=== PATIENT | female | born 1995 | race Caucasian/White ===

== ENCOUNTER 2017-04-28 15:28 | Emergency (ER) | payer BC ==
[2017-04-28 15:41] VITALS: RESP 16; TEMP 97.4
[2017-04-28] MEDS ORDERED: SODIUM CHLORIDE 0.9% 500 ML IV STA (17:02)
--- NOTE | 2017-04-28 17:03 | ED ---
General Adult HPI - General Chief complaint: Vaginal Bleeding Stated complaint: 5 wks and spotting Time Seen by Provider: 04/28/17 16:46 Source: patient, RN notes reviewed Mode of arrival: ambulatory Limitations: no limitations - History of Present Illness Initial comments: Patient's a 21-year-old female G1, P0, presenting today with chief complaint of some vaginal spotting and lower abdominal cramping. Patient admits that she is approximately 5 weeks from last menstrual cycle. She states that cramping started earlier this morning. Also admits to some spotting. She states the cramping has improved. She states she is currently no longer spotting. She does admit that it was a bright red color that she saw earlier in the morning. Patient denies any other complaints or symptoms at this time. Patient denies any recent fever, chills, shortness of breath, chest pain, back pain, numbness or tingling, constipation or diarrhea, headaches or visual changes, or any other complaints. - Related Data Home Medications Medication Instructions Recorded Confirmed Albuterol Inhaler [Ventolin Hfa 1 - 2 puff INHALATION RT-QID PRN 04/28/17 Inhaler] Allergies Allergy/AdvReac Type Severity Reaction Status Date / Time No Known Allergies Allergy Verified 04/28/17 16:49 Review of Systems ROS Statement: Those systems with pertinent positive or pertinent negative responses have been documented in the HPI. ROS Other: All systems not noted in ROS Statement are negative. Past Medical History Past Medical History: Asthma History of Any Multi-Drug Resistant Organisms: None Reported Past Surgical History: No Surgical Hx Reported Past Psychological History: No Psychological Hx Reported Smoking Status: Never smoker Past Alcohol Use History: None Reported Past Drug Use History: None Reported General Exam - General Exam Comments Initial Comments: General: The patient is awake and alert, in no distress, and does not appear acutely ill. Eye: Pupils are equal, round and reactive to light, extra-ocular movements are intact. No nystagmus. There is normal conjunctiva bilaterally. No signs of icterus. Ears, nose, mouth and throat: There are moist mucous membranes and no oral lesions. Neck: The neck is supple, there is no tenderness or JVD. Cardiovascular: There is a regular rate and rhythm. No murmur, rub or gallop is appreciated. Respiratory: Lungs are clear to auscultation, respirations are non-labored, breath sounds are equal. No wheezes, stridor, rales, or rhonchi. Gastrointestinal: Mild tenderness right lower quadrant. No rebound tenderness. No guarding. No CVA tenderness. Musculoskeletal: Normal ROM, no tenderness. Strength 5/5. Sensation intact. Pulses equal bilaterally 2+. Neurological: A&O x 3. CN II-XII intact, There are no obvious motor or sensory deficits. Coordination appears grossly intact. Speech is normal. Skin: Skin is warm and dry and no rashes or lesions are noted. Psychiatric: Cooperative, appropriate mood & affect, normal judgment. Limitations: no limitations Course Vital Signs 04/28/17 15:39 Temperature 97.4 F L Pulse Rate 102 H Respiratory 16 Rate Blood Pressure 132/82 O2 Sat by Pulse 100 Oximetry Medical Decision Making - Medical Decision Making Case discussed in detail with attending physician Dr. Vance. Patient reexamined at this time shows no signs of distress resting comfortably. Patient's ultrasound reviewed and shows no intrauterine at this time. Does show complex cystic lesion on the right ovary measuring 2.5 cm. Patient's labs been reviewed beta hCG 1200. Rh+. Patient is in the pain has improved. Currently comfortable. Abdomen soft on palpation. Vitals are stable. Remaining labs been reviewed. Repeat urinalysis was performed to rule out infection. At this time patient will be discharged home to follow-up with her [employer]. We'll have a prescription for repeat beta hCG. At this time shows comfortable in his in agreement with this plan. She is advised to return if abdominal pain increases or worsens or for any other concerns. - Lab Data Result diagrams: 04/28/17 18:22 04/28/17 18:22 Lab Results 04/28/17 04/28/17 04/28/17 Range/Units 16:00 18:22 18:22 WBC 13.5 H (3.8-10.6) k/uL RBC 4.74 (3.80-5.40) m/uL Hgb 14.0 (11.4-16.0) gm/dL Hct 45.2 (34.0-46.0) % MCV 95.5 (80.0-100.0) fL MCH 29.6 (25.0-35.0) pg MCHC 31.0 (31.0-37.0) g/dL RDW 12.4 (11.5-15.5) % Plt Count 288 (150-450) k/uL Neutrophils % 70 % Lymphocytes % 22 % Monocytes % 5 % Eosinophils % 2 % Basophils % 0 % Neutrophils # 9.4 H (1.3-7.7) k/uL Lymphocytes # 2.9 (1.0-4.8) k/uL Monocytes # 0.6 (0-1.0) k/uL Eosinophils # 0.3 (0-0.7) k/uL Basophils # 0.0 (0-0.2) k/uL Sodium 139 (137-145) mmol/L Potassium 3.9 (3.5-5.1) mmol/L Chloride 103 (98-107) mmol/L Carbon Dioxide 22 (22-30) mmol/L Anion Gap 14 mmol/L BUN 11 (7-17) mg/dL Creatinine 0.60 (0.52-1.04) mg/dL Est GFR (MDRD) Af Amer >60 (>60 ml/min/1.73 sqM) Est GFR (MDRD) Non-Af >60 (>60 ml/min/1.73 sqM) Glucose 77 (74-99) mg/dL Calcium 9.8 (8.4-10.2) mg/dL Total Bilirubin 0.4 (0.2-1.3) mg/dL AST 19 (14-36) U/L ALT 28 (9-52) U/L Alkaline Phosphatase 70 (38-126) U/L Total Protein 7.6 (6.3-8.2) g/dL Albumin 4.5 (3.5-5.0) g/dL HCG, Quant 1286.1 mIU/mL Urine Color Yellow Urine Appearance Cloudy H (Clear) Urine pH 5.5 (5.0-8.0) Ur Specific [place] 1.027 (1.001-1.035) Urine Protein Trace H (Negative) Urine Glucose (UA) Negative (Negative) Urine Ketones Negative (Negative) Urine Blood Trace H (Negative) Urine Nitrite Negative (Negative) Urine Bilirubin Negative (Negative) Urine Urobilinogen <2.0 (<2.0) mg/dL Ur Leukocyte Esterase Large H (Negative) Urine RBC 5 (0-5) /hpf Urine WBC 13 H (0-5) /hpf Ur Squamous Epith Cells 17 H (0-4) /hpf Calcium Oxalate Crystal Occasional H (None) /hpf Urine Bacteria Occasional H (None) /hpf Urine Mucus Moderate H (None) /hpf Blood Type Blood Type Recheck 04/28/17 04/28/17 Range/Units 18:22 19:16 WBC (3.8-10.6) k/uL RBC (3.80-5.40) m/uL Hgb (11.4-16.0) gm/dL Hct (34.0-46.0) % MCV (80.0-100.0) fL MCH (25.0-35.0) pg MCHC (31.0-37.0) g/dL RDW (11.5-15.5) % Plt Count (150-450) k/uL Neutrophils % % Lymphocytes % % Monocytes % % Eosinophils % % Basophils % % Neutrophils # (1.3-7.7) k/uL Lymphocytes # (1.0-4.8) k/uL Monocytes # (0-1.0) k/uL Eosinophils # (0-0.7) k/uL Basophils # (0-0.2) k/uL Sodium (137-145) mmol/L Potassium (3.5-5.1) mmol/L Chloride (98-107) mmol/L Carbon Dioxide (22-30) mmol/L Anion Gap mmol/L BUN (7-17) mg/dL Creatinine (0.52-1.04) mg/dL Est GFR (MDRD) Af Amer (>60 ml/min/1.73 sqM) Est GFR (MDRD) Non-Af (>60 ml/min/1.73 sqM) Glucose (74-99) mg/dL Calcium (8.4-10.2) mg/dL Total Bilirubin (0.2-1.3) mg/dL AST (14-36) U/L ALT (9-52) U/L Alkaline Phosphatase (38-126) U/L Total Protein (6.3-8.2) g/dL Albumin (3.5-5.0) g/dL HCG, Quant mIU/mL Urine Color Light Yellow Urine Appearance Clear (Clear) Urine pH 6.5 (5.0-8.0) Ur Specific [place] 1.003 (1.001-1.035) Urine Protein Negative (Negative) Urine Glucose (UA) Negative (Negative) Urine Ketones Trace H (Negative) Urine Blood Negative (Negative) Urine Nitrite Negative (Negative) Urine Bilirubin Negative (Negative) Urine Urobilinogen <2.0 (<2.0) mg/dL Ur Leukocyte Esterase Trace H (Negative) Urine RBC (0-5) /hpf Urine WBC <1 (0-5) /hpf Ur Squamous Epith Cells 1 (0-4) /hpf Calcium Oxalate Crystal (None) /hpf Urine Bacteria Rare H (None) /hpf Urine Mucus (None) /hpf Blood Type A Positive Blood Type Recheck No Disposition Clinical Impression: Threatened Disposition: HOME SELF-CARE Condition: Good Instructions: Threatened Miscarriage (ED) Additional Instructions: Please follow up with the [employer] in the next 2 days. Please have repeat lab drawn 2 days. Please return here to the emergency room there is any increased abdominal pain or any other concerns. Referrals: None,Stated [Primary Care Provider] - 1-2 days Dario Izaguirre DO [Doctor of Osteopathic Medicine] - 1-2 days Time of Disposition: 19:47
[2017-04-28 17:19] LABS: Appearance,Urine Cloudy (Clear); Bacteria,Urine Occasional /hpf; Bilirubin,Urine Negative (Negative); Blood,Urine Trace (Negative); Calcium Oxalate Crystals,Urine Occasional /hpf; Color,Urine Yellow; Glucose,Urine (UA) Negative (Negative); Ketones,Urine Negative (Negative); Leukocyte Esterase,Urine Large (Negative); Mucus,Urine Moderate /hpf; Nitrite,Urine Negative (Negative); PH, Urine 5.5 (5.0-8.0); Protein,Urine Trace (Negative); RBC,Urine 5 /hpf (0-5); Specific Gravity,Urine 1.027 (1.001-1.035); Squamous Epithelial Cell,Urine 17 /hpf (0-4); Urobilinogen,Urine <2.0 mg/dL (<2.0); WBC,Urine 13 /hpf (0-5)
[2017-04-28 18:42] LABS: Basophils % (A) 0 %; Eosinophils # (A) 0.3 k/uL (0-0.7); Eosinophils % (A) 2 %; HCT 45.2 % (34.0-46.0); Lymphocytes # (A) 2.9 k/uL (1.0-4.8); Lymphocytes % (A) 22 %; MCH 29.6 pg (25.0-35.0); MCV 95.5 fL (80.0-100.0); Mean Platelet Volume 7.8; Monocytes # (A) 0.6 k/uL (0-1.0); Monocytes % (A) 5 %; Neutrophils # (A) 9.4 k/uL (1.3-7.7); Neutrophils % (A) 70 %; Platelet Count 288 k/uL (150-450); RBC 4.74 m/uL (3.80-5.40); RDW 12.4 % (11.5-15.5); WBC 13.5 k/uL (3.8-10.6)
[2017-04-28 18:57] LABS: ALT 28 U/L (9-52); AST 19 U/L (14-36); Albumin 4.5 g/dL (3.5-5.0); Alkaline Phosphatase 70 U/L (38-126); Anion Gap 14 mmol/L; Blood Urea Nitrogen 11 mg/dL (7-17); Calcium 9.8 mg/dL (8.4-10.2); Carbon Dioxide 22 mmol/L (22-30); Chloride 103 mmol/L (98-107); Glucose 77 mg/dL (74-99); Potassium 3.9 mmol/L (3.5-5.1); Sodium 139 mmol/L (137-145); Total Bilirubin 0.4 mg/dL (0.2-1.3); Total Protein 7.6 g/dL (6.3-8.2)
--- NOTE | 2017-04-28 19:00 | US ---
EXAMINATION TYPE: US OB <=14 wks transvag DATE OF EXAM: 04/28/2017 COMPARISON: NONE CLINICAL HISTORY: 21-year-old female Pain. Spotting EXAM PERFORMED: Transvaginal (TV) and Transabdominal (TA) Transvaginal scanning was medically necessary to evaluate the right ovary. FINDINGS: GESTATIONAL AGE / DATING Physician Established: Not yet established Dates by LMP: (4 weeks/6 days) EDC: 12/30/2017 Dates by First Scan: No previous, this is first scan Dates by Current Scan for: No IUP seen at this time MATERNAL ANATOMY Uterus: 7.6 x 4.1 x 4.6 cm. Endometrium measures 1.5 cm. Suggestion of some calcifications along the lower uterine segment. Right Ovary: 4.2 x 3.0 x 3.3 cm Left Ovary: 2.9 x 1.3 x 2.1 cm Post CDS / Adnexa: Small amount of free fluid visualized in bilateral adnexa and posterior cul de sac Presence of free fluid: Yes Presence of corpus luteal cyst: yes, right ovary measuring 2.3 x 2.5 x 2.4 cm . This is round, thin-w alled, and with mural based nodularity that shows no vascularity. 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 Cystic area visualized right ovary, most likely co rpus luteal cyst. Free fluid visualized in bilateral adnexa and posterior cul de sac. IMPRESSION: 1. No intrauterine visualized at this time. Differential considerations include too early to visualize intrauterine , failed , a nonvisualized ectopic . Correlate w ith serial beta hCGs and ultrasound follow-up as indicated. 2. Complex cystic lesion in the right ovary measures 2.5 cm. Thick-walled with mural-based nodularity . Suspect hemorrhagic corpus luteum with retractile clot. This can be reassessed on the patient's fol low-up. 3. Moderate pelvic free fluid.
[2017-04-28 19:13] LABS: HCG,Quantitative Serum 1286.1 mIU/mL
[2017-04-28 19:35] LABS: Appearance,Urine Clear (Clear); Bacteria,Urine Rare /hpf; Bilirubin,Urine Negative (Negative); Blood,Urine Negative (Negative); Color,Urine Light Yellow; Glucose,Urine (UA) Negative (Negative); Ketones,Urine Trace (Negative); Leukocyte Esterase,Urine Trace (Negative); Nitrite,Urine Negative (Negative); PH, Urine 6.5 (5.0-8.0); Protein,Urine Negative (Negative); Specific Gravity,Urine 1.003 (1.001-1.035); Squamous Epithelial Cell,Urine 1 /hpf (0-4); Urobilinogen,Urine <2.0 mg/dL (<2.0); WBC,Urine <1 /hpf (0-5)
[2017-04-28 19:59] VITALS: BP 127/60; PULSE 89
== END 2017-04-28 19:58 | disposition home or self-care (01) ==
LOC: EC 15:28
DX: O20.0 Threatened abortion (principal); Z3A.01 Less than 8 weeks gestation of pregnancy; Z53.8 Procedure and treatment not carried out for other reasons
CPT/HCPCS: 36415; 76801; 76817; 80053; 81001; 84702; 85025; 86900; 86901; 87086; 93976; 99284

== ENCOUNTER → 2017-04-30 | Outpatient (CLI) | payer BC | END | disposition home or self-care (01) | LOC: LABWHC1 11:39 | PROVIDERS: ATTEND Physician Assistant | DX: O20.0 Threatened abortion (principal); Z3A.00 Weeks of gestation of pregnancy not specified | CPT/HCPCS: 36415; 84702 ==

== ENCOUNTER 2017-10-26 19:29 | Observation (INO) | payer BC, OTHER ==
[2017-10-26] MEDS ORDERED: LACTATED RINGERS 500 ML IV SCH (20:00)
--- NOTE | 2017-10-26 20:09 | P.HPOB ---
History of Present Illness H&P Date: 10/26/17 Chief Complaint: Cramping for 4 days. This patient is a 22-year-old 1 para 0 female estimated date of confinement 12/30/2017 estimated gestational age 30-5/7 weeks' gestation who presents to labor and delivery with complaints of cramping since the . Patient states that she was having some cramping in the office seen by Dr. Little on that day. Patient continues to have cramping. Examination here shows her cervix to be closed however she did have some bright red bleeding after examination. She also has an overwhelming yeast infection. Patient's appears to be complicated by recent incarceration however she has been discharged. Denies recent intercourse or abdominal trauma. Review of Systems Genitourinary: Reports as per HPI, Reports Menstruation: Reports amenorrhea Past Medical History Past Medical History: Asthma History of Any Multi-Drug Resistant Organisms: None Reported Past Surgical History: No Surgical Hx Reported Past Anesthesia/Blood Transfusion Reactions: No Reported Reaction Past Psychological History: No Psychological Hx Reported Smoking Status: Never smoker Past Alcohol Use History: None Reported Past Drug Use History: None Reported Medications and Allergies Home Medications Medication Instructions Recorded Confirmed Type Albuterol Inhaler [Ventolin Hfa 1 - 2 puff INHALATION RT-QID PRN 04/28/17 History Inhaler] Allergies Allergy/AdvReac Type Severity Reaction Status Date / Time No Known Allergies Allergy Verified 10/26/17 19:51 Exam Intake and Output 10/26/17 10/26/17 10/26/17 06:59 14:59 22:59 Other: Weight 90.718 kg - OBG Physical Exam Abdomen: bowel sounds normal, no diffuse tenderness, no bruit present, no guarding noted, no hepatomegaly, no splenomegaly, no mass Cervix: no lesion, discharge (Yeast vaginitis), friable Uterus: enlarged Assessment and Plan Assessment: This is a 22-year-old 1 para 0 female 38-4/7 weeks presents with complaints of 4 days of cramping. Cervix is non-worrisome at this time but she did have some bright red bleeding on exam. This very well may be traumatic in nature just from our exam however for this reason I'm going to get a complete ultrasound, check a CBC, send a fibronectin, give the patient IV fluid bolus and continuous monitoring. heart tones are reassuring at this time. I am going to admit this patient for evaluation and observation. (1) Third trimester Current Visit: Yes Status: Acute Code(s): Z34.93 - ENCNTR FOR SUPRVSN OF NORMAL PREG, UNSP, THIRD TRIMESTER SNOMED Code(s): 28673447 (2) Abdominal pain affecting Current Visit: Yes Status: Acute Code(s): O26.899 - OTH RELATED CONDITIONS, UNSPECIFIED TRIMESTER; R10.9 - UNSPECIFIED ABDOMINAL PAIN SNOMED Code(s): 160953194
[2017-10-26 20:19] LABS: Appearance,Urine Cloudy (Clear); Bacteria,Urine Occasional /hpf; Bilirubin,Urine Negative (Negative); Blood,Urine Moderate (Negative); Color,Urine Yellow; Glucose,Urine (UA) Negative (Negative); Ketones,Urine Negative (Negative); Leukocyte Esterase,Urine Large (Negative); Mucus,Urine Rare /hpf; Nitrite,Urine Negative (Negative); PH, Urine 6.5 (5.0-8.0); Protein,Urine Trace (Negative); RBC,Urine 39 /hpf (0-5); Specific Gravity,Urine 1.011 (1.001-1.035); Squamous Epithelial Cell,Urine 6 /hpf (0-4); Urobilinogen,Urine <2.0 mg/dL (<2.0); WBC,Urine 3 /hpf (0-5)
[2017-10-26 20:27] LABS: Amphetamine Screen,Urine Not Detected (NotDetected); Barbiturate Screen,Urine Not Detected (NotDetected); Benzodiazepines Screen,Urine Not Detected (NotDetected); Cocaine Screen,Urine Not Detected (NotDetected); Methadone Screen, Urine Not Detected (NotDetected); Opiate Screen,Urine Not Detected (NotDetected); Oxycodone Screen, Urine Not Detected (NotDetected); Phencyclidine Screen,Urine Not Detected (NotDetected); Tricyclic Antidepressant,Urine Not Detected (NotDetected); Urn Cannabinoid Scrn Not Detected (NotDetected)
[2017-10-26 20:30] VITALS: BMI 37.8
--- NOTE | 2017-10-26 20:51 | US ---
EXAMINATION TYPE: US OB >= 14 wk fetus DATE OF EXAM: 10/26/2017 COMPARISON: None CLINICAL HISTORY: 30wks with pain/spotting TECHNIQUE: Transabdominal (TA) GESTATIONAL AGE / DATING Physician Established: (30 weeks/5 days) EDC: 12/30/2017 Dates by LMP: (30 weeks/5 days) EDC: 12/30/2017 Dates by First Scan: No previous this is first scan Dates by Current Scan: (31 weeks/3 days) EDC: 12/25/2017 Beta HCG (if available): Not available at this time SURVEY IUP: Single PLACENTA: Anterior PREVIA: No Previa GUS: 15.0 cm Normal CERVICAL LENGTH (transabdominal: norm > 3.0cm): 3.7 cm BIOMETRY PRESENTATION: Vertex LIE: Longitudinal BPD: 8.0 cm 32 weeks / 1 days HC: 30.05 cm 33 weeks / 2 days AC: 27.87 cm 31 weeks / 6 days FL: 5.86 cm 30 weeks / 4 days ESTIMATED WEIGHT IN GRAMS: 1816 grams ESTIMATED WEIGHT IN LBS/OZ: 4 lbs. 0 oz. WEIGHT PERCENTAGE BASED ON ESTABLISHED DATES: 71.2% HC/AC: 1.08 Normal FL/AC: 21.04 Normal HEART RATE: 131 bpm RHYTHM: Normal Viable IUP, measurements consistent with dates. IMPRESSION: Ultrasound gestational age is 31 weeks 3 days. Estimated weight is 1816 g. ELIZABETH is 12/25/2017.
[2017-10-26 21:10] LABS: Basophils % (A) 0 %; Eosinophils # (A) 0.1 k/uL (0-0.7); Eosinophils % (A) 1 %; HCT 31.9 % (34.0-46.0); HGB 10.8 gm/dL (11.4-16.0); Lymphocytes # (A) 1.9 k/uL (1.0-4.8); Lymphocytes % (A) 20 %; MCH 30.9 pg (25.0-35.0); MCV 90.9 fL (80.0-100.0); Mean Platelet Volume 7.8; Monocytes # (A) 0.5 k/uL (0-1.0); Monocytes % (A) 5 %; Neutrophils # (A) 7.1 k/uL (1.3-7.7); Neutrophils % (A) 72 %; Platelet Count 246 k/uL (150-450); RBC 3.51 m/uL (3.80-5.40); RDW 13.2 % (11.5-15.5); WBC 9.8 k/uL (3.8-10.6)
[2017-10-26] MEDS: LACTATED RINGERS 1,000 ML IV SCH (23:32)
[2017-10-27 04:00] VITALS: BP 139/84; PULSE 103; RESP 16; TEMP 98.4
[2017-10-27] MEDS: LACTATED RINGERS 1,000 ML IV SCH (06:20)
--- NOTE | 2017-10-27 07:51 | P.PN ---
Progress Note - Text Progress Note Date: 10/27/17 Hospital day #2. Ligia is resting without new complaints. She is no longer having any cramping and no vaginal bleeding. Ultrasound was normal with a normal cervical length. fibronectin was negative. Prolonged monitoring shows a reactive NST without concerns. My impression is this patient has no evidence of labor or evidence of abruption. I believe her bleeding after her exam was secondary to her severe yeast infection which I asked her to treat. She'll follow up with Dr. Izaguirre on November 05 as scheduled or earlier if indicated. Plan is to discharge home today.
--- NOTE | 2017-10-27 07:54 | P.DS ---
Providers Date of admission: 10/26/17 19:52 Expected date of discharge: 10/27/17 Attending physician: Dario Izaguirre Primary care physician: Stated None - Discharge Diagnosis(es) (1) Third trimester Current Visit: Yes Status: Acute (2) Abdominal pain affecting Current Visit: Yes Status: Acute Hospital Course: Please see dictated H&P for this patient's admission. Brief summary this is a 22-year-old female 30-1/2 weeks gestation is admitted to labor and delivery with complaints of abdominal pain. Patient also had some bleeding after a pelvic examination. Complete evaluation was done including ultrasound and blood work and patient was admitted for prolonged monitoring. Overnight patient did well and there is no evidence of maternal or compromise. Patient's felt be stable for discharge home follow up with Dr. Little on the . She was given strict instructions to call or return if she worsening or recurrent symptoms. Patient Condition at Discharge: Good Plan - Discharge Summary New Discharge Prescriptions: No Action Pnv No.95/Ferrous Fum/Folic AC [ Multivitamin Tablet] 1 each PO DAILY Discharge Medication List Pnv No.95/Ferrous Fum/Folic AC [ Multivitamin Tablet] 1 each PO DAILY [History] Follow up Appointment(s)/Referral(s): Dario Izaguirre DO [Doctor of Osteopathic Medicine] - 11/05/17 Patient Instructions/Handouts: Labor (DC) Activity/Diet/Wound Care/Special Instructions: No intercourse or strenuous activity. Please follow-up with Dr. Izaguirre is scheduled. Please call if any significant vaginal bleeding or recurrence of symptoms. Discharge Disposition: HOME SELF-CARE
== END 2017-10-27 08:15 | disposition home or self-care (01) ==
LOC: FBPOP 19:29 → 4FBP 19:52
PROVIDERS: ADMIT Obstetrics & Gynecology; ATTEND Obstetrics & Gynecology
DX: O26.899 Other specified pregnancy related conditions, unspecified trimester (principal); R10.9 Unspecified abdominal pain; B37.9 Candidiasis, unspecified; O98.813 Other maternal infectious and parasitic diseases complicating pregnancy, third trimester; J45.909 Unspecified asthma, uncomplicated; O99.513 Diseases of the respiratory system complicating pregnancy, third trimester; Z3A.38 38 weeks gestation of pregnancy
CPT/HCPCS: 59025; 82731; 85025; 81001; 80306; 87086; 76805; G0378 ×2; G0463; 99213

== ENCOUNTER 2017-11-26 09:26 | Outpatient (CLI) | payer OTHER ==
[2017-11-26 10:32] LABS: Amorphous Sediment,Urine Rare /hpf; Appearance,Urine Cloudy (Clear); Bacteria,Urine Rare /hpf; Bilirubin,Urine Negative (Negative); Blood,Urine Trace (Negative); Color,Urine Light Yellow; Glucose,Urine (UA) Negative (Negative); Ketones,Urine Negative (Negative); Leukocyte Esterase,Urine Large (Negative); Nitrite,Urine Negative (Negative); Protein,Urine Trace (Negative); RBC,Urine 11 /hpf (0-5); Specific Gravity,Urine 1.008 (1.001-1.035); Squamous Epithelial Cell,Urine 6 /hpf (0-4); Urobilinogen,Urine <2.0 mg/dL (<2.0); WBC,Urine 18 /hpf (0-5)
[2017-11-26 11:05] VITALS: BP 127/90; PULSE 98; RESP 18; TEMP 97.9
--- NOTE | 2018-01-10 18:03 | P.MSEPDOC ---
Presenting Problems - Arrival Data Date of Arrival on Unit: 11/26/17 Time of Arrival on Unit: 09:26 Mode of Transport: Ambulatory Vital Signs - Temperature Temperature: 97.9 F Temperature Source: Temporal Artery Scan - Pulse Right Pulse Oximetery Pulse Rate: 98 Pulse Assessment Method: Pulse Oximetry - Respirations Respiratory Rate: 18 Oxygen Delivery Method: Room Air O2 Sat by Pulse Oximetry: 100 - Blood Pressure Right Arm Blood Pressure: 127/90 Blood Pressure Mean: 102 Blood Pressure Source: Automatic Cuff Medical Screen Scoring (Post) - Cervical Exam Dilation: 0 cm = 0 Membranes: Intact - Uterine Contractions Frequency: > 5 minutes apart = 1 Duration: N/A Intensity: N/A - Maternal Vital Signs Signs of Preeclampsia: N/A Maternal Respirations: N/A - Pain Assessment Pain Location and Character: Abdomen Pain Scale Used: Numeric (1 - 10) Pain Intensity: 8 Pain Management Goal: 2 Pain Description: *Acute, Cramping, Dull, Sharp Pain Radiation Location: left side Pain Frequency: Occasional Pain Duration: 1 Pain Duration Units: Days Pain Behavior: Facial Grimacing, Guarding, Vocalization Effects of Pain: none Pain Aggravating Factors: None Pharmacological Interventions: Discuss Pain Med Options Non-Pharmacological Interventions: Reduce Environmental Stimuli - Maternal Trauma Maternal Trauma: N/A - Assessment Heart Rate: 135 Heart Rate - NICHD Category: Category I (Normal) = 0 NST: Reactive Position: Non-vertex & not laboring = 3 Station: N/A - Total Score Total Score (Post): 4 - Post Treatment Level of Risk Post Treatment Level of Risk: Low (0-5) Physician Notification (Post) - Physician Notified Physician Notified Date: 11/26/17 Physician Notified Time: 10:14 Physician/Practitioner Notified:: Dr Gooden Spoke With: telephone New Order Received: Yes (UA, culture, discharge patient with instructions) - Notification Comment Comment: pt here for abdominal pain/contractions, pt cervix closed, UA sent and then sent for culture, contractions irregular. Disposition - Disposition OB Disposition: Discharge to home Discharge Date: 11/26/17 Discharge Time: 10:55 I agree with the RN Medical Screening Exam: Yes Risk & Benefit of care provided described in d/c instruction: Yes Diagnosis: FALSE LABOR BEFORE 37 COMPLETED WEEKS OF GEST, UNSP TRI
== END 2017-11-26 10:55 | disposition home or self-care (01) ==
LOC: FBPOP 09:26
PROVIDERS: ATTEND Obstetrics & Gynecology
DX: O47.00 False labor before 37 completed weeks of gestation, unspecified trimester (principal); Z3A.00 Weeks of gestation of pregnancy not specified
CPT/HCPCS: 59025; 81001; 87086; G0463; 99213

== ENCOUNTER 2017-12-03 14:17 | Outpatient (CLI) | payer OTHER ==
[2017-12-03 15:01] LABS: Appearance,Urine Clear (Clear); Bilirubin,Urine Negative (Negative); Blood,Urine Negative (Negative); Color,Urine Light Yellow; Glucose,Urine (UA) Negative (Negative); Ketones,Urine Negative (Negative); Leukocyte Esterase,Urine Moderate (Negative); Nitrite,Urine Negative (Negative); Protein,Urine Negative (Negative); RBC,Urine 1 /hpf (0-5); Specific Gravity,Urine 1.005 (1.001-1.035); Squamous Epithelial Cell,Urine 1 /hpf (0-4); Urobilinogen,Urine <2.0 mg/dL (<2.0); WBC,Urine 1 /hpf (0-5)
[2017-12-03 16:19] LABS: ALT 40 U/L (9-52); AST 28 U/L (14-36); Blood Urea Nitrogen 7 mg/dL (7-17); LDH 381 U/L (313-618); Uric Acid 3.9 mg/dL (3.7-7.4)
[2017-12-03 16:20] LABS: Basophils % (A) 0 %; Eosinophils # (A) 0.1 k/uL (0-0.7); Eosinophils % (A) 1 %; HCT 31.9 % (34.0-46.0); HGB 10.7 gm/dL (11.4-16.0); Lymphocytes # (A) 1.5 k/uL (1.0-4.8); Lymphocytes % (A) 15 %; MCH 29.5 pg (25.0-35.0); MCHC 33.6 g/dL (31.0-37.0); MCV 87.7 fL (80.0-100.0); Mean Platelet Volume 7.9; Monocytes # (A) 0.4 k/uL (0-1.0); Monocytes % (A) 4 %; Neutrophils # (A) 7.7 k/uL (1.3-7.7); Neutrophils % (A) 78 %; Platelet Count 302 k/uL (150-450); RBC 3.64 m/uL (3.80-5.40); RDW 12.8 % (11.5-15.5); WBC 9.9 k/uL (3.8-10.6)
[2017-12-03 17:33] VITALS: BP 139/93; PULSE 96; RESP 18; TEMP 97.1
[2017-12-04 06:19] LABS: Hemoglobin A1C 5.2 % (4.0-6.0)
--- NOTE | 2017-12-22 08:12 | P.MSEPDOC ---
Presenting Problems - Arrival Data Date of Arrival on Unit: 12/03/17 Time of Arrival on Unit: 14:17 Mode of Transport: Ambulatory Vital Signs - Temperature Temperature: 97.1 F Temperature Source: Temporal Artery Scan - Pulse Right Pulse Oximetery Pulse Rate: 96 Pulse Assessment Method: Pulse Oximetry - Respirations Respiratory Rate: 18 Oxygen Delivery Method: Room Air O2 Sat by Pulse Oximetry: 99 - Blood Pressure Right Arm Blood Pressure: 139/93 Blood Pressure Mean: 108 Blood Pressure Source: Automatic Cuff Medical Screen Scoring (Post) - Cervical Exam Dilation: Exam Deferred Effacement: Exam Deferred - Uterine Contractions Frequency: > 5 minutes apart = 1 Duration: N/A Intensity: N/A - Maternal Vital Signs Maternal Temperature: N/A Maternal Blood Pressure: Systolic >139 = 2 Signs of Preeclampsia: N/A Maternal Respirations: N/A - Pain Assessment Pain Scale Used: Numeric (1 - 10) Pain Intensity: 0 - Maternal Trauma Maternal Trauma: N/A - Assessment Heart Rate: 135 Heart Rate - NICHD Category: Category I (Normal) = 0 NST: Reactive Position: N/A Station: N/A - Total Score Total Score (Post): 3 - Post Treatment Level of Risk Post Treatment Level of Risk: Low (0-5) Physician Notification (Post) - Physician Notified Physician Notified Date: 12/03/17 Physician Notified Time: 16:35 Physician/Practitioner Notified:: Dr Izaguirre Spoke With: Dr Izaguirre - in department New Order Received: Yes - Notification Comment Comment: pt sent from office with orders for PIH evaluation, serial BPs, Labs, NST orders. Pt discharged with orders for 24 hours urine and to return tomorrow after 24 hour urine completed for another NST and serial BPs Disposition - Disposition OB Disposition: Discharge to home Discharge Date: 12/03/17 Discharge Time: 17:15 I agree with the RN Medical Screening Exam: Yes Risk & Benefit of care provided described in d/c instruction: Yes Diagnosis: GESTATIONAL HTN W/O SIGNIFICANT PROTEINURIA, THIRD TRIMESTER
== END 2017-12-03 17:15 | disposition home or self-care (01) ==
LOC: FBPOP 14:17
PROVIDERS: ATTEND Obstetrics & Gynecology
DX: O13.3 Gestational [pregnancy-induced] hypertension without significant proteinuria, third trimester (principal); Z3A.00 Weeks of gestation of pregnancy not specified
CPT/HCPCS: 59025; 81001; 82565; 83036; 83615; 84450; 84460; 84520; 84550; 85025

== ENCOUNTER 2017-12-04 16:29 | Outpatient (CLI) | payer OTHER ==
[2017-12-04 17:50] LABS: Collection Time,Urine 24 hrs; Total Volume 24 Hour,Urine 2100 mls (800-1800)
[2017-12-04 18:03] LABS: Total Protein 24 Hour,Urine 420 mg/24hr (42.0-225.0)
[2017-12-04 19:03] VITALS: BP 136/92; PULSE 98; RESP 15; TEMP 97.3
--- NOTE | 2017-12-22 09:38 | P.MSEPDOC ---
Presenting Problems - Arrival Data Date of Arrival on Unit: 12/04/17 Time of Arrival on Unit: 16:29 Mode of Transport: Ambulatory Vital Signs - Temperature Temperature: 97.3 F Temperature Source: Temporal Artery Scan - Pulse Brachial Pulse Rate: 98 Pulse Assessment Method: Automatic Cuff - Respirations Respiratory Rate: 15 Oxygen Delivery Method: Room Air O2 Sat by Pulse Oximetry: 97 - Blood Pressure Right Arm Sitting Blood Pressure: 136/92 Blood Pressure Mean: 106 Blood Pressure Source: Automatic Cuff Medical Screen Scoring (Post) - Cervical Exam Dilation: Exam Deferred Effacement: Exam Deferred Membranes: Intact - Uterine Contractions Frequency: N/A Duration: N/A Intensity: N/A - Maternal Vital Signs Maternal Temperature: N/A Maternal Blood Pressure: Systolic >139 = 2 Signs of Preeclampsia: Headache = 1 Maternal Respirations: N/A - Maternal Trauma Maternal Trauma: N/A - Assessment Heart Rate: 135 Heart Rate - NICHD Category: Category I (Normal) = 0 NST: Reactive Position: N/A Station: N/A - Total Score Total Score (Post): 3 - Post Treatment Level of Risk Post Treatment Level of Risk: Low (0-5) Physician Notification (Post) - Physician Notified Physician Notified Date: 12/04/17 Physician Notified Time: 18:10 Spoke With: Dr Izaguirre New Order Received: Yes - Notification Comment Comment: reported urine results, reactive NST, bp's and pt states she has a slight FITZGERALD today. orders received to dc pt home and have her return on 12/07/17 for serial bp's and NST. pt must also return to triage before that if she experiences any of the per eclapmsia symptoms previously discussed per t.oJessica Izaguirre. Pt well educated on per eclampsia s/s and when to return to triage by Donell Xiao RN. Disposition - Disposition OB Disposition: Triage, Discharge to home, Written follow up instructions reviewed Discharge Date: 12/04/17 Discharge Time: 18:10 I agree with the RN Medical Screening Exam: Yes Risk & Benefit of care provided described in d/c instruction: Yes Diagnosis: GESTATIONAL HTN W/O SIGNIFICANT PROTEINURIA, THIRD TRIMESTER
== END 2017-12-04 18:10 | disposition home or self-care (01) ==
LOC: FBPOP 16:29
PROVIDERS: ATTEND Obstetrics & Gynecology
DX: O13.3 Gestational [pregnancy-induced] hypertension without significant proteinuria, third trimester (principal); Z3A.00 Weeks of gestation of pregnancy not specified
CPT/HCPCS: 59025; 81050; 84156; G0463; 99215

== ENCOUNTER 2017-12-07 14:19 | Outpatient (CLI) | payer OTHER ==
[2017-12-07 14:31] VITALS: BP 136/92; PULSE 97; RESP 16; TEMP 98.3
--- NOTE | 2017-12-10 08:41 | P.MSEPDOC ---
Presenting Problems - Arrival Data Date of Arrival on Unit: 12/07/17 Time of Arrival on Unit: 14:00 Mode of Transport: Ambulatory - Complaint OB-Reason for Admission/Chief Complaint: Other Comment: blood pressure check NST Medical History - Information : 1 Para: 0 Term: 0 : 0 Abortions: Spontaneous or Elective: 0 Number of Living Children: 0 - Gestational Age Gestational Age by ELIZABETH (wks/days): 36 Weeks and 5 Days Review of Systems - Review of Systems Constitutional: No problems Breast: No problems ENT: No problems Cardiovascular: No problems Respiratory: No problems Gastrointestinal: No problems Genitourinary: No problems Musculoskeletal: No problems Neurological: No problems Skin: No problems Vital Signs - Temperature Temperature: 98.3 F Temperature Source: Axillary - Pulse Right Brachial Pulse Rate: 97 Pulse Assessment Method: Automatic Cuff - Respirations Respiratory Rate: 16 Oxygen Delivery Method: Room Air O2 Sat by Pulse Oximetry: 98 - Blood Pressure Right Arm Blood Pressure: 136/92 Blood Pressure Mean: 106 Blood Pressure Source: Automatic Cuff Medical Screen Scoring (Pre) - Uterine Contractions Frequency: > 5 minutes apart = 1 Duration: N/A Intensity: N/A - Maternal Vital Signs Maternal Temperature: N/A Signs of Preeclampsia: N/A Maternal Respirations: N/A - Pain Assessment Pain Scale Used: Numeric (1 - 10) Pain Intensity: 0 Pain Management Goal: 0 Pain Behavior: None Exhibited - Maternal Trauma Maternal Trauma: N/A - Assessment Baseline FHR: 130 Heart Rate - NICHD Category: Category I (Normal) = 0 - Total Score Total Score (Pre): 1 Physician Notification (Post) - Physician Notified Physician Notified Date: 12/07/17 Physician Notified Time: 14:50 Physician/Practitioner Notified:: Zina Spoke With: Zina New Order Received: No - Notification Comment Comment: pt here for repeat serial blood pressures and NST Disposition - Disposition OB Disposition: Discharge to home Discharge Date: 12/07/17 Discharge Time: 14:54 I agree with the RN Medical Screening Exam: Yes Risk & Benefit of care provided described in d/c instruction: Yes Diagnosis: GESTATIONAL HTN W/O SIGNIFICANT PROTEINURIA, THIRD TRIMESTER
== END 2017-12-07 14:58 | disposition home or self-care (01) ==
LOC: FBPOP 14:19
PROVIDERS: ATTEND Obstetrics & Gynecology
DX: O13.3 Gestational [pregnancy-induced] hypertension without significant proteinuria, third trimester (principal); Z3A.36 36 weeks gestation of pregnancy
CPT/HCPCS: 59025; G0463; 99213

== ENCOUNTER 2017-12-10 14:36 | Inpatient (IN) | payer OTHER ==
[2017-12-10] MEDS ORDERED: LIDOCAINE 0.5% (PF) 5 MG/ML (50 ML SDV) SQ PRN (15:33)
[2017-12-10] MEDS ORDERED: CARBOPROST TROMETHAMINE 250 MCG/ML 1 ML AMP IM PRN (15:33)
[2017-12-10] MEDS ORDERED: OXYTOCIN 10 UNIT/ML 1 ML VIAL IM PRN (15:33)
[2017-12-10] MEDS ORDERED: TERBUTALINE 1 MG/ML VIAL SQ PRN (15:33)
[2017-12-10] MEDS ORDERED: METHYLERGONOVINE 0.2 MG/ML 1 ML AMP IM PRN (15:33)
[2017-12-10 16:15] LABS: Basophils % (A) 0 %; Eosinophils # (A) 0.1 k/uL (0-0.7); Eosinophils % (A) 1 %; HCT 33.8 % (34.0-46.0); Lymphocytes # (A) 1.6 k/uL (1.0-4.8); Lymphocytes % (A) 16 %; MCH 28.6 pg (25.0-35.0); MCHC 32.6 g/dL (31.0-37.0); MCV 87.8 fL (80.0-100.0); Mean Platelet Volume 7.7; Monocytes # (A) 0.4 k/uL (0-1.0); Monocytes % (A) 5 %; Neutrophils # (A) 7.5 k/uL (1.3-7.7); Neutrophils % (A) 77 %; Platelet Count 300 k/uL (150-450); RBC 3.85 m/uL (3.80-5.40); RDW 12.9 % (11.5-15.5); WBC 9.7 k/uL (3.8-10.6)
[2017-12-10 16:22] LABS: ALT 31 U/L (9-52); AST 17 U/L (14-36); Blood Urea Nitrogen 10 mg/dL (7-17); LDH 399 U/L (313-618); Uric Acid 4.3 mg/dL (3.7-7.4)
--- NOTE | 2017-12-10 16:39 | P.HPOB ---
History of Present Illness H&P Date: 12/10/17 Chief Complaint: Intrauterine at 37 weeks with gestational hypertension Ligia is a 22-year-old at 37 weeks gestation who has had elevated blood pressures over the last 2-3 weeks. Since that time she is had NSTs and blood pressure checks done with relative frequency and she now is 37 weeks with a blood pressure 146/94 today. She is admitted for gestational hypertension with expectation for induction of labor tomorrow. Should any blood pressure issues arise through the night we'll made of need to start her induction earlier. Risks and benefits of induction were discussed the patient in detail and all questions were answered for. She is aware of increased risk of need for section due to induction but, as her blood pressures have steadily increased, it is safer for us to induce her and try and get her delivered. Pertinent labs fluid A+ blood type Rh and was negative, rubella immune, hepatitis B surface antigen RPR and HIV were all negative. Her course was, complicated by an early incarceration. She was followed very closely during that time crimped with coordination between ourselves and the detention facility. Following her release she delayed in doing her one-hour Glucola screening and we did not get her Glucola screen done at all and ultimately needed to do a hemoglobin A1c which was done on 924 and was 5.2. Refill relatively comfortable that she was not gestationally diabetic due to that finding. Repeat labs have been done today and will plan induction of labor in the a.m. Past Medical History Past Medical History: Asthma History of Any Multi-Drug Resistant Organisms: None Reported Past Surgical History: No Surgical Hx Reported Past Anesthesia/Blood Transfusion Reactions: No Reported Reaction Smoking Status: Never smoker - Past Family History Mother History Unknown: Yes Medications and Allergies Home Medications Medication Instructions Recorded Confirmed Type Pnv No.95/Ferrous Fum/Folic AC 1 each PO DAILY 10/26/17 12/07/17 History [ Multivitamin Tablet] Albuterol Inhaler [Ventolin Hfa 1 - 2 puff INHALATION RT-Q6H PRN 11/26/17 History Inhaler] Allergies Allergy/AdvReac Type Severity Reaction Status Date / Time No Known Allergies Allergy Verified 12/10/17 15:31 Exam Osteopathic Statement: *. No significant issues noted on an osteopathic structural exam other than those noted in the History and Physical/Consult. Intake and Output 10/01/18 10/01/18 10/01/18 06:59 14:59 22:59 Other: Weight 95.254 kg - OBG Physical Exam Breast: both: normal (no masses) Abdomen: bowel sounds normal, no diffuse tenderness, no bruit present, no guarding noted, no hepatomegaly, no splenomegaly, no mass Vulva: both: normal Vagina: normal moisture, no discharge Cervix: no lesion, no discharge Uterus: normal size, normal contour Adnexa: both: normal Anus/Rectum: normal perianal skin, no rectal mass, no hemorrhoids, heme negative Results Result Diagrams: 12/10/17 15:47 12/10/17 15:47 Abnormal Lab Results - Last 24 Hours (Table) 12/10/17 Range/Units 15:47 Hgb 11.0 L (11.4-16.0) gm/dL Hct 33.8 L (34.0-46.0) %
[2017-12-10 17:18] LABS: Amorphous Sediment,Urine Rare /hpf; Appearance,Urine Clear (Clear); Bacteria,Urine Rare /hpf; Bilirubin,Urine Negative (Negative); Blood,Urine Negative (Negative); Color,Urine Light Yellow; Glucose,Urine (UA) Negative (Negative); Ketones,Urine Negative (Negative); Leukocyte Esterase,Urine Large (Negative); Mucus,Urine Rare /hpf; Nitrite,Urine Negative (Negative); Protein,Urine Negative (Negative); RBC,Urine 2 /hpf (0-5); Specific Gravity,Urine 1.009 (1.001-1.035); Squamous Epithelial Cell,Urine 3 /hpf (0-4); Urobilinogen,Urine <2.0 mg/dL (<2.0); WBC,Urine 11 /hpf (0-5)
[2017-12-10 17:35] VITALS: BMI 39.6
[2017-12-11] MEDS: LACTATED RINGERS 1,000 ML IV SCH ×2 (05:56→10:56)
[2017-12-11] MEDS ORDERED: OXYTOCIN 20 UNITS/1000 ML NS 1,000 ML IV SCH (06:00)
[2017-12-11] MEDS ORDERED: AMPICILLIN 2,000 MG in SODIUM CHLORIDE 0.9% 100 ML IVPB ONE (06:00)
[2017-12-11] MEDS ORDERED: BUTORPHANOL 1 MG/ML 1 ML VIAL IV PRN (08:34)
[2017-12-11] MEDS: AMPICILLIN 1,000 MG in SODIUM CHLORIDE 0.9% 50 ML IVPB SCH ×2 (10:09→14:06)
[2017-12-11] MEDS ORDERED: ROPIVACAINE 100 MG, fentaNYL (PF) 200 MCG in SODIUM CHLORIDE 0.9% 76 ML EPIDURAL ONE (12:44)
[2017-12-11] MEDS: hydrALAZINE HCL 20 MG/ML 1 ML VIAL IVP STA ×2 (17:03→17:41)
[2017-12-11] MEDS ORDERED: diphenhydrAMINE 50 MG CAP PO PRN (18:14)
[2017-12-11] MEDS ORDERED: ZOLPIDEM 5 MG TAB PO PRN (18:14)
[2017-12-11] MEDS ORDERED: LANOLIN CREAM 5 GM TUBE TOPICAL PRN (18:14)
[2017-12-11] MEDS ORDERED: SIMETHICONE 80 MG CHEWABLE PO PRN (18:14)
[2017-12-11] MEDS ORDERED: HYDROcodone/APAP 5-325MG 1 EACH TAB PO PRN (18:14)
[2017-12-11] MEDS ORDERED: BENZOCAINE/MENTHOL SPRAY 1 GM/SPRAY AEROSOL TOPICAL PRN (18:14)
[2017-12-11] MEDS ORDERED: diphenhydrAMINE 50 MG/ML 1 ML VIAL IVP PRN ×2 (18:14)
[2017-12-11] MEDS ORDERED: HYDROCORTISONE 2.5% RECTAL CREAM 30 GM TUBE RECTAL PRN (18:14)
[2017-12-11] MEDS ORDERED: WITCH HAZEL 1 EACH MED..PAD TOPICAL PRN (18:14)
[2017-12-11] MEDS ORDERED: diphenhydrAMINE 25 MG CAP PO PRN (18:14)
[2017-12-11] MEDS ORDERED: ACETAMINOPHEN TAB 325 MG TAB PO PRN (18:14)
--- NOTE | 2017-12-11 18:17 | P.PROBDLV ---
Vaginal Delivery Note - . Vaginal Delivery Note: Ligia progressed to complete and pushed with spontaneous vaginal delivery of a viable male over secondary midline laceration. Following delivery of the head from straight occiput anterior position nuchal cord 1 was noted the baby was delivered through the nuchal cord. Interim posterior shoulders were easily delivered mouth nares were then bulb suctioned. Baby was then placed on mother's abdomen where the umbilical cord was allowed to pulsate for 30 seconds prior to clamping and cutting. Once this was accomplished nursery personnel was present to assume care. Placenta was then delivered intact and Pitocin was added to the IV. Lidocaine was used for numbing and laceration was repaired in usual fashion with 3-0 Vicryl. Small avulsion was noted in the left upper labia but this was left alone as was not bleeding. Mother and baby are both stable findings delivery. scores were 8 and 9 at one and 5 minutes respectively and the weight was 6 lbs. 12 oz. It is noted that Ligia had some elevations in her blood pressure near the end is unclear if there were straight due to the pain or her gestational hypertension. She did receive 2 separate doses of 5 mg of hydralazine which did help with her blood pressure. At this time her blood pressure is stable.
[2017-12-11] MEDS: IBUPROFEN 600 MG TAB PO PRN (18:32)
[2017-12-12] MEDS: SENNOSIDES-DOCUSATE SODIUM 1 EACH TAB PO SCH ×3 (01:03→21:02)
--- NOTE | 2017-12-12 08:01 | P.DS ---
Providers Date of admission: 12/10/17 14:36 Expected date of discharge: 12/12/17 Attending physician: Dario Izaguirre Primary care physician: Stated None Hospital Course: Ligia is doing very well day 1. She is involuting, voiding, and she is tolerating her diet. She voices no complaints. Vital signs are stable and afebrile. Heart regular, lungs clear, extremities are without pain. All the questions are answered for her. Abdomen is soft uterus is firm and lochia is reported be light. She is requesting discharge to home today. Discharge instructions were thoroughly reviewed. Prescription for a breast pump and Motrin are provided. She will follow up with me in 6 weeks. She is stable for discharge this time. Patient Condition at Discharge: Good Plan - Discharge Summary New Discharge Prescriptions: New Ibuprofen [Motrin] 600 mg PO Q6HR PRN #30 tab PRN Reason: Pain No Action Pnv No.95/Ferrous Fum/Folic AC [ Multivitamin Tablet] 1 each PO DAILY Albuterol Inhaler [Ventolin Hfa Inhaler] 1 - 2 puff INHALATION RT-Q6H PRN PRN Reason: Shortness Of Breath Discharge Medication List Pnv No.95/Ferrous Fum/Folic AC [ Multivitamin Tablet] 1 each PO DAILY [History] Albuterol Inhaler [Ventolin Hfa Inhaler] 1 - 2 puff INHALATION RT-Q6H PRN [History] Ibuprofen [Motrin] 600 mg PO Q6HR PRN #30 tab 12/12/17 [Rx] Follow up Appointment(s)/Referral(s): Dario Izaguirre DO [Doctor of Osteopathic Medicine] - 1 Week Activity/Diet/Wound Care/Special Instructions: No heavy lifting, limit stairs and driving, and pelvic rest. If any high temperatures, heavy bleeding, or severe pain call my office Discharge Disposition: HOME SELF-CARE
[2017-12-12] MEDS: IBUPROFEN 600 MG TAB PO PRN ×2 (08:13→21:02)
[2017-12-12] MEDS: LACTATED RINGERS 1,000 ML IV SCH (21:57)
[2017-12-13] MEDS: IBUPROFEN 600 MG TAB PO PRN (08:30)
[2017-12-13] MEDS: SENNOSIDES-DOCUSATE SODIUM 1 EACH TAB PO SCH (08:31)
[2017-12-13 11:38] VITALS: BP 145/97; PULSE 110; RESP 18; TEMP 97.9
--- NOTE | 2017-12-13 13:32 | P.DS ---
Providers Date of admission: 12/10/17 14:36 Expected date of discharge: 12/13/17 Attending physician: Dario Izaguirre Primary care physician: Stated None Hospital Course: Receiving did not go home yesterday as her baby was jaundiced and she stated to be with the baby. She'll be discharged home today. Her blood pressures remain in the low 140/90 range, she has had no other significant elevations like she did well she was in labor. We'll plan to have her in the office next week to recheck her blood pressure make sure no other changes. Preeclamptic precautions were provided including return with any severe headache, epigastric pain, or visual changes. She voices no concerns at this time and otherwise her vital signs are stable and afebrile. Heart regular, lungs clear, extremities are without pain. Deep tendon reflexes are 2+. All the questions are answered for her at this time and will plan to see her next week for blood pressure check Patient Condition at Discharge: Good Plan - Discharge Summary New Discharge Prescriptions: New Ibuprofen [Motrin] 600 mg PO Q6HR PRN #30 tab PRN Reason: Pain No Action Pnv No.95/Ferrous Fum/Folic AC [ Multivitamin Tablet] 1 each PO DAILY Albuterol Inhaler [Ventolin Hfa Inhaler] 1 - 2 puff INHALATION RT-Q6H PRN PRN Reason: Shortness Of Breath Discharge Medication List Pnv No.95/Ferrous Fum/Folic AC [ Multivitamin Tablet] 1 each PO DAILY [History] Albuterol Inhaler [Ventolin Hfa Inhaler] 1 - 2 puff INHALATION RT-Q6H PRN [History] Ibuprofen [Motrin] 600 mg PO Q6HR PRN #30 tab 12/12/17 [Rx] Follow up Appointment(s)/Referral(s): Dario Izaguirre DO [Doctor of Osteopathic Medicine] - 1 Week Activity/Diet/Wound Care/Special Instructions: No heavy lifting, limit stairs and driving, and pelvic rest. If any high temperatures, heavy bleeding, or severe pain call my office Discharge Disposition: HOME SELF-CARE
[2017-12-13] MEDS ORDERED: DIPH,PERTUS(ACELL)TETVAC-LF 0.5 ML VIAL IM ONE (15:23)
== END 2017-12-13 15:45 | disposition home or self-care (01) | DRG 807 ==
LOC: 4FBP 14:36
PROVIDERS: ADMIT Obstetrics & Gynecology; ATTEND Obstetrics & Gynecology
PROC: 10907ZC Drainage of Amniotic Fluid, Therapeutic from Products of Conception, Via Natural or Artificial Opening (ICD-10-PCS; principal; 2017-12-10)
PROC: 00HU33Z Insertion of Infusion Device into Spinal Canal, Percutaneous Approach (ICD-10-PCS; principal; 2017-12-10)
PROC: 0HQ9XZZ Repair Perineum Skin, External Approach (ICD-10-PCS; principal; 2017-12-10)
PROC: 10E0XZZ Delivery of Products of Conception, External Approach (ICD-10-PCS; principal; 2017-12-10)
PROC: 3E033VJ Introduction of Other Hormone into Peripheral Vein, Percutaneous Approach (ICD-10-PCS; principal; 2017-12-10)
PROC: 3E0R3NZ Introduction of Analgesics, Hypnotics, Sedatives into Spinal Canal, Percutaneous Approach (ICD-10-PCS; principal; 2017-12-10)
DX: O13.4 Gestational [pregnancy-induced] hypertension without significant proteinuria, complicating childbirth (principal); Z37.0 Single live birth; O99.52 Diseases of the respiratory system complicating childbirth; J45.909 Unspecified asthma, uncomplicated; Z3A.37 37 weeks gestation of pregnancy; Z79.899 Other long term (current) drug therapy; O69.81X0 Labor and delivery complicated by cord around neck, without compression, not applicable or unspecified; O99.824 Streptococcus B carrier state complicating childbirth; O70.9 Perineal laceration during delivery, unspecified
CPT/HCPCS: 81001; 82565; 83615; 84450; 84460; 84520; 84550; 85025; 86850; 86900; 86901; 88307; 90715

== ENCOUNTER 2018-09-14 18:20 | Emergency (ER) | payer OTHER ==
[2018-09-14] MEDS ORDERED: DEXAMETHASONE 4 MG TAB PO STA (19:34)
[2018-09-14] MEDS ORDERED: AMOXICILLIN 500 MG CAP PO STA (19:34)
--- NOTE | 2018-09-14 19:36 | ED ---
ENT HPI - General Chief complaint: ENT Stated complaint: Sore Throat Time Seen by Provider: 09/14/18 18:37 Source: patient Mode of arrival: ambulatory Limitations: no limitations - History of Present Illness Initial comments: 22-year-old here present for 1 day of sore throat, patient states that she has had sore throat for 1 day she states is painful and swelling. Patient denies any difficulty swallowing or breathing. Patient denies any nausea vomiting abdominal pain she denies or ALLERGIES to penicillins. Patient denies any rash patient denies any recent trauma. Remaining review of systems negative upon arrival patient appears well there is no signs of acute distress. - Related Data Home Medications Medication Instructions Recorded Confirmed Pnv No.95/Ferrous Fum/Folic AC 1 each PO DAILY 10/26/17 12/10/17 [ Multivitamin Tablet] Albuterol Inhaler [Ventolin Hfa 1 - 2 puff INHALATION RT-Q6H PRN 11/26/17 12/10/17 Inhaler] Previous Rx's Medication Instructions Recorded Ibuprofen [Motrin] 600 mg PO Q6HR PRN #30 tab 12/12/17 Amoxicillin 500 mg PO Q12HR 10 Days #20 cap 09/14/18 Allergies Allergy/AdvReac Type Severity Reaction Status Date / Time bee venom protein (honey bee) Allergy Swelling Verified 09/14/18 18:36 orange juice [[place]] Allergy Anaphylaxis Verified 09/14/18 18:36 Review of Systems ROS Statement: Those systems with pertinent positive or pertinent negative responses have been documented in the HPI. ROS Other: All systems not noted in ROS Statement are negative. Past Medical History Past Medical History: Asthma History of Any Multi-Drug Resistant Organisms: None Reported Past Surgical History: Appendectomy Past Anesthesia/Blood Transfusion Reactions: No Reported Reaction Past Psychological History: No Psychological Hx Reported Smoking Status: Never smoker Past Alcohol Use History: None Reported Past Drug Use History: None Reported - Past Family History Mother History Unknown: Yes Family Medical History: Hypertension General Exam - General Exam Comments Initial Comments: General: The patient is awake and alert, in no distress, and does not appear acutely ill. Eye: +3 mm pupils are equal, round and reactive to light, extra-ocular movements are intact. No nystagmus. There is normal conjunctiva bilaterally. No signs of icterus. No photophobia Ears, nose, mouth and throat: There are moist mucous membranes and no oral lesions. Oropharynx is erythematous there is tonsillar enlargement and exudates. Uvula midline. Tympanic membranes are not erythematous or is no effusions bulging or retraction. No tenderness to palpation of the mastoid. No anterior cervical lymphadenopathy. Rhinorrhea, clear and bilateral nares. No tripoding, no drooling. Neck: The neck is supple, there is no tenderness or JVD. No nuchal rigidity Cardiovascular: There is a regular rate and rhythm. No murmur, rub or gallop is appreciated. Respiratory: Lungs are clear to auscultation, respirations are non-labored, breath sounds are equal. No wheezes, stridor, rales, or rhonchi. No retractions or abdominal breathing. Gastrointestinal: Soft, non-distended, non-tender abdomen without masses or organomegaly noted. There is no rebound or guarding present. Bowel sounds are unremarkable. Musculoskeletal: Normal ROM, no tenderness. Strength 5/5. Sensation intact. Radial pulses equal bilaterally 2+. Neurological: A&O x 3. CN II-XII intact, There are no obvious motor or sensory deficits. Coordination appears grossly intact. Speech appears normal, no muffling. Skin: Skin is warm and dry and no rashes or lesions are noted. No extremity edema Psychiatric: Cooperative Limitations: no limitations Course Vital Signs 09/14/18 09/14/18 18:33 20:27 Temperature 98.6 F 98.1 F Pulse Rate 110 H 94 Respiratory 20 16 Rate Blood Pressure 120/87 130/84 O2 Sat by Pulse 100 100 Oximetry Medical Decision Making - Medical Decision Making 22-year-old female presenting for sore throat times one day. Patient was given 8 mg of Decadron by mouth for symptomatically relief. Oropharynx was concerning for strep pharyngitis. Patient will be treated amoxicillin given high suspicion. Return parameters were discussed at length. At this time I do not see any complicating process seen. Uvula is midline. No tripoding or muffled voice. Patient is agreeable care plan as well as discharge. Patient was discharged. Will agreed with instruction to follow up as well as return parameters. Disposition Clinical Impression: Pharyngitis Disposition: HOME SELF-CARE Condition: Good Instructions (If sedation given, give patient instructions): Pharyngitis (ED), Strep Throat (ED) Additional Instructions: Please use medication as discussed. Please follow-up with family doctor in the next 2 days. Please return to emergency room if the symptoms increase or worsen or for any other concerns, difficulty breathing, difficulty swallowing. Prescriptions: Amoxicillin 500 mg PO Q12HR 10 Days #20 cap Is patient prescribed a controlled substance at d/c from ED?: No Referrals: None,Stated [Primary Care Provider] - 1-2 days Time of Disposition: 19:34
[2018-09-14 20:29] VITALS: BP 130/84; PULSE 94; RESP 16; TEMP 98.1
== END 2018-09-14 20:26 | disposition home or self-care (01) ==
LOC: EC 18:20
DX: J02.9 Acute pharyngitis, unspecified (principal); J35.1 Hypertrophy of tonsils; J45.909 Unspecified asthma, uncomplicated; Z91.018 Allergy to other foods
CPT/HCPCS: 99282; J8540

== ENCOUNTER → 2019-01-29 | Outpatient (CLI) | payer OTHER ==
--- NOTE | 2019-01-29 16:24 | XR ---
EXAMINATION TYPE: XR hand complete RT DATE OF EXAM: 01/29/2019 CLINICAL HISTORY: Crushing injury today with pain worse over second and third digits. TECHNIQUE: Frontal, lateral and oblique images of the right hand are obtained. COMPARISON: Right hand x-ray December 27, 2011. FINDINGS: There is no acute fracture/dislocation evident in the right hand with particular attention to second and third digits. The joint spaces in the right hand appear within normal limits. The ove rlying soft tissue appears unremarkable. Punctate densities in the right fourth nail are incidentally noted. IMPRESSION: There is no acute fracture or dislocation in the right hand.
== END | disposition home or self-care (01) ==
LOC: RADXRMAIN 16:05
PROVIDERS: ATTEND Emergency Medicine
DX: S60.221A Contusion of right hand, initial encounter (principal)

== ENCOUNTER 2019-06-06 19:52 | Emergency (ER) | payer OTHER ==
--- NOTE | 2019-06-06 20:29 | ED ---
General Adult HPI - General Chief complaint: Upper Respiratory Infection Stated complaint: Cough Time Seen by Provider: 06/06/19 20:09 Source: patient, RN notes reviewed, old records reviewed Mode of arrival: ambulatory Limitations: no limitations - History of Present Illness Initial comments: 23-year-old female patient with past month history of asthma presents to ED for evaluation of cough. Patient reports that she has had a productive cough for the last 2 days. Denies any chest pain. Reports that she has some shortness of breath only after a big fits of coughing. Denies any shortness of breath at baseline. Patient denies any recent travel, exposure known coronavirus patient's, headache, fever, use oral contraceptives, blood disorders, recent surgery, history of cancer. Denies any other complaints. Systemic: Pt denies fatigue, fever/chills, rash. Pt denies weakness, night sweats, weight loss. Neuro: Pt denies headache, visual disturbances, syncope or pre-syncope. HEENT: Pt denies ocular discharge or irritation, otalgia, rhinorrhea, pharyngitis or notable lymphadenopathy. Cardiopulmonary: Pt denies chest pain, heart palpitations, dyspnea on exertion. Abdominal/GI: Pt denies abdominal pain, n/v/d. : Pt denies dysuria, burning w/ urination, frequency/urgency. Denies new onset urinary or bowel incontinence. MSK: Pt denies myalgia, loss of strength or function in extremities. Neuro: Pt denies new onset weakness, paresthesias. - Related Data Home Medications Medication Instructions Recorded Confirmed Pnv No.95/Ferrous Fum/Folic AC 1 each PO DAILY 10/26/17 12/10/17 [ Multivitamin Tablet] Albuterol Inhaler [Ventolin Hfa 1 - 2 puff INHALATION RT-Q6H PRN 11/26/17 12/10/17 Inhaler] Previous Rx's Medication Instructions Recorded Ibuprofen [Motrin] 600 mg PO Q6HR PRN #30 tab 12/12/17 Amoxicillin 500 mg PO Q12HR 10 Days #20 cap 09/14/18 Azithromycin [Zithromax Z-pack] 0 mg PO DIRECTED #6 tab 06/06/19 Allergies Allergy/AdvReac Type Severity Reaction Status Date / Time bee venom protein (honey bee) Allergy Swelling Verified 06/06/19 19:56 orange juice [[place]] Allergy Anaphylaxis Verified 06/06/19 19:56 Review of Systems ROS Statement: Those systems with pertinent positive or pertinent negative responses have been documented in the HPI. ROS Other: All systems not noted in ROS Statement are negative. Past Medical History Past Medical History: Asthma History of Any Multi-Drug Resistant Organisms: None Reported Past Surgical History: Appendectomy Past Anesthesia/Blood Transfusion Reactions: No Reported Reaction Past Psychological History: No Psychological Hx Reported Smoking Status: Never smoker Past Alcohol Use History: None Reported Past Drug Use History: None Reported - Past Family History Mother History Unknown: Yes Family Medical History: Hypertension General Exam - General Exam Comments Initial Comments: Constitutional: NAD, AOX3, Pt has pleasant affect. HEENT: NC/AT, trachea midline, neck supple, no lymphadenopathy. Posterior pharynx non erythematous, without exudates. External ears appear normal, without discharge. Mucous membranes moist. Eyes PERRLA, EOM intact. There is no scleral icterus. No pallor noted. Cardiopulmonary: RRR, no murmurs, rubs or gallops, no JVD noted. Lungs CTAB in anterior and posterior barnhart. No peripheral edema. Abdominal exam: Abdomen soft and non-distended. Abdomen non-tender to palpation in all 4 quadrants. Bowel sounds active in LLQ. No hepatosplenomegaly. No ecchymosis Neuro: CN II-XII grossly intact. No nuchal rigidity. No raccon eyes, no nath sign, no hemotympanum. No cervical spinal tenderness. MSK: No posterior calf tenderness bilaterally, homans sign negative bilaterally. Posterior tibialis and radial pulse +2 bilaterally. Sensation intact in upper and lower extremities. Full active ROM in upper and lower extremities, 5/5 stregnth. Limitations: no limitations Course Vital Signs 06/06/19 06/06/19 19:54 20:48 Temperature 98.0 F 98.7 F Pulse Rate 122 H 94 Respiratory 20 18 Rate Blood Pressure 121/81 122/88 O2 Sat by Pulse 97 100 Oximetry Medical Decision Making - Medical Decision Making 23-year-old female patient with past month history of asthma presents to ED for evaluation of cough. Patient reports that she has had a productive cough for the last 2 days. Denies any chest pain. Reports that she has some shortness of breath only after a big fits of coughing. Denies any shortness of breath at baseline. Patient denies any recent travel, exposure known coronavirus patient's, headache, fever, use oral contraceptives, blood disorders, recent surgery, history of cancer. Denies any other complaints. Pt denies any chance of being . Patient vital signs initially displayed mild tachycardia, after resting VS stable time of discharge. Physical exam did not suspect acute pathology. Lungs are clear. Patient in no acute respiratory distress, respirations are nonlabored. Chest x-ray displayed posterior inferior left upper lobe acute pneumatic consolidation. Possible additional bilateral infrahilar infiltrates emesis or atelectasis. Patient be treated for bacterial pneumonia with azithromycin and 1 g Rocephin administered emergency department. Patient advised that it is possible this is also coronavirus. Patient was given very strict return precautions. Patient will follow up with primary care provider and self quarantine for the next 14 days. Case discussed with Dr. Jarrett. Disposition Clinical Impression: Cough, Community acquired pneumonia Disposition: HOME SELF-CARE Condition: Stable Instructions (If sedation given, give patient instructions): Community Acquired Pneumonia (ED) Additional Instructions: Take antibiotics as directed. Follow up with primary care provider tomorrow. Self quarantine for the next 14 days. Return immediately to ER if condition worsens in any way. Prescriptions: Azithromycin [Zithromax Z-pack] 0 mg PO DIRECTED #6 tab Is patient prescribed a controlled substance at d/c from ED?: No Referrals: None,Stated [Primary Care Provider] - 1-2 days [facility] [NON-STAFF] - 1-2 days Kris Carver MD [REFERRING] - 1-2 days
--- NOTE | 2019-06-06 20:48 | XR ---
EXAMINATION TYPE: XR chest 2V DATE OF EXAM: 06/06/2019 COMPARISON: Prior chest x-ray October 02, 2012. HISTORY: History of asthma with cough. TECHNIQUE: Frontal and lateral views of the chest are obtained. FINDINGS: There is some multifocal increased opacity particularly bilateral infrahilar level and lef t upper lung level confirmed best on lateral view silhouetting portion of the major fissure. The car diac silhouette size is within normal limits. The osseous structures are intact. IMPRESSION: Posterior inferior left upper lobe acute pneumonic consolidation. Possible additional bi lateral infrahilar acute infiltrates and/or atelectasis. Consider progress two view chest x-ray .
[2019-06-06 20:49] VITALS: BP 122/88; PULSE 94; RESP 18; TEMP 98.7
[2019-06-06] MEDS ORDERED: cefTRIAXone 1,000 MG VIAL (IM USE) IM STA (21:10)
[2019-06-06] MEDS ORDERED: AZITHROMYCIN 500 MG TAB PO STA (21:11)
== END 2019-06-06 21:33 | disposition home or self-care (01) ==
LOC: EC 19:52
DX: J18.9 Pneumonia, unspecified organism (principal); R00.0 Tachycardia, unspecified; J45.909 Unspecified asthma, uncomplicated; Z91.018 Allergy to other foods; Z91.030 Bee allergy status; Z79.899 Other long term (current) drug therapy; Z82.49 Family history of ischemic heart disease and other diseases of the circulatory system
CPT/HCPCS: 71046; 99285; 96372; J0696

== ENCOUNTER 2019-08-24 12:16 | Emergency (ER) | payer BC, OTHER ==
[2019-08-24 12:25] VITALS: BP 125/82; PULSE 99; RESP 16; TEMP 98.1
[2019-08-24] MEDS ORDERED: DIPH,PERTUS(ACELL)TETVAC-LF 0.5 ML VIAL IM ONE (12:40)
--- NOTE | 2019-08-24 12:44 | ED ---
Burn/Smoke HPI - General Chief complaint: Burn/Smoke Inhalation Stated complaint: Burn on hand Time Seen by Provider: 08/24/19 12:28 Source: patient, RN notes reviewed Mode of arrival: ambulatory Limitations: no limitations - History of Present Illness Initial comments: 23-year-old female presents emergency Department chief complaint of burn to her right hand. She states she was cooking (wine with increased abdominal pain and/or hand. She states that there is some blistering noted she states it feels tingly and painful at this time. Patient is unsure when her last tetanus was. Patient states that she has full range of motion of her hand. Patient offers no other complaints no other injuries. - Related Data Home Medications Medication Instructions Recorded Confirmed Albuterol Inhaler (Mhu) [Ventolin 1 - 2 puff INHALATION RT-Q6H PRN 11/26/17 06/09/19 Hfa Inhaler] Azithromycin [Zithromax Z-pack] See Taper PO DAILY 06/09/19 06/09/19 Allergies Allergy/AdvReac Type Severity Reaction Status Date / Time bee venom protein (honey bee) Allergy Swelling Verified 06/09/19 21:55 orange juice [[place]] Allergy Anaphylaxis Verified 06/09/19 21:55 Review of Systems ROS Statement: Those systems with pertinent positive or pertinent negative responses have been documented in the HPI. ROS Other: All systems not noted in ROS Statement are negative. Past Medical History Past Medical History: Asthma History of Any Multi-Drug Resistant Organisms: None Reported Past Surgical History: Appendectomy Past Anesthesia/Blood Transfusion Reactions: No Reported Reaction Past Psychological History: No Psychological Hx Reported Smoking Status: Never smoker Past Alcohol Use History: None Reported Past Drug Use History: None Reported - Past Family History Mother History Unknown: Yes Family Medical History: Hypertension General Exam Limitations: no limitations General appearance: alert, in no apparent distress Head exam: Present: atraumatic, normocephalic, normal inspection Eye exam: Present: normal appearance, PERRL, EOMI. Absent: scleral icterus, conjunctival injection, periorbital swelling ENT exam: Present: normal exam, mucous membranes moist Respiratory exam: Present: normal lung sounds bilaterally. Absent: respiratory distress, wheezes, rales, rhonchi, stridor Cardiovascular Exam: Present: regular rate, normal rhythm, normal heart sounds. Absent: systolic murmur, diastolic murmur, rubs, gallop, clicks Extremities exam: Present: other (Right hand there is an approximate 4 cm x 3 cm of erythema, burn noted, there is some central blistering skin is intact. Does not involve any digits no circumferential prado) Course Vital Signs 08/24/19 12:22 Temperature 98.1 F Pulse Rate 99 Respiratory 16 Rate Blood Pressure 125/82 O2 Sat by Pulse 98 Oximetry Medical Decision Making - Medical Decision Making Patient has first-degree burn with second-degree burn in the middle, patient will have cream applied tetanus is updated. Patient will follow-up with PCP and return for any worsening symptoms. Patient agrees to plan. Disposition Clinical Impression: Burn of hand, right, second degree Disposition: HOME SELF-CARE Condition: Stable Instructions (If sedation given, give patient instructions): Second Degree Burn (ED) Additional Instructions: Please return to the Emergency Department if symptoms worsen or any other concerns. Is patient prescribed a controlled substance at d/c from ED?: No Referrals: None,Stated [Primary Care Provider] - 1-2 days Time of Disposition: 12:44
== END 2019-08-24 12:57 | disposition home or self-care (01) ==
LOC: EC 12:16
DX: T23.201A Burn of second degree of right hand, unspecified site, initial encounter (principal); J45.909 Unspecified asthma, uncomplicated; Z79.51 Long term (current) use of inhaled steroids; Z23 Encounter for immunization; Z91.030 Bee allergy status; Z91.018 Allergy to other foods; X08.8XXA Exposure to other specified smoke, fire and flames, initial encounter; Y93.G3 Activity, cooking and baking; Y92.009 Unspecified place in unspecified non-institutional (private) residence as the place of occurrence of the external cause
CPT/HCPCS: 90471; 90715; 99283

== ENCOUNTER 2019-08-28 19:55 | Emergency (ER) | payer BC, OTHER ==
[2019-08-28 20:03] VITALS: BP 115/76; PULSE 97; RESP 20; TEMP 98.3
[2019-08-28] MEDS ORDERED: IBUPROFEN 600 MG STARTER PACK 4 TAB BTL PO STA (20:42)
[2019-08-28] MEDS ORDERED: CEPHALEXIN 500MG STARTER PACK 4 CAP BTL PO STA (20:42)
--- NOTE | 2019-08-28 20:44 | ED ---
Skin/Abscess/FB HPI - General Chief complaint: Skin/Abscess/Foreign Body Stated complaint: recheck, burn on hand Time Seen by Provider: 08/28/19 20:38 Source: patient, family Mode of arrival: ambulatory Limitations: no limitations - History of Present Illness Initial comments: 23-year-old female patient presents to the emergency department today for eval uation of a burn to her right hand. Patient states on Sunday her child accidentally spilled hot grease on her hand when pulling a pain from the stove. States she was seen and evaluated that day. Patient states that over the last several days the wound has become more red. States she is still having significant pain to the area. She has noticed swelling in the hand as well. She denies any fever or chills with this. Patient denies any chest pain, shortness of breath, dizziness, weakness, abdominal pain, nausea, vomiting, or difficulties with bowel movements or urination. - Related Data Home Medications Medication Instructions Recorded Confirmed Albuterol Inhaler (Mhu) [Ventolin 1 - 2 puff INHALATION RT-Q6H PRN 11/26/17 06/09/19 Hfa Inhaler] Azithromycin [Zithromax Z-pack] See Taper PO DAILY 06/09/19 06/09/19 Previous Rx's Medication Instructions Recorded Cephalexin [Keflex] 500 mg PO Q6H #28 cap 08/28/19 Ibuprofen [Motrin] 600 mg PO Q8HR PRN #30 tab 08/28/19 Allergies Allergy/AdvReac Type Severity Reaction Status Date / Time bee venom protein (honey bee) Allergy Swelling Verified 08/28/19 20:02 orange juice [[place]] Allergy Anaphylaxis Verified 08/28/19 20:02 Review of Systems ROS Statement: Those systems with pertinent positive or pertinent negative responses have been documented in the HPI. ROS Other: All systems not noted in ROS Statement are negative. Past Medical History Past Medical History: Asthma History of Any Multi-Drug Resistant Organisms: None Reported Past Surgical History: Appendectomy Past Anesthesia/Blood Transfusion Reactions: No Reported Reaction Past Psychological History: No Psychological Hx Reported Smoking Status: Never smoker Past Alcohol Use History: None Reported Past Drug Use History: None Reported - Past Family History Mother History Unknown: Yes Family Medical History: Hypertension General Exam Limitations: no limitations General appearance: alert, in no apparent distress, other (This is a well- developed, well-nourished adult female patient in no acute distress. Vital signs upon presentation are temperature 98.3F, pulse 97, respirations 20, blood pressure 115/76, pulse ox 98% on room air.) Respiratory exam: Present: normal lung sounds bilaterally. Absent: respiratory distress, wheezes, rales, rhonchi, stridor Cardiovascular Exam: Present: regular rate, normal rhythm, normal heart sounds. Absent: systolic murmur, diastolic murmur, rubs, gallop, clicks Extremities exam: Present: full ROM, normal capillary refill, other (There is burn to the dorsal aspect of the right hand, 2nd degree, skin is intact. There is mild erythema. No swelling. This toes less than 1% of her total body surface area. There is no drainage from the wound. Skin is otherwise pink, warm, dry. Cap refills less than 3 seconds. Radial pulses 2+ and equal bilaterally.). Absent: normal inspection, tenderness, pedal edema, joint swelling, calf tenderness Neurological exam: Present: alert, oriented X3, CN II-XII intact Psychiatric exam: Present: normal affect, normal mood Skin exam: Present: warm, dry, intact, normal color. Absent: rash Course Vital Signs 08/28/19 19:58 Temperature 98.3 F Pulse Rate 97 Respiratory 20 Rate Blood Pressure 115/76 O2 Sat by Pulse 98 Oximetry Medical Decision Making - Medical Decision Making 23-year-old female patient presented to the emergency department for a reevaluation of a burn to the right hand. Physical examination did reveal second degree burn over the dorsal aspect of the right hand totaling less than 1% of her total body surface area. There is mild surrounding erythema. No drainage. Patient will be given prescription for Keflex to prevent infection. She is given prescription for ibuprofen for pain control. She is instructed to follow-up with her primary care physician for recheck in 1-2 days. Return parameters were discussed in detail. She verbalizes understanding and agrees with this plan. Disposition Clinical Impression: Second degree burn of right hand Disposition: HOME SELF-CARE Condition: Good Instructions (If sedation given, give patient instructions): Second Degree Burn (ED) Additional Instructions: Keep wound clean and dry. Complete antibiotic prescription in full. Take Motrin as needed for pain control. Try to keep hand elevated as much as possible. Follow up with your primary care physician for recheck in 1-2 days. Return to the emergency department immediately for any new, worsening, or con cerning symptoms. Prescriptions: Cephalexin [Keflex] 500 mg PO Q6H #28 cap Ibuprofen [Motrin] 600 mg PO Q8HR PRN #30 tab PRN Reason: Pain Is patient prescribed a controlled substance at d/c from ED?: No Referrals: None,Stated [Primary Care Provider] - 1-2 days Time of Disposition: 20:44
== END 2019-08-28 20:54 | disposition home or self-care (01) ==
LOC: EC 19:55
DX: T23.201D Burn of second degree of right hand, unspecified site, subsequent encounter (principal); T31.0 Burns involving less than 10% of body surface; J45.909 Unspecified asthma, uncomplicated; Z91.030 Bee allergy status; Z91.018 Allergy to other foods; X10.2XXD Contact with fats and cooking oils, subsequent encounter; Y93.G3 Activity, cooking and baking; Y92.000 Kitchen of unspecified non-institutional (private) residence as the place of occurrence of the external cause
CPT/HCPCS: 99283

== ENCOUNTER 2019-11-22 19:03 | Emergency (ER) | payer BC, OTHER ==
[2019-11-22 19:08] VITALS: BP 131/88; PULSE 83; RESP 16; TEMP 98.3
--- NOTE | 2019-11-22 19:48 | XR ---
EXAMINATION TYPE: XR knee complete LT DATE OF EXAM: 11/22/2019 COMPARISON: NONE HISTORY: Knee pain TECHNIQUE: 3 views FINDINGS: I see no fracture nor dislocation. Joint spaces are normal. There is no sign of knee joint effusion. IMPRESSION: Negative left knee exam.
--- NOTE | 2019-11-22 19:55 | ED ---
Fall HPI - General Chief Complaint: Fall Stated Complaint: Fall-Knee Injury Time Seen by Provider: 11/22/19 19:08 Source: patient Mode of arrival: wheelchair - History of Present Illness Initial Comments: 24-year-old female presenting today for chief complaint of left anterior knee pain. Patient states that she was walking in [facility] when she slipped on a spilled smoothie. Patient states that she fell onto her left anterior knee, denies head neck abdomen or back injuries.. Denies hip or ankle pain. Denies numbness, or weaknes of the extremity. Denies dislocation. patient can weight bear with pain. patient denies inability to extend leg. Patietn appears nontoxinc on arrival. - Related Data Home Medications Medication Instructions Recorded Confirmed Albuterol Inhaler (Mhu) [Ventolin 1 - 2 puff INHALATION RT-Q6H PRN 11/26/17 06/09/19 Hfa Inhaler] Azithromycin [Zithromax Z-pack] See Taper PO DAILY 06/09/19 06/09/19 Previous Rx's Medication Instructions Recorded Cephalexin [Keflex] 500 mg PO Q6H #28 cap 08/28/19 Ibuprofen [Motrin] 600 mg PO Q8HR PRN #30 tab 08/28/19 Allergies Allergy/AdvReac Type Severity Reaction Status Date / Time bee venom protein (honey bee) Allergy Swelling Verified 11/22/19 19:08 orange juice [[place]] Allergy Anaphylaxis Verified 11/22/19 19:08 Review of Systems ROS Statement: Those systems with pertinent positive or pertinent negative responses have been documented in the HPI. ROS Other: All systems not noted in ROS Statement are negative. Past Medical History Past Medical History: Asthma History of Any Multi-Drug Resistant Organisms: None Reported Past Surgical History: Appendectomy Past Anesthesia/Blood Transfusion Reactions: No Reported Reaction Past Psychological History: No Psychological Hx Reported Smoking Status: Never smoker Past Alcohol Use History: None Reported Past Drug Use History: None Reported - Past Family History Mother History Unknown: Yes Family Medical History: Hypertension General Exam - General Exam Comments Initial Comments: General: The patient is awake and alert, in no distress Eye: Pupils are equal, round and reactive to light, extra-ocular movements are intact. No nystagmus. There is normal conjunctiva bilaterally. No signs of icterus. Musculoskeletal: left knee has some mmild anterio knee swelling with pain to palpation, patella appears in anatomical position. No posterior pain. Normal ROM of the knees b/l with pain wht ROM of the left knee. Strength 5/5. Sensation intact proximal and distal to injury site. DP pulses equal bilaterally 2+. Neurological: A&O x 3. CN II-XII intact grossly, There are no obvious motor or sensory deficits. Coordination appears grossly intact. Speech is normal. Skin: Skin is warm and dry and no rashes or lesions are noted. Psychiatric: Cooperative, appropriate mood & affect, normal judgment. Limitations: no limitations Course Vital Signs 11/22/19 19:05 Temperature 98.3 F Pulse Rate 83 Respiratory 16 Rate Blood Pressure 131/88 O2 Sat by Pulse 100 Oximetry Medical Decision Making - Medical Decision Making 24yo female presenting for left anterior knee pain after fall. No dislocation hx. Patient knee mildly swollen. XR (-) can weight bear and extend knee. Patient neurovascularly intact no additional complaints patient appears well and nontoxic I be discharged with [place] treatment instruction and primary care follow-up Disposition Clinical Impression: Left anterior knee pain, Fall Disposition: HOME SELF-CARE Condition: Good Instructions (If sedation given, give patient instructions): Knee Pain (ED), Swollen Joint (ED) Additional Instructions: Please use medication as discussed. Please follow-up with family doctor in the next 2 days, rest ice compress and elevate the knee. Please return to emergency room if the symptoms increase or worsen or for any other concerns. Is patient prescribed a controlled substance at d/c from ED?: No Referrals: None,Stated [Primary Care Provider] - 1-2 days Time of Disposition: 19:55
== END 2019-11-22 20:02 | disposition home or self-care (01) ==
LOC: EC 19:03
DX: M25.562 Pain in left knee (principal); M79.89 Other specified soft tissue disorders; J45.909 Unspecified asthma, uncomplicated; Z91.030 Bee allergy status; Z91.02 Food additives allergy status; W01.0XXA Fall on same level from slipping, tripping and stumbling without subsequent striking against object, initial encounter; Y93.01 Activity, walking, marching and hiking; Y92.59 Other trade areas as the place of occurrence of the external cause
CPT/HCPCS: 99283

== ENCOUNTER 2020-01-08 14:52 | Emergency (ER) | payer BC, OTHER ==
[2020-01-08 14:59] VITALS: RESP 16; TEMP 97.1
[2020-01-08] MEDS ORDERED: KETOROLAC 15 MG/ML 1 ML VIAL IM STA ×2 (15:18)
--- NOTE | 2020-01-08 15:26 | ED ---
Extremity Problem HPI - General Source: patient Mode of arrival: ambulatory Limitations: no limitations <Alex Mcgee - Last Filed: 01/08/20 22:38> <Paula Trinidad - Last Filed: 01/11/20 21:52> - General Chief complaint: Extremity Problem,Nontraumatic Stated complaint: Shoulder injury Time Seen by Provider: 01/08/20 15:04 - History of Present Illness Initial comments: Patient is a 24-year-old female presenting to the emergency department with chief complaint of left shoulder pain. Patient reported this incident occurred about 3 hours prior to arrival when she was carrying a washing machine with one of her friends. Patient reports the machine pulled on her left hand and now she has a burning like sensation in the left shoulder, particularly her over the anterior deltoid region with mild radiation to the elbow. She does report limited range of motion due to pain. Denies any numbness or tingling. States she otherwise has full strength. Denies any chest pain or shortness of breath. (Alex Mcgee) - Related Data Home Medications Medication Instructions Recorded Confirmed Albuterol Inhaler (Mhu) [Ventolin 1 - 2 puff INHALATION RT-Q6H PRN 11/26/17 06/09/19 Hfa Inhaler] Azithromycin [Zithromax Z-pack (6 See Taper PO DAILY 06/09/19 06/09/19 tabs)] Previous Rx's Medication Instructions Recorded Cephalexin [Keflex] 500 mg PO Q6H #28 cap 08/28/19 Ibuprofen [Motrin] 600 mg PO Q8HR PRN #30 tab 08/28/19 Allergies Allergy/AdvReac Type Severity Reaction Status Date / Time bee venom protein (honey bee) Allergy Swelling Verified 11/22/19 19:08 orange juice [[place]] Allergy Anaphylaxis Verified 11/22/19 19:08 Review of Systems ROS Other: All systems not noted in ROS Statement are negative. <Alex Mcgee - Last Filed: 01/08/20 22:38> ROS Other: All systems not noted in ROS Statement are negative. <Paula Trinidad - Last Filed: 01/11/20 21:52> ROS Statement: Those systems with pertinent positive or pertinent negative responses have been documented in the HPI. Past Medical History Past Medical History: Asthma History of Any Multi-Drug Resistant Organisms: None Reported Past Surgical History: Appendectomy Past Anesthesia/Blood Transfusion Reactions: No Reported Reaction Past Psychological History: No Psychological Hx Reported Smoking Status: Never smoker Past Alcohol Use History: None Reported Past Drug Use History: None Reported - Past Family History Mother History Unknown: Yes Family Medical History: Hypertension <Alex Mcgee - Last Filed: 01/08/20 22:38> General Exam Limitations: no limitations General appearance: alert, in no apparent distress Head exam: Present: atraumatic, normocephalic, normal inspection Eye exam: Present: normal appearance, PERRL, EOMI Pupils: Present: normal accommodation ENT exam: Present: normal exam, normal oropharynx, mucous membranes moist, TM's normal bilaterally, normal external ear exam Neck exam: Present: normal inspection, full ROM. Absent: tenderness, meningismus Respiratory exam: Present: normal lung sounds bilaterally. Absent: respiratory distress, wheezes, rales Cardiovascular Exam: Present: regular rate, normal rhythm, normal heart sounds Extremities exam: Present: normal inspection, full ROM (Full passive range of motion the left shoulder. Slight limitation slight decreased active range of motion.), tenderness (Anterior deltoid tenderness.), normal capillary refill, other (Sensation intact in the left upper extremity. +2 ulnar a pulse of bilaterally.). Absent: pedal edema, joint swelling, calf tenderness Back exam: Present: normal inspection, full ROM. Absent: tenderness, CVA tenderness (R), CVA tenderness (L), muscle spasm, paraspinal tenderness, vertebral tenderness Neurological exam: Present: alert, oriented X3, normal gait Psychiatric exam: Present: normal affect, normal mood Skin exam: Present: warm, dry, intact, normal color <Alex Mcgee - Last Filed: 01/08/20 22:38> Course Vital Signs 01/08/20 01/08/20 14:53 16:40 Temperature 97.1 F L Pulse Rate 92 89 Respiratory 16 16 Rate Blood Pressure 114/73 120/67 O2 Sat by Pulse 98 99 Oximetry Medical Decision Making <Alex Mcgee - Last Filed: 01/08/20 22:38> <Paula Trinidad - Last Filed: 01/11/20 21:52> - Medical Decision Making Patient is a 24-year-old female presenting to the emergency department with chief complaint of left shoulder pain. On physical examination, patient is neurovascularly intact in the left upper extremity. Some tenderness over the anterior deltoid. Positive empty can test but negative Barraza. X-rays unremarkable. The suspected injury to the rotator cuff. Patient advised to follow with outreach specialist. She was advised to alternate between Tylenol and Motrin for pain control. She was given Toradol in the ED. On reevaluation, patient reports improvement in symptoms. Strict return parameters were thoroughly discussed with patient was understanding and agreeable. Case discussed with physician. (Alex Mcgee) I was available for consultation in the emergency department. The history and physical exam were done by the midlevel provider. I was consulted for this patients care. I reviewed the case with the midlevel provider and based on their presentation of the patient, I agree with the assessment, medical decision making and plan of care as documented. Chart was dictated using [employer] dictation software. Attempts were made to correct any dictation errors however some typographical errors may persist. Patient was seen during a national state of emergency due to the Covid-19 pandemic. (Paula Trinidad) Disposition Is patient prescribed a controlled substance at d/c from ED?: No Time of Disposition: 16:20 <Alex Mcgee - Last Filed: 01/08/20 22:38> <Paula Trinidad - Last Filed: 01/11/20 21:52> Clinical Impression: Left shoulder strain, Rotator cuff injury Disposition: HOME SELF-CARE Condition: Stable Instructions (If sedation given, give patient instructions): Rotator Cuff Injury (ED), Rotator Cuff Tendinitis (ED) Additional Instructions: Follow-up with an orthopedic doctor. Alternate between Tylenol and Motrin for pain control. Return to emergency department if symptoms worsen. Referrals: None,Stated [Primary Care Provider] - 1-2 days Ab Warren, DO [Medical Doctor] - 1-2 days
--- NOTE | 2020-01-08 16:15 | XR ---
EXAMINATION TYPE: XR shoulder complete LT DATE OF EXAM: 01/08/2020 Comparison: None Clinical History: 24-year-old female left shoulder pain after lifting injury Findings: AC joint appears intact. Subacromial space is preserved. No tendinous or bursal calcifications. No ac [place] fracture, subluxation, dislocation seen. Visualized left hemithorax is clear. Impression: No acute osseous abnormality seen.
[2020-01-08 16:42] VITALS: BP 120/67; PULSE 89
== END 2020-01-08 16:40 | disposition home or self-care (01) ==
LOC: EC 14:52
DX: S46.912A Strain of unspecified muscle, fascia and tendon at shoulder and upper arm level, left arm, initial encounter (principal); S46.002A Unspecified injury of muscle(s) and tendon(s) of the rotator cuff of left shoulder, initial encounter; J45.909 Unspecified asthma, uncomplicated; Z91.030 Bee allergy status; Z91.018 Allergy to other foods; X58.XXXA Exposure to other specified factors, initial encounter
CPT/HCPCS: 73030; 99283; 96372; J1885

== ENCOUNTER 2020-01-16 22:19 | Emergency (ER) | payer BC, OTHER ==
[2020-01-16 22:33] VITALS: BP 142/87; PULSE 94; RESP 20; TEMP 98.3
--- NOTE | 2020-01-16 23:04 | ED ---
Female Urogenital HPI - General Chief complaint: Urogenital Stated complaint: Peeing Blood Time Seen by Provider: 01/16/20 22:38 Source: patient Mode of arrival: ambulatory Limitations: no limitations - History of Present Illness MD Complaint: dysuria -: hour(s) Location: suprapubic Severity: mild Quality: cramping Consistency: intermittent Improves with: none Worsens with: urination Patient : No Associated Symptoms: dysuria, hematuria - Related Data Home Medications Medication Instructions Recorded Confirmed Albuterol Inhaler (Mhu) [Ventolin 1 - 2 puff INHALATION RT-Q6H PRN 11/26/17 06/09/19 Hfa Inhaler] Azithromycin [Zithromax Z-pack (6 See Taper PO DAILY 06/09/19 06/09/19 tabs)] Previous Rx's Medication Instructions Recorded Cephalexin [Keflex] 500 mg PO Q6H #28 cap 08/28/19 Ibuprofen [Motrin] 600 mg PO Q8HR PRN #30 tab 08/28/19 Phenazopyridine [Pyridium] 100 mg PO TID #6 tablet 01/16/20 Sulfamethox-Tmp 800-160Mg [Bactrim 1 each PO Q12HR #6 tab 01/16/20 Ds] Allergies Allergy/AdvReac Type Severity Reaction Status Date / Time bee venom protein (honey bee) Allergy Swelling Verified 01/16/20 22:33 orange juice [[place]] Allergy Anaphylaxis Verified 01/16/20 22:33 Review of Systems ROS Statement: Those systems with pertinent positive or pertinent negative responses have been documented in the HPI. ROS Other: All systems not noted in ROS Statement are negative. Constitutional: Denies: fever, chills Respiratory: Denies: cough, dyspnea Cardiovascular: Denies: chest pain, palpitations, edema Gastrointestinal: Denies: abdominal pain, nausea, vomiting, diarrhea, constipation Genitourinary: Reports: dysuria, frequency, hematuria. Denies: discharge Musculoskeletal: Denies: back pain Skin: Denies: rash Neurological: Denies: headache, weakness, numbness Past Medical History Past Medical History: Asthma History of Any Multi-Drug Resistant Organisms: None Reported Past Surgical History: Appendectomy Past Anesthesia/Blood Transfusion Reactions: No Reported Reaction Past Psychological History: No Psychological Hx Reported Smoking Status: Never smoker Past Alcohol Use History: None Reported Past Drug Use History: None Reported - Past Family History Mother History Unknown: Yes Family Medical History: Hypertension General Exam Limitations: no limitations General appearance: alert, in no apparent distress Head exam: Present: atraumatic, normocephalic Eye exam: Present: normal appearance. Absent: scleral icterus, conjunctival injection ENT exam: Present: normal oropharynx Respiratory exam: Present: normal lung sounds bilaterally. Absent: respiratory distress, wheezes, rales, rhonchi, stridor Cardiovascular Exam: Present: regular rate, normal rhythm, normal heart sounds. Absent: systolic murmur, diastolic murmur, rubs, gallop GI/Abdominal exam: Present: soft. Absent: distended, tenderness, guarding, rebound, rigid, mass Extremities exam: Present: normal inspection, normal capillary refill. Absent: pedal edema, calf tenderness Back exam: Present: normal inspection. Absent: CVA tenderness (R), CVA tenderness (L) Neurological exam: Present: alert Skin exam: Present: warm, dry, intact, normal color. Absent: rash Course Vital Signs 01/16/20 22:32 Temperature 98.3 F Pulse Rate 94 Respiratory 20 Rate Blood Pressure 142/87 O2 Sat by Pulse 99 Oximetry Medical Decision Making - Lab Data Lab Results 01/16/20 01/16/20 Range/Units 22:56 22:56 Urine Color Yellow Urine Appearance Cloudy H (Clear) Urine pH 7.0 (5.0-8.0) Ur Specific [place] 1.019 (1.001-1.035) Urine Protein 1+ H (Negative) Urine Glucose (UA) Negative (Negative) Urine Ketones Negative (Negative) Urine Blood Large H (Negative) Urine Nitrite Negative (Negative) Urine Bilirubin Negative (Negative) Urine Urobilinogen <2.0 (<2.0) mg/dL Ur Leukocyte Esterase Large H (Negative) Urine RBC >182 H (0-5) /hpf Urine WBC >182 H (0-5) /hpf Ur Squamous Epith Cells 7 H (0-4) /hpf Urine Bacteria Moderate H (None) /hpf Urine Mucus Few H (None) /hpf Urine HCG, Qual Not Detected (Not Detectd) Disposition Clinical Impression: Urinary tract infection Disposition: HOME SELF-CARE Condition: Good Instructions (If sedation given, give patient instructions): Urinary Tract Infection in Children (ED) Prescriptions: Sulfamethox-Tmp 800-160Mg [Bactrim Ds] 1 each PO Q12HR #6 tab Phenazopyridine [Pyridium] 100 mg PO TID #6 tablet Is patient prescribed a controlled substance at d/c from ED?: No Referrals: None,Stated [Primary Care Provider] - 1-2 days
[2020-01-16 23:16] LABS: Appearance,Urine Cloudy (Clear); Bacteria,Urine Moderate /hpf; Bilirubin,Urine Negative (Negative); Blood,Urine Large (Negative); Color,Urine Yellow; Glucose,Urine (UA) Negative (Negative); Ketones,Urine Negative (Negative); Leukocyte Esterase,Urine Large (Negative); Mucus,Urine Few /hpf; Nitrite,Urine Negative (Negative); Protein,Urine 1+ (Negative); RBC,Urine >182 /hpf (0-5); Specific Gravity,Urine 1.019 (1.001-1.035); Squamous Epithelial Cell,Urine 7 /hpf (0-4); Urobilinogen,Urine <2.0 mg/dL (<2.0); WBC,Urine >182 /hpf (0-5)
[2020-01-16] MEDS ORDERED: SULFAMETHOX-TMP 800-160MG 1 EACH TAB PO STA (23:24)
[2020-01-16] MEDS ORDERED: PHENAZOPYRIDINE 100 MG TAB PO STA (23:24)
== END 2020-01-16 23:36 | disposition home or self-care (01) ==
LOC: EC 22:19
DX: N39.0 Urinary tract infection, site not specified (principal); J45.909 Unspecified asthma, uncomplicated; Z91.030 Bee allergy status; Z91.018 Allergy to other foods
CPT/HCPCS: 81001; 81025; 99283

== ENCOUNTER 2020-02-28 19:57 | Emergency (ER) | payer BC, OTHER ==
[2020-02-28 20:04] VITALS: BP 128/87; PULSE 94; RESP 20; TEMP 98.7
--- NOTE | 2020-02-28 20:10 | ED ---
Lower Extremity Injury HPI - General Chief Complaint: Extremity Injury, Lower Stated Complaint: R Foot Pain Time Seen by Provider: 02/28/20 20:04 Source: patient Mode of arrival: ambulatory Limitations: no limitations - History of Present Illness Initial Comments: 24-year-old female presenting today for chief complaint of right heel pain she states she has had pain in her right heel that increases with walking for the past 2 months she denies injury swelling redness she denies noting any lesions. 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 Patient states is on her inner arch along the heel she denies additional complaints patient appears well nontoxic distress denies any calf pain. - Related Data Home Medications Medication Instructions Recorded Confirmed Albuterol Inhaler (Mhu) [Ventolin 1 - 2 puff INHALATION RT-Q6H PRN 11/26/17 06/09/19 Hfa Inhaler] Azithromycin [Zithromax Z-pack (6 See Taper PO DAILY 06/09/19 06/09/19 tabs)] Previous Rx's Medication Instructions Recorded Cephalexin [Keflex] 500 mg PO Q6H #28 cap 08/28/19 Ibuprofen [Motrin] 600 mg PO Q8HR PRN #30 tab 08/28/19 Phenazopyridine [Pyridium] 100 mg PO TID #6 tablet 01/16/20 Sulfamethox-Tmp 800-160Mg [Bactrim 1 each PO Q12HR #6 tab 01/16/20 Ds] Allergies Allergy/AdvReac Type Severity Reaction Status Date / Time bee venom protein (honey bee) Allergy Swelling Verified 02/28/20 20:04 orange juice [[place]] Allergy Anaphylaxis Verified 02/28/20 20:04 Review of Systems ROS Statement: Those systems with pertinent positive or pertinent negative responses have been documented in the HPI. ROS Other: All systems not noted in ROS Statement are negative. Past Medical History Past Medical History: Asthma History of Any Multi-Drug Resistant Organisms: None Reported Past Surgical History: Appendectomy Past Anesthesia/Blood Transfusion Reactions: No Reported Reaction Past Psychological History: No Psychological Hx Reported Smoking Status: Never smoker Past Alcohol Use History: None Reported Past Drug Use History: None Reported - Past Family History Mother History Unknown: Yes Family Medical History: Hypertension General Exam - General Exam Comments Initial Comments: General: The patient is awake and alert, in no distress Eye: Pupils are equal, round and reactive to light, extra-ocular movements are intact. No nystagmus. There is normal conjunctiva bilaterally. No signs of icterus. Ears, nose, mouth and throat: There are moist mucous membranes and no oral lesions. Musculoskeletal: normal foot inspection b/l. no redness/no swelling. Pain along the inner arm, heel to palation of the right foot. Normal ROM, no tenderness. Strength 5/5. Sensation intact. DP pulses equal bilaterally 2+. Neurological: A&O x 3. CN II-XII intact grossly, There are no obvious motor or sensory deficits. Coordination appears grossly intact. Speech is normal. Skin: Skin is warm and dry and no rashes or lesions are noted. Psychiatric: Cooperative, appropriate mood & affect, normal judgment. Limitations: no limitations Course Vital Signs 02/28/20 19:59 Temperature 98.7 F Pulse Rate 94 Respiratory 20 Rate Blood Pressure 128/87 O2 Sat by Pulse 100 Oximetry Medical Decision Making - Medical Decision Making Hx and PE findings felt to be most consistent with plantar fasciitis. rec ommended orthopedic f/u and symptomatic methods of treatment including rest, new shoes/insert that have arch support, icing and taking nsaids. pt agreeable to this care plan and discharge at this time. Dr> Amos agreeable to care plan. Disposition Clinical Impression: Plantar fasciitis, Pain of right heel Disposition: HOME SELF-CARE Condition: Good Instructions (If sedation given, give patient instructions): Plantar Fasciitis (ED) Additional Instructions: Please use medication as discussed. Please follow-up with family doctor in the next 2 days, recommend orthopedic follow-up. Please return to emergency room if the symptoms increase or worsen or for any other concerns. Is patient prescribed a controlled substance at d/c from ED?: No Referrals: None,Stated [Primary Care Provider] - 1-2 days Daryn Lopez MD [STAFF PHYSICIAN] - 1-2 days Time of Disposition: 20:10
== END 2020-02-28 20:15 | disposition home or self-care (01) ==
LOC: EC 19:57
DX: M72.2 Plantar fascial fibromatosis (principal); J45.909 Unspecified asthma, uncomplicated; Z79.51 Long term (current) use of inhaled steroids; Z91.030 Bee allergy status; Z91.018 Allergy to other foods
CPT/HCPCS: 99283

== ENCOUNTER 2020-03-02 20:57 | Emergency (ER) | payer BC, OTHER ==
[2020-03-02 21:07] VITALS: BP 127/85; PULSE 86; RESP 16; TEMP 97.9
[2020-03-02] MEDS ORDERED: KETOROLAC 15 MG/ML 1 ML VIAL IM STA (21:19)
--- NOTE | 2020-03-02 21:25 | ED ---
Extremity Problem HPI - General Chief complaint: Extremity Problem,Nontraumatic Stated complaint: Right Foot Injury-Revisit Time Seen by Provider: 03/02/20 21:16 Source: patient Mode of arrival: ambulatory Limitations: no limitations - History of Present Illness Initial comments: 24-year-old female patient presents to the emergency department today for e valuation of right foot pain. Patient states she's been having this pain daily for the last 3 months. Patient states the pain is in worsening recently to the point where is now shooting up her leg. States the pain worsens when she bears weight on the foot. She was recently diagnosed with plantar fasciitis but missed the orthopedic appointment. States she's been taking Tylenol for pain but no other medications. Has not been trying anything else for pain relief. His any known injury to the foot. Denies numbness or tingling to the foot. - Related Data Home Medications Medication Instructions Recorded Confirmed Albuterol Inhaler [Ventolin Hfa 2 puff INHALATION RT-QID PRN 03/02/20 03/02/20 Inhaler] Previous Rx's Medication Instructions Recorded Ibuprofen [Motrin] 600 mg PO Q8HR PRN #30 tab 03/02/20 Allergies Allergy/AdvReac Type Severity Reaction Status Date / Time bee venom protein (honey bee) Allergy Swelling Verified 03/02/20 21:47 orange juice [[place]] Allergy Anaphylaxis Verified 03/02/20 21:47 Review of Systems ROS Statement: Those systems with pertinent positive or pertinent negative responses have been documented in the HPI. ROS Other: All systems not noted in ROS Statement are negative. Past Medical History Past Medical History: Asthma History of Any Multi-Drug Resistant Organisms: None Reported Past Surgical History: Appendectomy Past Anesthesia/Blood Transfusion Reactions: No Reported Reaction Past Psychological History: No Psychological Hx Reported Smoking Status: Never smoker Past Alcohol Use History: None Reported Past Drug Use History: None Reported - Past Family History Mother History Unknown: Yes Family Medical History: Hypertension General Exam Limitations: no limitations General appearance: alert, in no apparent distress, other (This is a well- developed, well-nourished adult female patient in no acute distress. Vital signs upon presentation are temperature 97.9F, pulse 86, respirations 16, blood pressure 127/85, pulse ox 96% on room air.) Respiratory exam: Present: normal lung sounds bilaterally. Absent: respiratory distress, wheezes, rales, rhonchi, stridor Cardiovascular Exam: Present: regular rate, normal rhythm, normal heart sounds. Absent: systolic murmur, diastolic murmur, rubs, gallop, clicks Extremities exam: Present: normal inspection, full ROM, tenderness (Right heel tenderness), normal capillary refill, other (Skin to the right foot is pink, warm, dry. Cap refills less than 3 seconds. Pedal and posttibial pulses 2+ and equal bilaterally.). Absent: pedal edema, joint swelling, calf tenderness Neurological exam: Present: alert, oriented X3, CN II-XII intact Psychiatric exam: Present: normal affect, normal mood Skin exam: Present: warm, dry, intact, normal color. Absent: rash Course Vital Signs 03/02/20 21:03 Temperature 97.9 F Pulse Rate 86 Respiratory 16 Rate Blood Pressure 127/85 O2 Sat by Pulse 96 Oximetry Medical Decision Making - Medical Decision Making 24 year-old female patient is admitted to the emergency department today for evaluation of right foot pain without injury. Physical examination is unremarkable. Should good neurovascular status. X-ray was obtained and was negative. Symptoms are consistent with plantar fasciitis. We did discuss using an ice bottle for rolling and also obtaining insert specifically for plantar fasciitis. Prescriptions for [facility] for [facility] control. She is instructed to follow up with medical record specialist for further evaluation as soon as possible. Return parameters were discussed in detail. She verbalizes understanding and agrees with this plan. - Radiology Data Radiology results: report reviewed, image reviewed 3 views of the right foot are obtained. Report was reviewed in its entirety. Impression by Dr. Lindsey shows negative right foot exam. No fracture. No adverse change. Disposition Clinical Impression: Right foot pain Disposition: HOME SELF-CARE Condition: Good Instructions (If sedation given, give patient instructions): Plantar Fasciitis (ED) Additional Instructions: Freeze a water bottle and roll it over the bottom of your foot. Rest the foot. Consider purchasing a shoe insert specifically for plantar fasciitis. Follow up with orthopedics as soon as possible. Return to the emergency department for any new, worsening, or concerning symptoms. Prescriptions: Ibuprofen [Motrin] 600 mg PO Q8HR PRN #30 tab PRN Reason: Pain Is patient prescribed a controlled substance at d/c from ED?: No Referrals: Jez Mai MD [STAFF PHYSICIAN] - 1-2 days Time of Disposition: 21:43
--- NOTE | 2020-03-02 21:38 | XR ---
EXAMINATION TYPE: XR foot complete RT DATE OF EXAM: 03/02/2020 COMPARISON: 06/05/2013 HISTORY: Pain. Injury. TECHNIQUE: 3 views FINDINGS: Metatarsals are intact. I see no fracture nor dislocation. Joint spaces are normal. There a re no erosions. There are no pathologic calcifications. IMPRESSION: Negative right foot exam. No fracture. No adverse change.
[2020-03-02] MEDS ORDERED: ACET/COD 300 MG/30 MG STARTER PACK 6 TAB BTL PO STA (21:44)
== END 2020-03-02 21:50 | disposition home or self-care (01) ==
LOC: EC 20:57
DX: M79.671 Pain in right foot (principal); J45.909 Unspecified asthma, uncomplicated; Z90.49 Acquired absence of other specified parts of digestive tract; Z91.030 Bee allergy status; Z91.018 Allergy to other foods
CPT/HCPCS: 73630; 99283; 96372; J1885

== ENCOUNTER 2020-04-20 12:22 | Emergency (ER) | payer BC, OTHER ==
[2020-04-20 12:31] VITALS: RESP 18; TEMP 98.9
[2020-04-20] MEDS ORDERED: METOCLOPRAMIDE 5 MG/ML 2 ML VIAL IVP STA (12:48)
[2020-04-20] MEDS ORDERED: ORPHENADRINE 30 MG/ML 2 ML VIAL IVP STA (12:48)
[2020-04-20] MEDS ORDERED: diphenhydrAMINE 50 MG/ML 1 ML VIAL IVP STA (12:48)
[2020-04-20] MEDS ORDERED: SODIUM CHLORIDE 0.9% 1,000 ML IV ONE (12:48)
--- NOTE | 2020-04-20 12:53 | ED ---
General Adult HPI - General Chief complaint: Headache Stated complaint: headache Time Seen by Provider: 04/20/20 12:37 Source: patient, RN notes reviewed Mode of arrival: ambulatory Limitations: no limitations - History of Present Illness Initial comments: 24-year-old female presents emergency Department chief complaint headache 4 days. Patient states gradual onset throughout the day not sudden onset of pain. Patient states she's never had any like this. She states that she has had frequent headaches but never been evaluated for them. Denies any nausea vomiting she states she has slight photophobia. No neck pain or neck stiffness no significant dizziness, focal weakness, chest pain or shortness breath. She states that she gets medications or last few days nothing recently. Nothing makes her pain feel better or worse. - Related Data Home Medications Medication Instructions Recorded Confirmed Albuterol Inhaler [Ventolin Hfa 2 puff INHALATION RT-QID PRN 03/02/20 03/02/20 Inhaler] Previous Rx's Medication Instructions Recorded Ibuprofen [Motrin] 600 mg PO Q8HR PRN #30 tab 03/02/20 Allergies Allergy/AdvReac Type Severity Reaction Status Date / Time bee venom protein (honey bee) Allergy Swelling Verified 04/20/20 12:31 orange juice [[place]] Allergy Anaphylaxis Verified 04/20/20 12:31 Review of Systems ROS Statement: Those systems with pertinent positive or pertinent negative responses have been documented in the HPI. ROS Other: All systems not noted in ROS Statement are negative. Past Medical History Past Medical History: Asthma History of Any Multi-Drug Resistant Organisms: None Reported Past Surgical History: Appendectomy Past Anesthesia/Blood Transfusion Reactions: No Reported Reaction Past Psychological History: No Psychological Hx Reported Smoking Status: Never smoker Past Alcohol Use History: None Reported Past Drug Use History: None Reported - Past Family History Mother History Unknown: Yes Family Medical History: Hypertension General Exam Limitations: no limitations General appearance: alert, in no apparent distress Head exam: Present: atraumatic, normocephalic, normal inspection Eye exam: Present: normal appearance, PERRL, EOMI. Absent: scleral icterus, conjunctival injection, periorbital swelling ENT exam: Present: normal exam, normal oropharynx, mucous membranes moist Neck exam: Present: normal inspection, full ROM. Absent: tenderness, meningismus, lymphadenopathy Respiratory exam: Present: normal lung sounds bilaterally. Absent: respiratory distress, wheezes, rales, rhonchi, stridor Cardiovascular Exam: Present: regular rate, normal rhythm, normal heart sounds. Absent: systolic murmur, diastolic murmur, rubs, gallop, clicks Neurological exam: Present: alert, oriented X3, CN II-XII intact, reflexes normal, other (Finger to nose intact bilaterally). Absent: motor sensory deficit Skin exam: Present: warm, dry, intact, normal color. Absent: rash Course Vital Signs 04/20/20 12:29 Temperature 98.9 F Pulse Rate 104 H Respiratory 18 Rate Blood Pressure 124/88 O2 Sat by Pulse 99 Oximetry Medical Decision Making - Medical Decision Making 24-year-old presented for headache. CT shows evidence of sinusitis cyst otherwise no acute abnormality Patient was given Benadryl, Reglan and fluids she states her headache has greatly improved patient we given additional Toradol. Patient discharged in stable condition with no neurological deficits. Disposition Clinical Impression: Migraine Disposition: HOME SELF-CARE Condition: Stable Instructions (If sedation given, give patient instructions): Acute Headache (ED) Additional Instructions: Please return to the Emergency Department if symptoms worsen or any other concerns. Is patient prescribed a controlled substance at d/c from ED?: No Referrals: None,Stated [Primary Care Provider] - 1-2 days Time of Disposition: 13:48
--- NOTE | 2020-04-20 13:12 | CT ---
EXAMINATION TYPE: CT brain wo con DATE OF EXAM: 04/20/2020 COMPARISON: None. HISTORY: Headache, four days CT DLP: 1044.4 mGycm. Automated Exposure Control for Dose Reduction was Utilized. TECHNIQUE: CT scan of the head is performed without contrast. FINDINGS: There is no acute intracranial hemorrhage, mass effect, or midline shift identified. The ventricles and sulci are within normal limits in size. Hernandez-white matter differentiation is maintai vani. There is 10 mm mucus retention cyst or polyp in the right frontal sinus otherwise the paranasal sinuses are clear. Globes are intact bilaterally. IMPRESSION: No acute intracranial hemorrhage or midline shift is seen.
[2020-04-20] MEDS ORDERED: KETOROLAC 15 MG/ML 1 ML VIAL IVP STA (13:15)
[2020-04-20 14:20] VITALS: BP 108/77; PULSE 86
== END 2020-04-20 14:27 | disposition home or self-care (01) ==
LOC: EC 12:22
DX: G43.909 Migraine, unspecified, not intractable, without status migrainosus (principal); J45.909 Unspecified asthma, uncomplicated; Z91.030 Bee allergy status; Z91.018 Allergy to other foods; Z90.49 Acquired absence of other specified parts of digestive tract
CPT/HCPCS: 70450; 99284; 96374; 96375 ×2; 96361; J1200; J2360; J2765

== ENCOUNTER 2020-04-21 10:58 | Emergency (ER) | payer OTHER ==
--- NOTE | 2020-04-21 11:50 | ED ---
URI HPI - General Chief Complaint: Upper Respiratory Infection Stated Complaint: cough/COVID exposure Time Seen by Provider: 04/21/20 11:02 Source: patient, RN notes reviewed Mode of arrival: ambulatory Limitations: no limitations - History of Present Illness Initial Comments: 24-year-old female presents emergency Department chief complaint of covid expo sure. Patient states that she has a slight cough and runny nose associated with the cold outside. Patient states that her work told her that she was exposed from her coworker. Patient denies fevers chills bodyaches headache dizziness currently. Patient was seen here yesterday for headache which has resolved. Patient has no nausea vomiting diarrhea constipation. - Related Data Home Medications Medication Instructions Recorded Confirmed Albuterol Inhaler [Ventolin Hfa 2 puff INHALATION RT-QID PRN 03/02/20 04/21/20 Inhaler] Allergies Allergy/AdvReac Type Severity Reaction Status Date / Time bee venom protein (honey bee) Allergy Swelling/Hi Verified 04/21/20 12:20 ves orange juice [[place]] Allergy Anaphylaxis Verified 04/21/20 12:20 [place] Allergy Swelling/Hi Uncoded 04/21/20 12:20 ves Review of Systems ROS Statement: Those systems with pertinent positive or pertinent negative responses have been documented in the HPI. ROS Other: All systems not noted in ROS Statement are negative. Past Medical History Past Medical History: Asthma History of Any Multi-Drug Resistant Organisms: None Reported Past Surgical History: Appendectomy Past Anesthesia/Blood Transfusion Reactions: No Reported Reaction Past Psychological History: No Psychological Hx Reported Smoking Status: Never smoker Past Alcohol Use History: None Reported Past Drug Use History: None Reported - Past Family History Mother History Unknown: Yes Family Medical History: Hypertension General Exam Limitations: no limitations General appearance: alert, in no apparent distress Head exam: Present: atraumatic, normocephalic, normal inspection Eye exam: Present: normal appearance, PERRL, EOMI. Absent: scleral icterus, conjunctival injection, periorbital swelling ENT exam: Present: normal exam, normal oropharynx, mucous membranes moist Neck exam: Present: normal inspection, full ROM. Absent: tenderness, meningismus, lymphadenopathy Respiratory exam: Present: normal lung sounds bilaterally. Absent: respiratory distress, wheezes, rales, rhonchi, stridor Cardiovascular Exam: Present: regular rate, normal rhythm, normal heart sounds. Absent: systolic murmur, diastolic murmur, rubs, gallop, clicks GI/Abdominal exam: Present: soft, normal bowel sounds. Absent: distended, tenderness, guarding, rebound, rigid Neurological exam: Present: alert, oriented X3 Course Vital Signs 04/21/20 04/21/20 10:59 11:52 Temperature 98.5 F Pulse Rate 108 H 102 H Respiratory 16 20 Rate Blood Pressure 120/84 O2 Sat by Pulse 100 Oximetry Medical Decision Making - Medical Decision Making Patient is positive for covid. Vitals are stable patient will be discharged stable condition. - Lab Data Lab Results 04/21/20 Range/Units 11:23 Coronavirus (PCR) Detected A (Not Detectd) Disposition Clinical Impression: COVID-19 Disposition: HOME SELF-CARE Condition: Stable Instructions (If sedation given, give patient instructions): Upper Respiratory Infection (ED) Additional Instructions: Please return to the Emergency Department if symptoms worsen or any other concerns. Is patient prescribed a controlled substance at d/c from ED?: No Referrals: None,Stated [Primary Care Provider] - 1-2 days Time of Disposition: 12:49
[2020-04-21 13:05] VITALS: BP 121/65; PULSE 77; RESP 18; TEMP 98.3
== END 2020-04-21 13:00 | disposition home or self-care (01) ==
LOC: EC 10:58
DX: U07.1 COVID-19 (principal); J45.909 Unspecified asthma, uncomplicated; Z91.030 Bee allergy status; Z91.018 Allergy to other foods
CPT/HCPCS: 87635; 99283

== ENCOUNTER 2020-07-08 14:50 | Emergency (ER) | payer OTHER ==
[2020-07-08 14:57] VITALS: BP 117/82; PULSE 89; RESP 16; TEMP 97.5
[2020-07-08] MEDS ORDERED: ACET/COD 300 MG/30 MG STARTER PACK 6 TAB BTL PO STA (15:02)
--- NOTE | 2020-07-08 15:03 | ED ---
Extremity Problem HPI - General Source: patient Mode of arrival: ambulatory Limitations: no limitations <Mily Inman - Last Filed: 07/08/20 15:47> <Paula Trinidad - Last Filed: 07/10/20 14:16> - General Chief complaint: Extremity Problem,Nontraumatic Stated complaint: SHARP PAIN IN L LEG Time Seen by Provider: 07/08/20 14:58 - History of Present Illness Initial comments: 24-year-old female presenting for left anterior knee pain. Patient states when she ever Apolinar Downs or flexes greater than 90 she has a sharp pain in the anterior left knee. She denies any specific trauma or falls. She states she is experiences in the past but is now getting worse. She denies any redness swelling of the knee is a abrasions or lacerations. Remaining review of systems negative upon arrival patient appears well nontoxic distress (Mily Inman) - Related Data Home Medications Medication Instructions Recorded Confirmed Albuterol Inhaler [Ventolin Hfa 2 puff INHALATION RT-QID PRN 03/02/20 04/21/20 Inhaler] Allergies Allergy/AdvReac Type Severity Reaction Status Date / Time bee venom protein (honey bee) Allergy Swelling/Hi Verified 07/08/20 14:53 ves orange juice [[place]] Allergy Anaphylaxis Verified 07/08/20 14:53 pine trees Allergy Swelling/Hi Uncoded 07/08/20 14:53 ves Review of Systems ROS Other: All systems not noted in ROS Statement are negative. <Mily Inman - Last Filed: 07/08/20 15:47> ROS Other: All systems not noted in ROS Statement are negative. <Paula Trinidad - Last Filed: 07/10/20 14:16> ROS Statement: Those systems with pertinent positive or pertinent negative responses have been documented in the HPI. Past Medical History Past Medical History: Asthma History of Any Multi-Drug Resistant Organisms: None Reported Past Surgical History: Appendectomy Past Anesthesia/Blood Transfusion Reactions: No Reported Reaction Past Psychological History: No Psychological Hx Reported Smoking Status: Never smoker Past Alcohol Use History: None Reported Past Drug Use History: None Reported - Past Family History Mother History Unknown: Yes Family Medical History: Hypertension <Mily Inman - Last Filed: 07/08/20 15:47> General Exam Limitations: no limitations <Mily Inman - Last Filed: 07/08/20 15:47> - General Exam Comments Initial Comments: General: The patient is awake and alert, in no distress, and does not appear acutely ill. Eye: Pupils are equal, round and reactive to light, extra-ocular movements are intact. No nystagmus. There is normal conjunctiva bilaterally. No signs of icterus. Ears, nose, mouth and throat: There are moist mucous membranes and no oral lesions. Neck: The neck is supple, there is no tenderness or JVD. Cardiovascular: There is a regular rate and rhythm. No murmur, rub or gallop is appreciated. Respiratory: Lungs are clear to auscultation, respirations are non-labored, breath sounds are equal. No wheezes, stridor, rales, or rhonchi. Gastrointestinal: Soft, non-distended, non-tender abdomen without masses or organomegaly noted. There is no rebound or guarding present. Musculoskeletal: No swelling , no redness , she is able to fully range the left knee joint however this tender byond 90degrees, Normal ROM, no tenderness right extremity. Strength 5/5. Sensation intact. PT & DP pulses equal bilaterally 2+. Neurological: A&O x 3. CN II-XII intact, There are no obvious motor or sensory deficits. Coordination appears grossly intact. Speech is normal. Skin: Skin is warm and dry and no rashes or lesions are noted. Psychiatric: Cooperative, appropriate mood & affect, normal judgment. (Mily Inman) Course Vital Signs 07/08/20 14:54 Temperature 97.5 F L Pulse Rate 89 Respiratory 16 Rate Blood Pressure 117/82 O2 Sat by Pulse 97 Oximetry Medical Decision Making <Mily Inman - Last Filed: 07/08/20 15:47> <Paula Trinidad - Last Filed: 07/10/20 14:16> - Medical Decision Making Pain anteriorly reproducible to touch. Patient's joint does not appear septic she is able to weight-bear and range without pain out of proportion. Imaging studies negative for acute process I do feel this is likely a tendinitis, or could be related to the meniscus. At this time recommend patient follow-up with primary care provider if symptoms are persistent to follow-up with orthopedic surgery patient is agreeable to this care plan as well as discharge at this time return parameters for any fevers redness swelling and inability to weight-bear arrange were discussed the patient who verbalized understanding (Mily Inman) I was available for consultation in the emergency department. The history and physical exam were done by the midlevel provider. I was consulted for this patients care. I reviewed the case with the midlevel provider and based on their presentation of the patient, I agree with the assessment, medical decision making and plan of care as documented. Chart was dictated using [employer] dictation software. Attempts were made to correct any dictation errors however some typographical errors may persist. Patient was seen during a national state of emergency due to the Covid-19 pandemic. (Paula Trinidad) Disposition Is patient prescribed a controlled substance at d/c from ED?: No Time of Disposition: 15:35 <Mily Inman - Last Filed: 07/08/20 15:47> <Paula Trinidad - Last Filed: 07/10/20 14:16> Clinical Impression: Left anterior knee pain Disposition: HOME SELF-CARE Condition: Good Instructions (If sedation given, give patient instructions): Tendinitis (ED), R.I.C.E. Treatment (ED) Additional Instructions: Please use medication as discussed. Please follow-up with family doctor in the next 2 days, if symptoms persistent f/u with orthopedic surgery. Please return to emergency room if the symptoms increase or worsen or for any other concerns. Referrals: None,Stated [Primary Care Provider] - 1-2 days
--- NOTE | 2020-07-08 15:30 | XR ---
EXAMINATION TYPE: XR knee complete LT DATE OF EXAM: 07/08/2020 CLINICAL HISTORY: Pain. TECHNIQUE: Three views of the left knee are obtained. COMPARISON: Left knee x-ray November 22, 2019 FINDINGS: There is no acute fracture/dislocation evident in left knee. The tri-compartment joint sp aces appear stable and within normal limits. The overlying soft tissue appears unremarkable. IMPRESSION: Unremarkable study. No significant change from prior
== END 2020-07-08 15:41 | disposition home or self-care (01) ==
LOC: EC 14:50
DX: M25.562 Pain in left knee (principal); J45.909 Unspecified asthma, uncomplicated; Z90.09 Acquired absence of other part of head and neck
CPT/HCPCS: 99283

== ENCOUNTER 2020-09-30 12:07 | Emergency (ER) | payer OTHER ==
[2020-09-30 12:49] VITALS: BP 120/81; PULSE 86; RESP 16; TEMP 98.4
--- NOTE | 2020-09-30 13:02 | ED ---
General Adult HPI - General Chief complaint: Back Pain/Injury Stated complaint: 5Wks Preg/Rt Side Pain Time Seen by Provider: 09/30/20 12:51 Source: patient, RN notes reviewed Mode of arrival: ambulatory Limitations: no limitations - History of Present Illness Initial comments: Patient is a 24-year-old female that presents to emergency room complaining of right side pain after lifting and heavy box at work and twisted with it. She notes that she has some tenderness on her right flank just inferior her rib worse with movement. She noted that it happened while lifting the box she felt a pull-like sensation. She was in no apparent distress or pain. She denied any other complaints. She did note that she has a prostate 5 weeks and just wanted to make sure that it wouldn't affect the baby. - Related Data Home Medications Medication Instructions Recorded Confirmed Albuterol Inhaler [Ventolin Hfa 2 puff INHALATION RT-QID PRN 03/02/20 04/21/20 Inhaler] Allergies Allergy/AdvReac Type Severity Reaction Status Date / Time bee venom protein (honey bee) Allergy Swelling/Hi Verified 09/30/20 12:49 ves orange juice [[place]] Allergy Anaphylaxis Verified 09/30/20 12:49 pine trees Allergy Swelling/Hi Uncoded 09/30/20 12:49 ves Review of Systems ROS Statement: Those systems with pertinent positive or pertinent negative responses have been documented in the HPI. ROS Other: All systems not noted in ROS Statement are negative. Past Medical History Past Medical History: Asthma History of Any Multi-Drug Resistant Organisms: None Reported Past Surgical History: Appendectomy Past Anesthesia/Blood Transfusion Reactions: No Reported Reaction Past Psychological History: No Psychological Hx Reported Smoking Status: Never smoker Past Alcohol Use History: None Reported Past Drug Use History: None Reported - Past Family History Mother History Unknown: Yes Family Medical History: Hypertension General Exam Limitations: no limitations General appearance: alert, in no apparent distress, obese, other (Right-sided oblique tenderness just inferior the ribs worse with movement.) Head exam: Present: atraumatic, normocephalic, normal inspection Eye exam: Present: normal appearance, PERRL, EOMI. Absent: scleral icterus, conjunctival injection, periorbital swelling ENT exam: Present: normal exam, mucous membranes moist Neck exam: Present: normal inspection Respiratory exam: Present: normal lung sounds bilaterally. Absent: respiratory distress, wheezes, rales, rhonchi, stridor Cardiovascular Exam: Present: regular rate, normal rhythm, normal heart sounds. Absent: systolic murmur, diastolic murmur, rubs, gallop, clicks Extremities exam: Present: normal inspection, full ROM, normal capillary refill. Absent: tenderness, pedal edema, joint swelling, calf tenderness Neurological exam: Present: alert, oriented X3 Psychiatric exam: Present: normal affect, normal mood Skin exam: Present: warm, dry, intact, normal color. Absent: rash Course Vital Signs 09/30/20 12:47 Temperature 98.4 F Pulse Rate 86 Respiratory 16 Rate Blood Pressure 120/81 O2 Sat by Pulse 100 Oximetry Medical Decision Making - Medical Decision Making 24-year-old female complaining of right side pain after lifting a heavy box and twisting with it. Given clinical symptoms and mechanism of injury patient most likely has an oblique strain. Patient will be given a work note with lifting restrictions for the next couple days. Case discussed with Dr. Loredo, patient discharge home with follow-up to primary care and [facility] [employer] as planned. Disposition Clinical Impression: Strain of abdominal muscle Disposition: HOME SELF-CARE Condition: Stable Instructions (If sedation given, give patient instructions): Muscle Strain (ED) Additional Instructions: Please return to the Emergency Department if symptoms worsen or any other concerns. Take Tylenol as needed for pain. follow up With primary care as needed. Is patient prescribed a controlled substance at d/c from ED?: No Referrals: None,Stated [Primary Care Provider] - 1-2 days Time of Disposition: 13:02
== END 2020-09-30 13:13 | disposition home or self-care (01) ==
LOC: EC 12:07
DX: O9A.211 Injury, poisoning and certain other consequences of external causes complicating pregnancy, first trimester (principal); S39.011A Strain of muscle, fascia and tendon of abdomen, initial encounter; O99.511 Diseases of the respiratory system complicating pregnancy, first trimester; J45.909 Unspecified asthma, uncomplicated; Z3A.01 Less than 8 weeks gestation of pregnancy; Z82.49 Family history of ischemic heart disease and other diseases of the circulatory system; Z79.899 Other long term (current) drug therapy; X50.0XXA Overexertion from strenuous movement or load, initial encounter
CPT/HCPCS: 99283

== ENCOUNTER 2020-12-13 05:59 | Emergency (ER) | payer OTHER ==
[2020-12-13 06:08] LABS: Glucose,Whole Blood 92 mg/dL (75-99)
[2020-12-13] MEDS ORDERED: SODIUM CHLORIDE 0.9% 1,000 ML IV STA (06:48)
--- NOTE | 2020-12-13 07:17 | ED ---
General Adult HPI - General Chief complaint: Dizziness Stated complaint: dizziness, 16wks preg Time Seen by Provider: 12/13/20 06:11 Source: patient, RN notes reviewed Mode of arrival: ambulatory - History of Present Illness Initial comments: 25-year-old female currently 16 weeks with twins presents to the emergency room for chief complaint of asthma. Patient states that for the past few weeks she has been having some lightheadedness and shaking episodes. States that they have been randomly. She then tries to eat something and denies feels better. Patient states the last for about 20 minutes or so. She reports that this happened at work today and she was sent home. States that in these episodes her hands will shake. 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 - Related Data Home Medications Medication Instructions Recorded Confirmed Albuterol Inhaler [Ventolin Hfa 2 puff INHALATION RT-QID PRN 03/02/20 04/21/20 Inhaler] Previous Rx's Medication Instructions Recorded Amoxicillin/Potassium Clav 1 tab PO BID 7 Days #14 tab 12/13/20 [Augmentin 875-125 Tablet] Allergies Allergy/AdvReac Type Severity Reaction Status Date / Time bee venom protein (honey bee) Allergy Swelling/Hi Verified 12/13/20 06:08 ves orange juice [[place]] Allergy Anaphylaxis Verified 12/13/20 06:08 pine trees Allergy Swelling/Hi Uncoded 12/13/20 06:08 ves Review of Systems ROS Statement: Those systems with pertinent positive or pertinent negative responses have been documented in the HPI. ROS Other: All systems not noted in ROS Statement are negative. Past Medical History Past Medical History: Asthma History of Any Multi-Drug Resistant Organisms: None Reported Past Surgical History: Appendectomy Past Anesthesia/Blood Transfusion Reactions: No Reported Reaction Past Psychological History: No Psychological Hx Reported Smoking Status: Never smoker Past Alcohol Use History: None Reported Past Drug Use History: None Reported - Past Family History Mother History Unknown: Yes Family Medical History: Hypertension General Exam General appearance: alert, in no apparent distress Head exam: Present: atraumatic Eye exam: Present: normal appearance, PERRL, EOMI. Absent: scleral icterus, conjunctival injection ENT exam: Present: normal exam, mucous membranes moist Neck exam: Present: normal inspection, full ROM. Absent: tenderness Respiratory exam: Present: normal lung sounds bilaterally. Absent: respiratory distress, wheezes Cardiovascular Exam: Present: regular rate, normal rhythm, normal heart sounds GI/Abdominal exam: Present: soft, normal bowel sounds. Absent: distended, tenderness Course Vital Signs 12/13/20 12/13/20 06:01 07:20 Temperature 98.1 F Pulse Rate 100 Pulse Rate [ 79 Sitting] Pulse Rate [ 84 Standing] Pulse Rate [ 74 Supine] Respiratory 18 18 Rate Blood Pressure 122/84 Blood Pressure 131/90 [Sitting] Blood Pressure 122/96 [Standing] Blood Pressure 108/75 [Supine] O2 Sat by Pulse 98 Oximetry Medical Decision Making - Medical Decision Making Vitals stable. Orthostatics negative. CBC CMP unremarkable. Urinalysis does show mild possible UTI, will be started on antibiotics. Abx will be tailored to cover possible pneumonia seen on CXR. She feels better after fluids. 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 She will return here for any worsening symptoms. - Lab Data Result diagrams: 12/13/20 07:12 12/13/20 07:12 Lab Results 12/13/20 12/13/20 12/13/20 Range/Units 06:06 07:12 07:12 WBC 11.3 H (3.8-10.6) k/uL RBC 4.07 (3.80-5.40) m/uL Hgb 12.8 (11.4-16.0) gm/dL Hct 36.9 (34.0-46.0) % MCV 90.5 (80.0-100.0) fL MCH 31.4 (25.0-35.0) pg MCHC 34.7 (31.0-37.0) g/dL RDW 12.0 (11.5-15.5) % Plt Count 275 (150-450) k/uL MPV 8.6 Neutrophils % 73 % Lymphocytes % 20 % Monocytes % 4 % Eosinophils % 2 % Basophils % 0 % Neutrophils # 8.3 H (1.3-7.7) k/uL Lymphocytes # 2.3 (1.0-4.8) k/uL Monocytes # 0.4 (0-1.0) k/uL Eosinophils # 0.2 (0-0.7) k/uL Basophils # 0.0 (0-0.2) k/uL Sodium (137-145) mmol/L Potassium (3.5-5.1) mmol/L Chloride (98-107) mmol/L Carbon Dioxide (22-30) mmol/L Anion Gap mmol/L BUN (7-17) mg/dL Creatinine (0.52-1.04) mg/dL Est GFR (CKD-EPI)AfAm (>60 ml/min/1.73 sqM) Est GFR (CKD-EPI)NonAf (>60 ml/min/1.73 sqM) Glucose (74-99) mg/dL POC Glucose (mg/dL) 92 (75-99) mg/dL POC Glu Referral Agent ID Ignacio Agrawal Calcium (8.4-10.2) mg/dL Total Bilirubin (0.2-1.3) mg/dL AST (14-36) U/L ALT (4-34) U/L Alkaline Phosphatase (38-126) U/L Total Protein (6.3-8.2) g/dL Albumin (3.5-5.0) g/dL Urine Color Light Yellow Urine Appearance Clear (Clear) Urine pH 7.5 (5.0-8.0) Ur Specific [place] 1.009 (1.001-1.035) Urine Protein Negative (Negative) Urine Glucose (UA) Negative (Negative) Urine Ketones Negative (Negative) Urine Blood Negative (Negative) Urine Nitrite Negative (Negative) Urine Bilirubin Negative (Negative) Urine Urobilinogen <2.0 (<2.0) mg/dL Ur Leukocyte Esterase Large H (Negative) Urine RBC 1 (0-5) /hpf Urine WBC 24 H (0-5) /hpf Ur Squamous Epith Cells 2 (0-4) /hpf Urine Bacteria Rare H (None) /hpf Urine Mucus Rare H (None) /hpf 12/13/20 Range/Units 07:12 WBC (3.8-10.6) k/uL RBC (3.80-5.40) m/uL Hgb (11.4-16.0) gm/dL Hct (34.0-46.0) % MCV (80.0-100.0) fL MCH (25.0-35.0) pg MCHC (31.0-37.0) g/dL RDW (11.5-15.5) % Plt Count (150-450) k/uL MPV Neutrophils % % Lymphocytes % % Monocytes % % Eosinophils % % Basophils % % Neutrophils # (1.3-7.7) k/uL Lymphocytes # (1.0-4.8) k/uL Monocytes # (0-1.0) k/uL Eosinophils # (0-0.7) k/uL Basophils # (0-0.2) k/uL Sodium 135 L (137-145) mmol/L Potassium 3.9 (3.5-5.1) mmol/L Chloride 104 (98-107) mmol/L Carbon Dioxide 23 (22-30) mmol/L Anion Gap 8 mmol/L BUN 7 (7-17) mg/dL Creatinine 0.40 L (0.52-1.04) mg/dL Est GFR (CKD-EPI)AfAm >90 (>60 ml/min/1.73 sqM) Est GFR (CKD-EPI)NonAf >90 (>60 ml/min/1.73 sqM) Glucose 83 (74-99) mg/dL POC Glucose (mg/dL) (75-99) mg/dL POC Glu Referral Agent ID Calcium 9.4 (8.4-10.2) mg/dL Total Bilirubin 0.2 (0.2-1.3) mg/dL AST 17 (14-36) U/L ALT 16 (4-34) U/L Alkaline Phosphatase 100 (38-126) U/L Total Protein 6.7 (6.3-8.2) g/dL Albumin 3.7 (3.5-5.0) g/dL Urine Color Urine Appearance (Clear) Urine pH (5.0-8.0) Ur Specific [place] (1.001-1.035) Urine Protein (Negative) Urine Glucose (UA) (Negative) Urine Ketones (Negative) Urine Blood (Negative) Urine Nitrite (Negative) Urine Bilirubin (Negative) Urine Urobilinogen (<2.0) mg/dL Ur Leukocyte Esterase (Negative) Urine RBC (0-5) /hpf Urine WBC (0-5) /hpf Ur Squamous Epith Cells (0-4) /hpf Urine Bacteria (None) /hpf Urine Mucus (None) /hpf Disposition Clinical Impression: UTI (urinary tract infection), Lightheaded Disposition: HOME SELF-CARE Condition: Good Instructions (If sedation given, give patient instructions): Dizziness (ED) Additional Instructions: Please drink plenty of fluids. Follow-up with your doctor in one to 2 days. Return to the emergency room for any worsening symptoms. Prescriptions: Amoxicillin/Potassium Clav [Augmentin 875-125 Tablet] 1 tab PO BID 7 Days #14 tab Is patient prescribed a controlled substance at d/c from ED?: No Referrals: Yeimy Ibrahim MD [STAFF PHYSICIAN] - 1-2 days Time of Disposition: 08:09
[2020-12-13 07:22] LABS: Basophils % (A) 0 %; Eosinophils # (A) 0.2 k/uL (0-0.7); Eosinophils % (A) 2 %; HCT 36.9 % (34.0-46.0); HGB 12.8 gm/dL (11.4-16.0); Lymphocytes # (A) 2.3 k/uL (1.0-4.8); Lymphocytes % (A) 20 %; MCH 31.4 pg (25.0-35.0); MCHC 34.7 g/dL (31.0-37.0); MCV 90.5 fL (80.0-100.0); Mean Platelet Volume 8.6; Monocytes # (A) 0.4 k/uL (0-1.0); Monocytes % (A) 4 %; Neutrophils # (A) 8.3 k/uL (1.3-7.7); Neutrophils % (A) 73 %; Platelet Count 275 k/uL (150-450); RBC 4.07 m/uL (3.80-5.40); WBC 11.3 k/uL (3.8-10.6)
[2020-12-13 07:42] LABS: ALT 16 U/L (4-34); AST 17 U/L (14-36); African American GFR (CKD) >90 (>60 ml/min/1.73 sqM); Albumin 3.7 g/dL (3.5-5.0); Alkaline Phosphatase 100 U/L (38-126); Anion Gap 8 mmol/L; Blood Urea Nitrogen 7 mg/dL (7-17); Calcium 9.4 mg/dL (8.4-10.2); Carbon Dioxide 23 mmol/L (22-30); Chloride 104 mmol/L (98-107); Glucose 83 mg/dL (74-99); Non-African American GFR(CKD) >90 (>60 ml/min/1.73 sqM); Potassium 3.9 mmol/L (3.5-5.1); Sodium 135 mmol/L (137-145); Total Bilirubin 0.2 mg/dL (0.2-1.3); Total Protein 6.7 g/dL (6.3-8.2)
--- NOTE | 2020-12-13 07:49 | XR ---
EXAMINATION TYPE: XR chest 2V DATE OF EXAM: 12/13/2020 COMPARISON: 06/09/2019 HISTORY: 25-year-old female lightheadedness and weakness TECHNIQUE: PA and lateral views FINDINGS: The cardiomediastinal silhouette, aorta, and pulmonary vasculature are within normal limits. Subtle p atchy density at the right base asymmetric to the contralateral side. However, there is generalized l ower lung hazy density related to overlying soft tissue. No other consolidation or pleural effusion. IMPRESSION: Slight asymmetric patchy density at the right base could represent atelectasis. Correlate with patien t's symptoms to exclude an early focus of pneumonia.
[2020-12-13 07:51] LABS: Appearance,Urine Clear (Clear); Bacteria,Urine Rare /hpf; Bilirubin,Urine Negative (Negative); Blood,Urine Negative (Negative); Color,Urine Light Yellow; Glucose,Urine (UA) Negative (Negative); Ketones,Urine Negative (Negative); Leukocyte Esterase,Urine Large (Negative); Mucus,Urine Rare /hpf; Nitrite,Urine Negative (Negative); PH, Urine 7.5 (5.0-8.0); Protein,Urine Negative (Negative); RBC,Urine 1 /hpf (0-5); Specific Gravity,Urine 1.009 (1.001-1.035); Squamous Epithelial Cell,Urine 2 /hpf (0-4); Urobilinogen,Urine <2.0 mg/dL (<2.0); WBC,Urine 24 /hpf (0-5)
[2020-12-13 08:31] VITALS: BP 100/65; PULSE 82; RESP 20; TEMP 98.2
== END 2020-12-13 08:31 | disposition home or self-care (01) ==
LOC: EC 05:59
DX: O99.512 Diseases of the respiratory system complicating pregnancy, second trimester (principal); O23.42 Unspecified infection of urinary tract in pregnancy, second trimester; O26.892 Other specified pregnancy related conditions, second trimester; Z3A.16 16 weeks gestation of pregnancy; J45.909 Unspecified asthma, uncomplicated; R42 Dizziness and giddiness; Z90.49 Acquired absence of other specified parts of digestive tract
CPT/HCPCS: 36415; 71046; 80053; 81001; 85025; 87086; 93005; 96360; 99284

== ENCOUNTER 2020-12-24 10:33 | Emergency (ER) | payer BC, OTHER ==
[2020-12-24 10:44] VITALS: BP 140/88; PULSE 107; RESP 18; TEMP 98.2
--- NOTE | 2020-12-24 11:03 | ED ---
Abdominal Pain HPI - General Chief Complaint: Abdominal Pain Stated Complaint: Back/Abd Pain, 17 WKS preg Time Seen by Provider: 12/24/20 10:51 Source: patient, RN notes reviewed, old records reviewed Mode of arrival: ambulatory Limitations: no limitations - History of Present Illness Initial Comments: Patient is a 25-year-old female, currently 17 weeks with twins, presenting to emergency Department with complaints of low back pain with radia tion to the abdomen over the past 3-4 days. She did talk to her HOSPITAL TECHNICIAN, Dr. Izaguirre today who recommend her coming into the ER for further evaluation. She describes the pain is in her lower to mid back, bilaterally but over the past 1- 2 days, the pain has been radiating toward the right side of her abdomen. She also feels like she is not able to feel the movement of her twins as much over the past couple days. She denies any lower pelvic pain, no vaginal bleeding. She denies any fevers or chills. She does have history of appendectomy. No other abdominal surgeries. She is . She was recently treated for a UTI about a week and a half ago. She did finish entire course. She denies any hematuria or dysuria. She denies any nausea or vomiting, no chest pain or shortness of breath, no cough. She has no further complaints at this time. Patient's vitals are stable upon arrival. She did take some Tylenol earlier today, states it did not seem to help with her pain. - Related Data Home Medications Medication Instructions Recorded Confirmed Albuterol Inhaler [Ventolin Hfa 2 puff INHALATION RT-QID PRN 03/02/20 04/21/20 Inhaler] Previous Rx's Medication Instructions Recorded Amoxicillin/Potassium Clav 1 tab PO BID 7 Days #14 tab 12/13/20 [Augmentin 875-125 Tablet] Allergies Allergy/AdvReac Type Severity Reaction Status Date / Time bee venom protein (honey bee) Allergy Swelling/Hi Verified 12/24/20 10:44 ves orange juice [[place]] Allergy Anaphylaxis Verified 12/24/20 10:44 pine trees Allergy Swelling/Hi Uncoded 12/24/20 10:44 ves Review of Systems ROS Statement: Those systems with pertinent positive or pertinent negative responses have been documented in the HPI. ROS Other: All systems not noted in ROS Statement are negative. Past Medical History Past Medical History: Asthma History of Any Multi-Drug Resistant Organisms: None Reported Past Surgical History: Appendectomy Past Anesthesia/Blood Transfusion Reactions: No Reported Reaction Past Psychological History: No Psychological Hx Reported Smoking Status: Never smoker Past Alcohol Use History: None Reported Past Drug Use History: None Reported - Past Family History Mother History Unknown: Yes Family Medical History: Hypertension General Exam - General Exam Comments Initial Comments: GENERAL: Patient is well-developed and well-nourished. Patient is nontoxic and in no acute distress. HEAD: Atraumatic, normocephalic. EYES: Pupils equal round and reactive to light, extraocular movements intact, sclera anicteric, conjunctiva are normal. Eyelids were unremarkable. ENT: Nares patent, oropharynx clear without exudates. Moist mucous membranes. NECK: Normal range of motion, supple without lymphadenopathy or JVD. LUNGS: Unlabored respirations. Breath sounds clear to auscultation bilaterally and equal. No wheezes rales or rhonchi. HEART: Regular rate and rhythm without murmurs, rubs or gallops. ABDOMEN: Soft, nontender, normoactive bowel sounds. No guarding, no rebound. No masses appreciated. : Deferred MUSCULOSKELETAL: Normal extremities with adequate strength and normal range of motion, no pitting or edema. No clubbing or cyanosis. NEUROLOGICAL: Patient is alert and oriented x 3. Motor and sensory are also intact. Cranial nerves II through XII grossly intact. Symmetrical smile. Normal speech, normal gait. PSYCH: Normal mood, normal affect. SKIN: Warm, Dry, normal turgor, no rashes or lesions noted. Limitations: no limitations Course Vital Signs 12/24/20 10:41 Temperature 98.2 F Pulse Rate 107 H Respiratory 18 Rate Blood Pressure 140/88 O2 Sat by Pulse 98 Oximetry Medical Decision Making - Medical Decision Making Patient is a 25-year-old female, currently 17 weeks with twins, presenting with back pain with radiation to the abdomen or the past 3-4 days. , Dr. HOSPITAL TECHNICIAN is Dr. Izaguirre. Labs today are all within normal limits, urine shows evidence of infection. Ultrasound of the kidneys and bladder revealed no hydronephrosis, no stones seen. tones are normal with both babies at 152/137. I discussed these findings with the patient. I believe her symptoms are consistent with muscle skeletal discomfort/lax ligaments. Recom mended Tylenol for any discomfort. She can follow up with her HOSPITAL TECHNICIAN. She is agreeable to this plan of care and is stable for discharge. Case discussed with Dr. White. - Lab Data Result diagrams: 12/24/20 11:39 12/24/20 11:39 Lab Results 12/24/20 12/24/20 12/24/20 Range/Units 11:39 11:39 11:39 WBC 11.7 H (3.8-10.6) k/uL RBC 3.72 L (3.80-5.40) m/uL Hgb 11.9 (11.4-16.0) gm/dL Hct 34.2 (34.0-46.0) % MCV 92.0 (80.0-100.0) fL MCH 32.0 (25.0-35.0) pg MCHC 34.8 (31.0-37.0) g/dL RDW 12.6 (11.5-15.5) % Plt Count 171 (150-450) k/uL MPV 10.5 Sodium 134 L (137-145) mmol/L Potassium 3.6 (3.5-5.1) mmol/L Chloride 107 (98-107) mmol/L Carbon Dioxide 17 L (22-30) mmol/L Anion Gap 10 mmol/L BUN 9 (7-17) mg/dL Creatinine 0.43 L (0.52-1.04) mg/dL Est GFR (CKD-EPI)AfAm >90 (>60 ml/min/1.73 sqM) Est GFR (CKD-EPI)NonAf >90 (>60 ml/min/1.73 sqM) Glucose 124 H (74-99) mg/dL Calcium 9.1 (8.4-10.2) mg/dL Total Bilirubin 0.3 (0.2-1.3) mg/dL AST 20 (14-36) U/L ALT 16 (4-34) U/L Alkaline Phosphatase 87 (38-126) U/L Total Protein 6.1 L (6.3-8.2) g/dL Albumin 3.3 L (3.5-5.0) g/dL Urine Color Yellow Urine Appearance Clear (Clear) Urine pH 7.0 (5.0-8.0) Ur Specific [place] 1.016 (1.001-1.035) Urine Protein Negative (Negative) Urine Glucose (UA) Negative (Negative) Urine Ketones Negative (Negative) Urine Blood Negative (Negative) Urine Nitrite Negative (Negative) Urine Bilirubin Negative (Negative) Urine Urobilinogen <2.0 (<2.0) mg/dL Ur Leukocyte Esterase Moderate H (Negative) Urine RBC 1 (0-5) /hpf Urine WBC 3 (0-5) /hpf Ur Squamous Epith Cells 1 (0-4) /hpf Amorphous Sediment Rare H (None) /hpf Urine Mucus Rare H (None) /hpf Disposition Clinical Impression: Back pain during Disposition: HOME SELF-CARE Condition: Stable Instructions (If sedation given, give patient instructions): Back Pain (ED) Additional Instructions: Please return to the Emergency Department if symptoms worsen or any other concerns. Recommend Tylenol for any discomfort, heat to the area. Follow up with your HOSPITAL TECHNICIAN. Is patient prescribed a controlled substance at d/c from ED?: No Referrals: None,Stated [Primary Care Provider] - 1-2 days Dario Izaguirre DO [Doctor of Osteopathic Medicine] - 1-2 days Time of Disposition: 13:08
[2020-12-24 12:10] LABS: ALT 16 U/L (4-34); AST 20 U/L (14-36); African American GFR (CKD) >90 (>60 ml/min/1.73 sqM); Albumin 3.3 g/dL (3.5-5.0); Alkaline Phosphatase 87 U/L (38-126); Anion Gap 10 mmol/L; Blood Urea Nitrogen 9 mg/dL (7-17); Calcium 9.1 mg/dL (8.4-10.2); Carbon Dioxide 17 mmol/L (22-30); Chloride 107 mmol/L (98-107); Glucose 124 mg/dL (74-99); Non-African American GFR(CKD) >90 (>60 ml/min/1.73 sqM); Potassium 3.6 mmol/L (3.5-5.1); Sodium 134 mmol/L (137-145); Total Bilirubin 0.3 mg/dL (0.2-1.3); Total Protein 6.1 g/dL (6.3-8.2)
[2020-12-24 12:28] LABS: Amorphous Sediment,Urine Rare /hpf; Appearance,Urine Clear (Clear); Bilirubin,Urine Negative (Negative); Blood,Urine Negative (Negative); Color,Urine Yellow; Glucose,Urine (UA) Negative (Negative); Ketones,Urine Negative (Negative); Leukocyte Esterase,Urine Moderate (Negative); Mucus,Urine Rare /hpf; Nitrite,Urine Negative (Negative); Protein,Urine Negative (Negative); RBC,Urine 1 /hpf (0-5); Specific Gravity,Urine 1.016 (1.001-1.035); Squamous Epithelial Cell,Urine 1 /hpf (0-4); Urobilinogen,Urine <2.0 mg/dL (<2.0); WBC,Urine 3 /hpf (0-5)
[2020-12-24 12:39] LABS: HCT 34.2 % (34.0-46.0); HGB 11.9 gm/dL (11.4-16.0); MCHC 34.8 g/dL (31.0-37.0); Mean Platelet Volume 10.5; Platelet Count 171 k/uL (150-450); RBC 3.72 m/uL (3.80-5.40); RDW 12.6 % (11.5-15.5); WBC 11.7 k/uL (3.8-10.6)
--- NOTE | 2020-12-24 12:47 | US ---
EXAMINATION TYPE: US OB limited DATE OF EXAM: 12/24/2020 COMPARISON: NONE CLINICAL HISTORY: back/flank pain, decreased movement. EXAM PERFORMED: Transabdominal (TA) GESTATIONAL AGE / DATING No growth performed on today?s study per ordering physician HEART RATE: BABY A: 152 BABY B: 137 RHYTHM: Normal IMPRESSION: 1. heart tones identified within the twin gestation. Twin A measures 152 bpm. Twin B measures 137 bpm.
--- NOTE | 2020-12-24 12:47 | US ---
EXAMINATION TYPE: US kidneys/renal and bladder DATE OF EXAM: 12/24/2020 COMPARISON: NONE CLINICAL HISTORY: back/flank pain, hx of stones. EXAM MEASUREMENTS: Right Kidney: 11.6 x 5.3 x 4.9 cm Left Kidney: 11.5 x 5.6 x 4.8 cm patient with flank pain. Right Kidney: echogenic sinus, no nephrolithiasis or hydronephrosis Left Kidney: echogenic sinus, no cholelithiasis or hydronephrosis Bladder: wnl IMPRESSION: No hydronephrosis or nephrolithiasis seen. Renal sinus somewhat echogenic which is a nonspecific find ing. 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
[2020-12-24 14:01] LABS: Eosinophils # (M) 0.35 k/uL (0-0.7); Lymphocytes # (M) 3.16 k/uL (1.0-4.8); Monocytes # (M) 0.59 k/uL (0-1.0); Neutrophils # (M) 7.61 k/uL (1.3-7.7); Neutrophils % (M) 65 %; Nucleated Red Blood Cells 0 /100 WBC (0-0); Total Cells Counted 100
== END 2020-12-24 13:15 | disposition home or self-care (01) ==
LOC: EC 10:33
DX: O26.892 Other specified pregnancy related conditions, second trimester (principal); J45.909 Unspecified asthma, uncomplicated; Z90.49 Acquired absence of other specified parts of digestive tract; Z3A.17 17 weeks gestation of pregnancy
CPT/HCPCS: 36415; 76770; 76815; 80053; 81001; 85025; 99284

== ENCOUNTER 2021-02-07 04:10 | Observation (INO) | payer OTHER ==
[2021-02-07] MEDS ORDERED: LACTATED RINGERS 500 ML IV SCH (04:45)
[2021-02-07 05:16] LABS: Basophils % (A) 0 %; Eosinophils # (A) 0.1 k/uL (0-0.7); Eosinophils % (A) 1 %; HCT 35.4 % (34.0-46.0); HGB 12.2 gm/dL (11.4-16.0); Lymphocytes % (A) 17 %; MCH 31.2 pg (25.0-35.0); MCHC 34.6 g/dL (31.0-37.0); MCV 90.1 fL (80.0-100.0); Monocytes # (A) 0.4 k/uL (0-1.0); Monocytes % (A) 4 %; Neutrophils # (A) 8.7 k/uL (1.3-7.7); Neutrophils % (A) 76 %; Platelet Count 288 k/uL (150-450); RBC 3.93 m/uL (3.80-5.40); RDW 13.4 % (11.5-15.5); WBC 11.4 k/uL (3.8-10.6)
[2021-02-07 05:22] LABS: Appearance,Urine Cloudy (Clear); Bilirubin,Urine Negative (Negative); Blood,Urine Large (Negative); Color,Urine Light Red; Glucose,Urine (UA) Negative (Negative); Ketones,Urine Negative (Negative); Leukocyte Esterase,Urine Small (Negative); Mucus,Urine Many /hpf; Nitrite,Urine Negative (Negative); Protein,Urine 1+ (Negative); RBC,Urine >182 /hpf (0-5); Specific Gravity,Urine 1.025 (1.001-1.035); Squamous Epithelial Cell,Urine 1 /hpf (0-4); Urobilinogen,Urine <2.0 mg/dL (<2.0); WBC,Urine 7 /hpf (0-5)
[2021-02-07] MEDS ORDERED: LACTATED RINGERS 1,000 ML IV SCH (05:30)
[2021-02-07 06:02] VITALS: RESP 16
[2021-02-07 06:21] VITALS: TEMP 98.2
--- NOTE | 2021-02-07 06:42 | P.HPOB ---
History of Present Illness H&P Date: 02/07/21 Chief Complaint: Low back pain and contractions. This patient is a 25-year-old 2 para 1 estimated date of confinement 05/30/2021 estimated gestational age 24-0/7 weeks who called me at about 3:00 this morning stating that she was at work and having regular contractions and lower back pain. Patient states these have been going on all day long but however now are more painful. Patient's care is per Dr. Izaguirre and is a known twin gestation. Patient has had 1 visit with maternal medicine at approximately 10 weeks that confirmed dichorionic diamniotic twins. Patient however has not returned for any subsequent visits. Patient localizes her pain to her low back. fibronectin is negative and cervix is closed. Urinalysis is significant for a large amount of blood and a small amount of leukocyte esterase and this is consistent with possible kidney stones versus urinary tract infection. Patient is afebrile and white count was normal. Patient does report apparently a history of kidney to stones in the past. Review of Systems Constitutional: Reports as per HPI Genitourinary: Reports flank pain, Reports pelvic pain, Reports Menstruation: Reports amenorrhea Past Medical History Past Medical History: Asthma Additional Past Medical History / Comment(s): history of kidney stones per patient; patient's had a previous vaginal delivery. History of Any Multi-Drug Resistant Organisms: None Reported Past Surgical History: Appendectomy Past Anesthesia/Blood Transfusion Reactions: No Reported Reaction Past Psychological History: No Psychological Hx Reported Smoking Status: Never smoker Past Alcohol Use History: None Reported Past Drug Use History: None Reported - Past Family History Mother History Unknown: Yes Family Medical History: Hypertension Medications and Allergies Home Medications Medication Instructions Recorded Confirmed Type Pnv No.95/Ferrous Fum/Folic AC 1 tab PO DAILY 02/07/21 02/07/21 History [ Multivitamin Tablet] Allergies Allergy/AdvReac Type Severity Reaction Status Date / Time bee venom protein (honey bee) Allergy Swelling/Hi Verified 12/24/20 10:44 ves orange juice [[place]] Allergy Anaphylaxis Verified 12/24/20 10:44 pine trees Allergy Swelling/Hi Uncoded 12/24/20 10:44 ves Exam Vital Signs Temp Pulse Resp BP 02/07/21 06:14 98.2 F 104 H 16 142/85 02/07/21 05:40 98.7 F 96 16 113/77 Intake and Output 02/06/21 02/06/21 02/07/21 14:59 22:59 06:59 Other: # Voids 1 Weight 92.079 kg - OBG Physical Exam Abdomen: bowel sounds normal, no diffuse tenderness, no bruit present, no guarding noted, no hepatomegaly, no splenomegaly, no mass Vulva: both: normal Vagina: normal moisture, no discharge Cervix: no lesion (cervix closed per RN.), no discharge Uterus: enlarged Results blood work shows she is a positive, rubella immune, RPR nonreactive, hepatitis B negative, HIV is nonreactive. Patient had an ultrasound in our office that showed suboptimal anatomy and apparently is supposed to go to maternal- medicine however has not made that visit as of yet. Result Diagrams: 02/07/21 04:45 Abnormal Lab Results - Last 24 Hours (Table) 02/07/21 02/07/21 Range/Units 04:45 04:45 WBC 11.4 H (3.8-10.6) k/uL Neutrophils # 8.7 H (1.3-7.7) k/uL Urine Appearance Cloudy H (Clear) Urine Protein 1+ H (Negative) Urine Blood Large H (Negative) Ur Leukocyte Esterase Small H (Negative) Urine RBC >182 H (0-5) /hpf Urine WBC 7 H (0-5) /hpf Urine Mucus Many H (None) /hpf Assessment and Plan Assessment: This patient is a 25-year-old 2 para 1 female at 24-0/7 weeks gestation with significant low back pain and pelvic discomfort. Patient has a known dichorionic diamniotic twin gestation. Patient appears to have been delayed for noncompliant with follow-up with maternal- medicine. Urinalysis and evaluation at this time is consistent with probable kidney stones versus urinary tract infection. Plan is IV hydration, IV antibiotics, ultrasound of the kidneys bladder and fetuses. Patient has told the nurse and myself that she does not want to be admitted to the hospital due to childcare issues. I had a long discussion with her about the importance of admission for observation and IV fluids and antibiotics. She states that she will stay and discuss this with Dr. Izaguirre this morning. (1) 24 weeks gestation of Current Visit: Yes Status: Acute Code(s): Z3A.24 - 24 WEEKS GESTATION OF SNOMED Code(s): 069646940 (2) Dichorionic diamniotic twin in second trimester Current Visit: Yes Status: Acute Code(s): O30.042 - TWIN , DICHORIONIC/DIAMNIOTIC, SECOND TRIMESTER SNOMED Code(s): 924863287 (3) Back pain affecting in second trimester Current Visit: Yes Status: Acute Code(s): O99.891 - OTH DISEASES AND CONDITIONS COMPLICATING ; M54.9 - DORSALGIA, UNSPECIFIED SNOMED Code(s): 80580903
[2021-02-07 08:15] VITALS: BP 113/75; PULSE 87
[2021-02-07 08:37] LABS: ALT 15 U/L (4-34); AST 17 U/L (14-36); African American GFR (CKD) >90 (>60 ml/min/1.73 sqM); Albumin 3.1 g/dL (3.5-5.0); Alkaline Phosphatase 109 U/L (38-126); Anion Gap 5 mmol/L; Blood Urea Nitrogen 7 mg/dL (7-17); Calcium 8.6 mg/dL (8.4-10.2); Carbon Dioxide 22 mmol/L (22-30); Chloride 106 mmol/L (98-107); Glucose 83 mg/dL (74-99); Non-African American GFR(CKD) >90 (>60 ml/min/1.73 sqM); Potassium 3.8 mmol/L (3.5-5.1); Sodium 133 mmol/L (137-145); Total Bilirubin 0.2 mg/dL (0.2-1.3)
--- NOTE | 2021-02-07 09:17 | P.PN ---
Progress Note - Text Progress Note Date: 02/07/21 Ligia is seen and evaluated later in the morning by myself. Ultrasound is pending. Her pain she relates is better at this time. In describing her pain earlier sharp and stabbing and began up in her left flank and radiated to her front and down into her thigh is very consistent with a kidney stone pain. She relates that the pain was very similar to the pain she had when she had her son a couple of years ago. She would like to be discharged home as soon as possible as she has childcare issues. We will await final report on the ultrasound and as long as nothing else is shown on ultrasound will plan to discharge her home later this morning.
--- NOTE | 2021-02-07 09:21 | US ---
EXAMINATION TYPE: US kidneys/renal and bladder DATE OF EXAM: 02/07/2021 COMPARISON: US CLINICAL HISTORY: Twins, pain, possible kidney stones. Bilateral flank pain radiating to pelvis, righ t side greater than left sided pain; prior renal stones per patient. with twins at approxima tely 24 weeks gestation. EXAM MEASUREMENTS: Right Kidney: 11.6 x 5.6 x 5.1 cm Left Kidney: 11.6 x 5.4 x 5.5 cm Post Void Residual Volume: 7.2ml Right Kidney: prominent renal pelvis is noted; no renal stones are seen Left Kidney: No hydronephrosis or masses seen Bladder: wnl Bilateral Jets seen: very small ureteral jets are seen Normal Post Void Residual: yes Twin gestation is not evaluated on this exam. IMPRESSION: 1. Mildly prominent right renal collecting system without etiology for obstruction. 2. No shadowing renal stones identified.
--- NOTE | 2021-02-07 09:40 | US ---
EXAMINATION TYPE: US OB >= 14 wk twins DATE OF EXAM: 02/07/2021 COMPARISON: Limited OB US CLINICAL HISTORY: Lower abdominal pain. Bilateral flank pain radiating to pelvis, right side greater than left side. ; Dichorionic, diamniotic gestation per patient. GESTATIONAL AGE / DATING Physician Established: (24 weeks/0 days) EDC: 05/30/2020 Dates by LMP: (24 weeks/0 days) EDC: 05/30/2020 Dates by First Scan: this is first growth scan here. Dates by Current Scan for Baby A: (23 weeks/2 days) EDC: 06/04/2021 Dates by Current Scan for Baby B: (23 weeks/3 days) EDC: 06/03/2021 GENERAL TWIN SURVEY TWIN A LOCATION in regards to maternal abd: transverse with cephalic presentation at cervix at interna l os. TWIN B LOCATION in regards to maternal abd: maternal right MEMBRANE SEEN: Yes CERVICAL LENGTH (transabdominal; norm > 3.0cm): 3.5 cm TWIN A: SURVEY/BIOMETRY PLACENTA: posterior PREVIA: no previa, GUS:? 12.8 cm?Normal PRESENTATION: Vertex LIE: Transverse with head maternal Left BPD: 5.7 cm 23 weeks / 3 days HC: 21.3 cm 23 weeks / 2 days AC: 18.8 cm 23 weeks / 4 days FL: 4.3 cm 23 weeks / 6 days ESTIMATED WEIGHT IN GRAMS: 614.55 grams ESTIMATED WEIGHT IN LBS/OZ: 1 lb. 6 oz. WEIGHT PERCENTAGE BASED ON ESTABLISHED DATES: 25.8% HC/AC: 1.13 Normal FL/AC: 22.61 Normal HEART RATE: 157 bpm RHYTHM: Normal TWIN B: SURVEY/BIOMETRY PLACENTA: fundal PRESENTATION: Vertex LIE: Oblique, maternal right BPD: 6.0 cm 24 weeks / 3 days HC: 21.7 cm 23 weeks / 5 days AC: 19.1 cm 23 weeks / 6 days FL: 4.2 cm 23 weeks / 3 days ESTIMATED WEIGHT IN GRAMS: 624.03 grams ESTIMATED WEIGHT IN LBS/OZ: 1 lb. 6 oz. WEIGHT PERCENTAGE BASED ON ESTABLISHED DATES: 29.5% HC/AC: 1.13 Normal FL/AC: 21.72 Normal HEART RATE: 154 bpm RHYTHM: Normal Live Twin as documented above. small parts not evaluated at this time. IMPRESSION: 1. Twin gestation with twin A transverse with head to the maternal left and cardiac activity measurin g 157 bpm. Twin B is oblique with head to the maternal right and a heart rate of 154 bpm.
== END 2021-02-07 09:44 | disposition home or self-care (01) ==
LOC: FBPOP 04:10 → 4FBP 05:29
PROVIDERS: ADMIT Obstetrics & Gynecology; ATTEND Obstetrics & Gynecology
DX: O47.02 False labor before 37 completed weeks of gestation, second trimester (principal); M54.50 Low back pain, unspecified; O30.042 Twin pregnancy, dichorionic/diamniotic, second trimester; Z3A.24 24 weeks gestation of pregnancy; O26.892 Other specified pregnancy related conditions, second trimester; R31.9 Hematuria, unspecified; R82.90 Unspecified abnormal findings in urine; O99.512 Diseases of the respiratory system complicating pregnancy, second trimester; J45.909 Unspecified asthma, uncomplicated; Z91.018 Allergy to other foods; Z91.030 Bee allergy status; Z91.19 Patient's noncompliance with other medical treatment and regimen; Z90.49 Acquired absence of other specified parts of digestive tract; Z87.442 Personal history of urinary calculi; Z82.49 Family history of ischemic heart disease and other diseases of the circulatory system
CPT/HCPCS: 99214; 96365; 82731; 80053; 85025; 81001; 76805; 76810; 76770; G0378; J0690; 96360; 96361

== ENCOUNTER 2021-02-09 04:25 | Observation (INO) | payer OTHER ==
[2021-02-09 06:02] LABS: Appearance,Urine Turbid (Clear); Bilirubin,Urine Negative (Negative); Blood,Urine Large (Negative); Color,Urine Red; Glucose,Urine (UA) Negative (Negative); Ketones,Urine Trace (Negative); Leukocyte Esterase,Urine Moderate (Negative); Mucus,Urine Many /hpf; Nitrite,Urine Negative (Negative); Protein,Urine 1+ (Negative); RBC,Urine >182 /hpf (0-5); Specific Gravity,Urine 1.022 (1.001-1.035); Squamous Epithelial Cell,Urine 3 /hpf (0-4); Urobilinogen,Urine <2.0 mg/dL (<2.0); WBC,Urine 34 /hpf (0-5)
--- NOTE | 2021-02-09 07:43 | P.HPOB ---
History of Present Illness H&P Date: 02/09/21 Chief Complaint: hematuria 25-year-old presents at 24 weeks and 2 days with a twin gestation. She presented to triage complaining of hematuria. Speculum exam was performed and there was no blood in the vagina, UA did show blood. 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 She is afebrile and does not have any back pain or flank pain, she does have pain over her bladder area. heart tones of both twins are category 1. Since the patient's UTI is worsening and she is high risk for pyelonephritis with a twin gestation, I will admit her for 24 hours of IV antibiotics. Review of Systems All systems: negative Constitutional: Denies chills, Denies fever Eyes: denies blurred vision, denies pain Ears, nose, mouth and throat: Denies headache, Denies sore throat Cardiovascular: Denies chest pain, Denies shortness of breath Respiratory: Denies cough Gastrointestinal: Denies abdominal pain, Denies diarrhea, Denies nausea, Denies vomiting Genitourinary: Denies dysuria, Denies hematuria Musculoskeletal: Denies myalgias Integumentary: Denies pruritus, Denies rash Neurological: Denies numbness, Denies weakness Psychiatric: Denies anxiety, Denies depression Endocrine: Denies fatigue, Denies weight change Past Medical History Past Medical History: Asthma Additional Past Medical History / Comment(s): history of kidney stones per patient; patient's had a previous vaginal delivery. History of Any Multi-Drug Resistant Organisms: None Reported Past Surgical History: Appendectomy Past Anesthesia/Blood Transfusion Reactions: No Reported Reaction Smoking Status: Never smoker - Past Family History Mother History Unknown: Yes Family Medical History: Hypertension Medications and Allergies Home Medications Medication Instructions Recorded Confirmed Type Cephalexin [Keflex] 500 mg PO Q6HR #20 cap 02/07/21 02/09/21 Rx Pnv No.95/Ferrous Fum/Folic AC 1 tab PO DAILY 02/07/21 02/09/21 History [ Multivitamin Tablet] Allergies Allergy/AdvReac Type Severity Reaction Status Date / Time bee venom protein (honey bee) Allergy Swelling/Hi Verified 02/09/21 04:27 ves orange juice [[place]] Allergy Anaphylaxis Verified 02/09/21 04:27 pine trees Allergy Swelling/Hi Uncoded 02/09/21 04:27 ves Exam Osteopathic Statement: *. No significant issues noted on an osteopathic structural exam other than those noted in the History and Physical/Consult. Intake and Output 02/08/21 02/09/21 02/09/21 22:59 06:59 14:59 Other: Weight 92.079 kg Heart: Regular rate and rhythm Lungs: Clear to auscultation bilaterally Abdomen: Soft, nontender Extremities: Negative Homans sign Results Abnormal Lab Results - Last 24 Hours (Table) 02/09/21 Range/Units 04:58 Urine Appearance Turbid H (Clear) Urine Protein 1+ H (Negative) Urine Ketones Trace H (Negative) Urine Blood Large H (Negative) Ur Leukocyte Esterase Moderate H (Negative) Urine RBC >182 H (0-5) /hpf Urine WBC 34 H (0-5) /hpf Urine Mucus Many H (None) /hpf Assessment and Plan (1) Dichorionic diamniotic twin in second trimester Current Visit: No Status: Acute Code(s): O30.042 - TWIN , DICHORIONIC/DIAMNIOTIC, SECOND TRIMESTER SNOMED Code(s): 292048421 (2) Abdominal pain affecting Current Visit: No Status: Acute Code(s): O26.899 - OTH RELATED CONDITIONS, UNSPECIFIED TRIMESTER; R10.9 - UNSPECIFIED ABDOMINAL PAIN SNOMED Code(s): 341759013 (3) Complicated urinary tract infection Current Visit: Yes Status: Acute Code(s): N39.0 - URINARY TRACT INFECTION, SITE NOT SPECIFIED SNOMED Code(s): 96762111 Plan: 1. admit to [facility] 2. IV fluids 3. ancef 1gram every 6 hours 4. reg diet 5. doppler FHT q shift
[2021-02-09] MEDS: LACTATED RINGERS 1,000 ML IV ONE ×2 (08:08→17:03)
[2021-02-09] MEDS: ACETAMINOPHEN TAB 500 MG TAB PO PRN ×2 (09:08→15:12)
--- NOTE | 2021-02-09 17:06 | P.PN ---
Progress Note - Text Progress Note Date: 02/09/21 Ligia is seen and evaluated this afternoon. Overall she is doing well. Her vital signs are stable. She voices no complaints at this time. Pain is well- controlled will continue care with IV antibiotics with hopeful discharge home tomorrow once a little more than 24 hours of IV antibiotics are infused
[2021-02-10 04:09] VITALS: TEMP 97.9
[2021-02-10 06:17] LABS: Basophils % (A) 0 %; Eosinophils # (A) 0.1 k/uL (0-0.7); Eosinophils % (A) 1 %; HCT 33.1 % (34.0-46.0); HGB 11.7 gm/dL (11.4-16.0); Lymphocytes # (A) 1.5 k/uL (1.0-4.8); Lymphocytes % (A) 17 %; MCH 31.5 pg (25.0-35.0); MCHC 35.4 g/dL (31.0-37.0); Mean Platelet Volume 8.3; Monocytes # (A) 0.3 k/uL (0-1.0); Monocytes % (A) 4 %; Neutrophils # (A) 6.8 k/uL (1.3-7.7); Neutrophils % (A) 77 %; Platelet Count 257 k/uL (150-450); RBC 3.72 m/uL (3.80-5.40); RDW 12.6 % (11.5-15.5); WBC 8.8 k/uL (3.8-10.6)
[2021-02-10 08:17] VITALS: BP 105/69; PULSE 103; RESP 16
--- NOTE | 2021-02-10 08:43 | P.DS ---
Providers Date of admission: 02/09/21 06:47 Expected date of discharge: 02/10/21 Attending physician: Dario Izaguirre Primary care physician: Stated None Hospital Course: Her status is doing very well this morning. Her vital signs are stable and she is afebrile. Her heart is regular lungs are clear abdomen abdomen is soft. heart tones have been noted on both babies. 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 Other discharge instructions were reviewed and she will follow up me in 1 week. Her white count is noted today at 8.8 and she has a temperature of 97. Patient Condition at Discharge: Good Plan - Discharge Summary New Discharge Prescriptions: No Action Cephalexin [Keflex] 500 mg PO Q6HR #20 cap Pnv No.95/Ferrous Fum/Folic AC [ Multivitamin Tablet] 1 tab PO DAILY Discharge Medication List Cephalexin [Keflex] 500 mg PO Q6HR #20 cap 02/07/21 [Rx] Pnv No.95/Ferrous Fum/Folic AC [ Multivitamin Tablet] 1 tab PO DAILY 02/07/21 [History] Follow up Appointment(s)/Referral(s): Dario Izaguirre DO [Doctor of Osteopathic Medicine] - 1 Week Discharge Disposition: HOME SELF-CARE
== END 2021-02-10 09:18 | disposition home or self-care (01) ==
LOC: FBPOP 04:25 → 4FBP 06:47
PROVIDERS: ADMIT Obstetrics & Gynecology; ATTEND Obstetrics & Gynecology
DX: O23.42 Unspecified infection of urinary tract in pregnancy, second trimester (principal); N39.0 Urinary tract infection, site not specified; O30.042 Twin pregnancy, dichorionic/diamniotic, second trimester; Z3A.24 24 weeks gestation of pregnancy; O99.512 Diseases of the respiratory system complicating pregnancy, second trimester; J45.909 Unspecified asthma, uncomplicated; Z91.030 Bee allergy status; Z91.018 Allergy to other foods; Z91.048 Other nonmedicinal substance allergy status; Z87.442 Personal history of urinary calculi; Z82.49 Family history of ischemic heart disease and other diseases of the circulatory system
CPT/HCPCS: 99215; 96365; 85025; 81001; 87086; G0378; J0690 ×2

== ENCOUNTER 2021-03-03 09:52 | Outpatient (CLI) | payer OTHER ==
[2021-03-03 10:42] VITALS: BP 116/64; PULSE 104; RESP 18; TEMP 97.5
--- NOTE | 2021-03-09 07:59 | P.MSEPDOC ---
Presenting Problems - Arrival Data Date of Arrival on Unit: 03/03/21 Time of Arrival on Unit: 09:56 Mode of Transport: Ambulatory - Complaint OB-Reason for Admission/Chief Complaint: Possible Onset of Labor Comment: contractions started at 0600 and patient states that they are every 15 minutes Medical History - Information : 2 Para: 1 Term: 1 : 0 Abortions: Spontaneous or Elective: 0 Number of Living Children: 1 - Gestational Age Gestational Age by ELIZABETH (wks/days): 27 Weeks and 3 Days - History Complications: Multiple Review of Systems - Review of Systems Constitutional: No problems Breast: No problems ENT: No problems Cardiovascular: No problems Respiratory: No problems Gastrointestinal: No problems Genitourinary: No problems Musculoskeletal: No problems Neurological: No problems Skin: No problems Vital Signs - Temperature Temperature: 97.5 F Temperature Source: Oral - Pulse Right Brachial Pulse Rate: 104 Pulse Assessment Method: Automatic Cuff - Respirations Respiratory Rate: 18 Oxygen Delivery Method: Room Air - Blood Pressure Right Arm Blood Pressure: 116/64 Blood Pressure Mean: 81 Blood Pressure Source: Automatic Cuff Medical Screen Scoring - Cervical Exam Dilation (cm): 0 Effacement (%): 0 Station: -3 Membranes: Intact - Assessment - Baby A Baseline FHR: 140 Heart Rate - NICHD Category: Category I (Normal) - Assessment - Baby B Baseline FHR: 145 Heart Rate - NICHD Category: Category I (Normal) Physician Notification - Physician Notified Physician Notified Date: 03/03/21 Physician Notified Time: 10:30 Physician: Dr Izaguirre New Order Received: Yes - Notification Comment Comment: FFN Maternal Triage Index - Maternal Triage Index Presenting for scheduled procedure w/no complaint: No - Stat/Priority 1 Stat Priority 1: No - Urgent/Priority 2 Urgent Priority 2: Yes Provider Notified: Dr Izaguirre Provider Notified Time: 10:30 Criteria Met for Priority 2: Phone call to Dr Izaguirre. Contractions not palpated or graphed. Patient states she has not had any contractions since getting to hospital. Order to send FFN obtained and Dr Izaguirre will be over to assess shortly. Disposition - Disposition OB Disposition: Triage Discharge Date: 03/03/21 Discharge Time: 12:25 I agree with the RN Medical Screening Exam: Yes Case reviewed; plan agreed upon as documented in EMR&OBIX.: Yes Diagnosis: FALSE LABOR BEFORE 37 COMPLETED WEEKS OF GEST, SECOND TRI
== END 2021-03-03 12:30 | disposition home or self-care (01) ==
LOC: FBPOP 09:52
PROVIDERS: ATTEND Obstetrics & Gynecology
DX: O47.02 False labor before 37 completed weeks of gestation, second trimester (principal); Z3A.27 27 weeks gestation of pregnancy; Z91.030 Bee allergy status; Z91.018 Allergy to other foods
CPT/HCPCS: 82731; 99213

== ENCOUNTER 2021-03-25 10:10 | Outpatient (CLI) | payer OTHER ==
[2021-03-25 12:11] VITALS: BP 131/76; PULSE 114; RESP 14; TEMP 97.5
--- NOTE | 2021-03-25 12:35 | US ---
EXAMINATION TYPE: US OB >= 14 wk twins DATE OF EXAM: 03/25/2021 COMPARISON: 02/07/2021 CLINICAL HISTORY: 25-year-old female GUS, EFW . GESTATIONAL AGE / DATING Physician Established: (30 weeks/4 days) EDC: 05-30-21 Dates by LMP: (30 weeks/4 days) EDC: 05-30-21 Dates by First Scan: not available Dates by Current Scan for Baby A: (30 weeks/4 days) (5 days more growth than expected compared to ) EDC: 05-30-21 Dates by Current Scan for Baby B: (31 weeks/3 days) (10 days more growth than expected compared to 1 04/09/2020) EDC: 05-24-21 GENERAL TWIN SURVEY TWIN A LOCATION: vertex TWIN B LOCATION:vertex MEMBRANE SEEN: Yes CERVICAL LENGTH (transabdominal; norm > 3.0cm: not well seen, exam done for GUS and size TWIN A: SURVEY/BIOMETRY PLACENTA: not well visualized due to shadowing and position, posterior PREVIA: GUS:? 13.5 cm ? PRESENTATION: Vertex BPD: 7.7 cm 31 weeks / 0 days HC: 28.1 cm 30 weeks / 6 days AC: 25.8 cm 30 weeks / 0 days FL: 5.7 cm 30 weeks / 1 days ESTIMATED WEIGHT IN GRAMS: 1524 grams ESTIMATED WEIGHT IN LBS/OZS: 3 lbs. 6 oz. WEIGHT PERCENTAGE BASED ON ESTABLISHED DATES: 25% HC/AC: 1.06 FL/AC: 21 HEART RATE: 136 bpm RHYTHM: Normal TWIN B: SURVEY/BIOMETRY PRESENTATION: Vertex BPD: 7.8 cm 31 weeks / 3 days HC: 29.0 cm 32 weeks / days AC: 27.4 cm 31 weeks / 4 days FL: 5.8 cm 30 weeks / 2 days ESTIMATED WEIGHT IN GRAMS: 1704 grams ESTIMATED WEIGHT IN LBS/OZS: 3 lbs. 12 oz. WEIGHT PERCENTAGE BASED ON ESTABLISHED DATES: 57 % HC/AC: 1.06 FL/AC: 21 HEART RATE: 135 bpm RHYTHM: Normal IMPRESSION: 1. Diamniotic twin pregnancies. Difficulty determining dichorionic versus monochorionic on the presen t exam. Live twin gestations with estimated gestational age of 30 weeks 4 days. Current ultrasound bi ometry is concordant but with 5-10 days more growth than expected compared to 02/07/2021. See above f or current gestational age by measurements. Twin A is at the 25th percentile (similar to prior) and t win B is at the 57th percentile (increased from the 30th percentile on prior). 2. GUS measured at 13.5 cm
== END 2021-03-25 12:13 | disposition home or self-care (01) ==
LOC: FBPOP 10:10
PROVIDERS: ATTEND Obstetrics & Gynecology
DX: O30.003 Twin pregnancy, unspecified number of placenta and unspecified number of amniotic sacs, third trimester (principal); Z3A.30 30 weeks gestation of pregnancy; Z91.030 Bee allergy status; Z91.018 Allergy to other foods
CPT/HCPCS: 59025; 76805; 76810

== ENCOUNTER 2021-04-12 16:26 | Outpatient (CLI) | payer OTHER ==
[2021-04-12 17:49] VITALS: BP 135/87; PULSE 103; RESP 16; TEMP 97.3
--- NOTE | 2021-04-13 08:34 | P.MSEPDOC ---
Presenting Problems - Arrival Data Date of Arrival on Unit: 04/12/21 Time of Arrival on Unit: 16:22 Mode of Transport: Ambulatory - Complaint OB-Reason for Admission/Chief Complaint: Rule Out PROM Medical History - Information : 2 Para: 1 Number of Living Children: 1 - Gestational Age Gestational Age by ELIZABETH (wks/days): 33 Weeks and 1 Days - History Complications: Multiple Review of Systems - Review of Systems Constitutional: No problems Breast: No problems ENT: No problems Cardiovascular: No problems Respiratory: No problems Gastrointestinal: No problems Genitourinary: No problems Musculoskeletal: No problems Neurological: No problems Skin: No problems Vital Signs - Temperature Temperature: 97.3 F Temperature Source: Temporal Artery Scan - Pulse Right Sitting Brachial Pulse Rate: 103 Pulse Assessment Method: Automatic Cuff - Respirations Respiratory Rate: 16 Oxygen Delivery Method: Room Air O2 Sat by Pulse Oximetry: 97 - Blood Pressure Right Arm Sitting Blood Pressure: 135/87 Blood Pressure Mean: 103 Blood Pressure Source: Automatic Cuff Medical Screen Scoring - Assessment - Baby A Baseline FHR: 160 Heart Rate - NICHD Category: Category I (Normal) NST: Reactive - Assessment - Baby B Baseline FHR: 135 Heart Rate - NICHD Category: Category I (Normal) NST: Reactive Physician Notification - Physician Notified Physician Notified Date: 04/12/21 Physician Notified Time: 17:25 Physician: Deejay Sherman New Order Received: Yes - Notification Comment Comment: discharge home Maternal Triage Index - Maternal Triage Index Presenting for scheduled procedure w/no complaint: No - Stat/Priority 1 Stat Priority 1: No - Urgent/Priority 2 Urgent Priority 2: Yes Provider Notified: Deejay Sherman Provider Notified Time: 17:25 Criteria Met for Priority 2: leaking fluid Disposition - Disposition OB Disposition: Discharge to home Discharge Date: 04/12/21 Discharge Time: 17:30 I agree with the RN Medical Screening Exam: Yes Case reviewed; plan agreed upon as documented in EMR&OBIX.: Yes Diagnosis: FALSE LABOR BEFORE 37 COMPLETED WEEKS OF GEST, THIRD TRI (twins)
== END 2021-04-12 17:30 | disposition home or self-care (01) ==
LOC: FBPOP 16:26
PROVIDERS: ATTEND Obstetrics & Gynecology
DX: O47.03 False labor before 37 completed weeks of gestation, third trimester (principal); Z3A.33 33 weeks gestation of pregnancy; Z91.030 Bee allergy status; Z91.018 Allergy to other foods
CPT/HCPCS: 59025; 84112; 99213

== ENCOUNTER 2021-05-03 14:19 | Inpatient (IN) | payer OTHER ==
[2021-05-03] MEDS ORDERED: METHYLERGONOVINE 0.2 MG/ML 1 ML AMP IM PRN (15:02)
[2021-05-03] MEDS ORDERED: LIDOCAINE 1% (PF) 10 MG/ML (30 ML SDV) SQ PRN (15:02)
[2021-05-03] MEDS ORDERED: ceFAZolin 3 GM in SODIUM CHLORIDE 0.9% 100 ML IVPB ONE (15:08)
[2021-05-03] MEDS ORDERED: CITRIC ACID-SODIUM CITRATE 15 ML CUP PO ONE (15:08)
[2021-05-03] MEDS ORDERED: LACTATED RINGERS 1,000 ML IV SCH (15:15)
[2021-05-03 15:45] LABS: Basophils % (A) 0 %; Eosinophils # (A) 0.1 k/uL (0-0.7); Eosinophils % (A) 1 %; HCT 35.1 % (34.0-46.0); HGB 11.8 gm/dL (11.4-16.0); Lymphocytes # (A) 2.4 k/uL (1.0-4.8); Lymphocytes % (A) 21 %; MCH 28.9 pg (25.0-35.0); MCHC 33.5 g/dL (31.0-37.0); MCV 86.3 fL (80.0-100.0); Mean Platelet Volume 10.2; Monocytes # (A) 0.5 k/uL (0-1.0); Monocytes % (A) 5 %; Neutrophils # (A) 8.2 k/uL (1.3-7.7); Neutrophils % (A) 72 %; Platelet Count 346 k/uL (150-450); RBC 4.07 m/uL (3.80-5.40); RDW 13.2 % (11.5-15.5); WBC 11.4 k/uL (3.8-10.6)
[2021-05-03 16:04] LABS: ALT 72 U/L (4-34); AST 59 U/L (14-36); African American GFR (CKD) >90 (>60 ml/min/1.73 sqM); Blood Urea Nitrogen 11 mg/dL (7-17); LDH 428 U/L (313-618); Non-African American GFR(CKD) >90 (>60 ml/min/1.73 sqM); Uric Acid 4.7 mg/dL (3.7-7.4)
[2021-05-03 16:07] LABS: Appearance,Urine Clear (Clear); Bacteria,Urine Rare /hpf; Bilirubin,Urine Negative (Negative); Blood,Urine Moderate (Negative); Color,Urine Yellow; Glucose,Urine (UA) Negative (Negative); Ketones,Urine Negative (Negative); Leukocyte Esterase,Urine Small (Negative); Mucus,Urine Rare /hpf; Nitrite,Urine Negative (Negative); PH, Urine 6.5 (5.0-8.0); Protein,Urine 1+ (Negative); RBC,Urine 155 /hpf (0-5); Specific Gravity,Urine 1.021 (1.001-1.035); Squamous Epithelial Cell,Urine 2 /hpf (0-4); Urobilinogen,Urine <2.0 mg/dL (<2.0); WBC,Urine 6 /hpf (0-5)
[2021-05-03 16:09] LABS: INR 0.8 (<1.2); Prothrombin Time 9.4 sec (9.0-12.0)
[2021-05-03 16:15] LABS: Creatinine,Urine Random 157.9 mg/dL; Protein/Creatinine Ratio,Urine 0.146
[2021-05-03 16:19] LABS: Partial Thromboplastin Time 21.9 sec (22.0-30.0)
--- NOTE | 2021-05-03 17:05 | P.HPOB ---
History of Present Illness H&P Date: 05/03/21 Chief Complaint: Contractions This is a 25 rolled female 2 para 1 with an estimated date of confinement of 05/30/2021, estimated gestational age of 36 and one sevenths weeks, with dichorionic/diamniotic twin gestation, who presents to labor and delivery after being seen in the office for routine visit today. This was the first day she was checked in the office and was found to be 5-6 cm. She did state she has been feeling stronger contractions especially at night but not regular. Her care initially started with Dr. Izaguirre and I have seen h er for 2 visits now. She was sent to maternal medicine due to potential twin discordancy. This was at approximately 33 weeks. She did receive 2 doses of steroids at around that time. Ultrasounds there did not show significant discordancy only about 16%. Her latest ultrasound in my office about a week ago showed baby A at 4 lbs. 8 oz. and baby B at 6 pounds. They were both vertex at that time. The patient and I had a discussion regarding mode of . She wishes to proceed with section with tubal ligation. She does have a history of preeclampsia with her first but so far labs and blood pressures have been normal during this . After arriving in labor and delivery however her blood pressures did increase but she was found to be in active labor and she did make cervical change to 7-8 cm. At this time an urgent section was called. labs: Hepatitis B surface antigen-negative RPR-nonreactive Rubella-immune Blood type-A+ Antibody screen-negative Hemoglobin-13.3 Toxoplasma screen-negative Random glucose-98 Quad screen-negative Group B strep-unknown Obstetrical history: . History of 1 vaginal delivery at term with preecla mpsia noted at the end of her . She did deliver at 37 weeks due to preeclampsia. 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 Review of Systems Constitutional: Denies chills, Denies fever Eyes: denies blurred vision, denies pain Ears, nose, mouth and throat: Denies headache, Denies sore throat Cardiovascular: Denies chest pain, Denies shortness of breath Respiratory: Denies cough Gastrointestinal: Reports abdominal pain Genitourinary: Reports pelvic pain, Reports Musculoskeletal: Reports low back pain Integumentary: Denies pruritus, Denies rash Neurological: Denies numbness, Denies weakness Psychiatric: Denies anxiety, Denies depression Past Medical History Past Medical History: Asthma Additional Past Medical History / Comment(s): history of kidney stones per patient; patient's had a previous vaginal delivery. History of Any Multi-Drug Resistant Organisms: None Reported Past Surgical History: Appendectomy Past Anesthesia/Blood Transfusion Reactions: No Reported Reaction Past Psychological History: No Psychological Hx Reported Smoking Status: Never smoker Past Alcohol Use History: None Reported Past Drug Use History: None Reported - Past Family History Mother Family Medical History: Hypertension Medications and Allergies Home Medications Medication Instructions Recorded Confirmed Type Pnv No.95/Ferrous Fum/Folic AC 1 tab PO DAILY 02/07/21 04/12/21 History [ Multivitamin Tablet] Albuterol Inhaler [Ventolin Hfa 1 puff INHALATION DIRECTED 03/25/21 04/12/21 History Inhaler] Allergies Allergy/AdvReac Type Severity Reaction Status Date / Time bee venom protein (honey bee) Allergy Swelling/Hi Verified 04/12/21 17:00 ves orange juice [[place]] Allergy Anaphylaxis Verified 04/12/21 17:00 pine trees Allergy Swelling/Hi Uncoded 04/12/21 17:00 ves Exam Osteopathic Statement: *. No significant issues noted on an osteopathic structural exam other than those noted in the History and Physical/Consult. Intake and Output 05/03/21 05/03/21 05/03/21 06:59 14:59 22:59 Other: Weight 101.605 kg Gen.: Well-developed well-nourished female in mild distress due to labor HEENT: Within normal limits Heart: Regular rate and rhythm Lungs: Her to auscultation bilaterally Abdomen: Cervix: Initially was 5 cm but currently is 7-8 cm, 70%, -2 station with a bulging bag heart tones: On both baby A and B are reactive with category 1 tracing. At the end of monitoring baby A did show category 2 tracing with some variable decelerations. Contractions: Every 2-4 minutes Extremities: Negative Homans Results Result Diagrams: 05/03/21 14:37 05/03/21 15:35 Abnormal Lab Results - Last 24 Hours (Table) 05/03/21 05/03/21 05/03/21 Range/Units 14:37 15:20 15:35 WBC 11.4 H (3.8-10.6) k/uL Neutrophils # 8.2 H (1.3-7.7) k/uL APTT (22.0-30.0) sec AST 59 H (14-36) U/L ALT 72 H (4-34) U/L Urine Protein 1+ H (Negative) Urine Blood Moderate H (Negative) Ur Leukocyte Esterase Small H (Negative) Urine RBC 155 H (0-5) /hpf Urine WBC 6 H (0-5) /hpf Urine Bacteria Rare H (None) /hpf Urine Mucus Rare H (None) /hpf 05/03/21 Range/Units 15:35 WBC (3.8-10.6) k/uL Neutrophils # (1.3-7.7) k/uL APTT 21.9 L (22.0-30.0) sec AST (14-36) U/L ALT (4-34) U/L Urine Protein (Negative) Urine Blood (Negative) Ur Leukocyte Esterase (Negative) Urine RBC (0-5) /hpf Urine WBC (0-5) /hpf Urine Bacteria (None) /hpf Urine Mucus (None) /hpf Assessment and Plan (1) Dichorionic diamniotic twin in third trimester Current Visit: Yes Status: Acute Code(s): O30.043 - TWIN , DICHORIONIC/DIAMNIOTIC, THIRD TRIMESTER SNOMED Code(s): 104997312 (2) Family planning Current Visit: Yes Status: Acute Code(s): Z30.09 - ENCOUNTER FOR OT GENERAL CNSL AND ADVICE ON CONTRACEPTION SNOMED Code(s): 787223855 Plan: Admission for active labor. Will proceed with urgent primary low transverse section with bilateral partial salpingectomy. I have discussed the risks, benefits, and alternative therapies for the above- mentioned procedure and for both sedation/anesthesia as well as necessary blood products administration, if indicated, as they pertain to this patient. The ryan duenas has indicated her understanding and acceptance of the risks and procedures discussed.
--- NOTE | 2021-05-03 17:12 | P.OP ---
Date of Procedure: 05/03/21 Preoperative Diagnosis: 1. Twin gestation at 36 and one sevenths weeks. 2. Active labor. 3. Family-planning. Postoperative Diagnosis: Same Procedure(s) Performed: Primary low transverse section with bilateral partial salpingectomy Anesthesia: spinal (Duramorph) Surgeon: Mariana Gutierrez [employer] Architect #1: Madyson Gooden Estimated Blood Loss (ml): 500 Pathology: other (Placentas, portions of right and left fallopian tubes) Condition: stable Disposition: floor Indications for Procedure: This is a 25-year-old female 2 para 1 at 36 and one sevenths weeks who presented to labor and delivery after being seen in the office and found to be 5 cm. She was found to be in active labor and did make cervical change to 7-8 cm fairly rapidly. She has consented to primary section with bilateral partial salpingectomy. I have discussed the risks, benefits, and alternative therapies for the above- mentioned procedure and for both sedation/anesthesia as well as necessary blood products administration, if indicated, as they pertain to this patient. The patient has indicated her understanding and acceptance of the risks and procedures discussed. Operative Findings: Baby A is a viable female infant in the vertex presentation with scores of 5 at 1 minute and 8 at 5 minutes and infant weight of 5 lbs. 1 oz. There was a cord around the body on this infant. Baby B delivered in the footling breech presentation with scores of 7 at 1 minute and 9 at 5 minutes and weight of 6 lbs. 5 oz. Normal uterus tubes and ovaries are noted. Description of Procedure: The patient is taken to the operating room where she is placed in the dorsal supine position with leftward tilt after spinal Duramorph anesthesia is given. She is prepped and draped in the normal sterile fashion. Skin was tested and found to be adequately anesthetized. A Pfannenstiel skin incision was made with a scalpel. A second knife was used to carry the incision down to the underlying layer of fascia. The fascia was nicked in the midline with a scalpel and then extended laterally bilaterally with Mancilla scissors. The anterior lip of the fascia was grasped with 2 Shiloh clamps and then dissected off the underlying rectus muscle in the midline with Mancilla scissors. The inferior aspect of the fascial incision was grasped with 2 Shiloh clamps and dissected off the underlying rectus muscle and the midline with Mancilla scissors. Next the peritoneum layer was tented up with 2 hemostats and then entered sharply with the scalpel. The incision is extended superiorly and inferiorly with Metzenbaum scissors. Next a DeLee retractor is placed. The vesicouterine peritoneum is entered sharply with Metzenbaum scissors and extended laterally bilaterally with Metzenbaum scissors and then the bladder flap is pushed inferiorly. The lower uterine segment is incised in transverse fashion with the scalpel and then bluntly entered with a hemostat. Clear fluid is noted. The incision was then extended laterally bilaterally with 2 fingers. Next the 's head is delivered through the incision. Nose and mouth are bulb suctioned. The remainder of the is easily delivered and placed on mother's abdomen. Cord is clamped and cut. is taken to warmer by nursing staff. Next the second bag of water is brought to the incision. The bag of brought her is ruptured with a hemostat and clear fluid is noted. Both feet are grasped and brought through the incision followed by the trunk and each hand and a flexed position along with the head in a flexed position. Nose and mouth are then bulb suctioned. Cord is clamped and cut and was taken to warmer for evaluation by awaiting pediatric staff. Uterine fundus is gently massaged and placentas are delivered manually. Uterus is exteriorized and cleared of all clots and debris. Uterine incision is closed with 0 Vicryl suture in a running locked fashion. A second layer of 0 Vicryl suture is used in a running fashion for hemostasis. Once adequate hemostasis as assured, the vesicouterine peritoneum is reapproximated with 2-0 Vicryl suture in a running fashion. Posterior cul-de-sac is suctioned of all clots and debris. Next attention is turned to the tubes. The right fallopian tube is grasped in the midportion with a hemostat. The mesosalpinx is entered with Bovie cautery. Next 0 Vicryl suture is tied around both the proximal and distal portion of the tube 2 times. The knuckle of tube was then removed with Metzenbaum scissors and the ends of the tube are cauterized with Bovie cautery. Good hemostasis is noted. The same procedure is carried out on the left fallopian tube. There was noted to be some oozing from the proximal portion of the right fallopian tube. A third suture is placed around this portion of the tube and excellent hemostasis is noted. Uterus is returned to the abdomen. Incision is noted to be hemostatic. Both tubal sites are inspected and appeared to be hemostatic. Peritoneal layer is closed with 0 Vicryl suture in a running fashion. Muscle layer is reapproximated with 0 Vicryl suture in interrupted fashion. Fascia layer is then closed with 0 PDS suture with 2 sutures meeting in the midline and the knots buried in either side and in the midline. The subcutaneous tissue was then closed with 2-0 Vicryl suture. Skin layer was then closed with samantha. All sponge and needle counts are correct. The patient is taken to recovery room in stable condition.
[2021-05-03] MEDS ORDERED: SIMETHICONE 80 MG CHEWABLE PO PRN (17:27)
[2021-05-03] MEDS ORDERED: NALOXONE 0.4 MG/ML 1 ML VIAL IV PRN ×2 (17:27→17:28)
[2021-05-03] MEDS ORDERED: OXYTOCIN 30 UNITS/500 ML NS 30 UNIT in SALINE 1 500ML.BAG IV SCH (17:27)
[2021-05-03] MEDS ORDERED: METOCLOPRAMIDE 5 MG/ML 2 ML VIAL IVP PRN (17:27)
[2021-05-03] MEDS ORDERED: HYDROmorphone 1 MG/ML 1 ML SYRINGE IVP PRN ×2 (17:27)
[2021-05-03] MEDS ORDERED: diphenhydrAMINE 50 MG CAP PO PRN (17:27)
[2021-05-03] MEDS ORDERED: diphenhydrAMINE 50 MG/ML 1 ML VIAL IVP PRN ×3 (17:27→17:28)
[2021-05-03] MEDS ORDERED: diphenhydrAMINE 25 MG CAP PO PRN (17:27)
[2021-05-03] MEDS ORDERED: ONDANSETRON 4 MG/2 ML VIAL IVP PRN ×2 (17:27→17:28)
[2021-05-03] MEDS ORDERED: ZOLPIDEM 5 MG TAB PO PRN (17:27)
[2021-05-03] MEDS ORDERED: LANOLIN CREAM 5 GM TUBE TOPICAL PRN (17:27)
[2021-05-03] MEDS ORDERED: KETOROLAC 15 MG/ML 1 ML VIAL IVP PRN (17:28)
[2021-05-03] MEDS ORDERED: NALBUPHINE 10 MG/ML (1 ML AMP) IV PRN (17:28)
[2021-05-03] MEDS ORDERED: MAGNESIUM SULFATE-WATER PMX 4 GM in WATER FOR INJECTION 1 100ML.BAG IVPB ONE (18:08)
[2021-05-03] MEDS ORDERED: CALCIUM GLUCONATE 1 GM/10 ML VIAL IV PRN (18:08)
[2021-05-03] MEDS: MAGNESIUM SULFATE-WATER PMX 20 GM in WATER FOR INJECTION 1 500ML.BAG IV SCH (18:27)
[2021-05-03] MEDS: SENNOSIDES-DOCUSATE SODIUM 1 EACH TAB PO SCH (22:07)
[2021-05-03] MEDS: ACETAMINOPHEN TAB 500 MG TAB PO SCH (22:07)
[2021-05-03] MEDS ORDERED: ACETAMINOPHEN IV (For NPO) 1,000 MG in EMPTY BAG 1 BAG IVPB PRN (22:30)
[2021-05-04] MEDS ORDERED: KETOROLAC 30 MG/ML 1 ML VIAL IVP PRN
[2021-05-04] MEDS: IBUPROFEN 600 MG TAB PO SCH ×5 (03:34→23:52)
[2021-05-04] MEDS: MAGNESIUM SULFATE-WATER PMX 20 GM in WATER FOR INJECTION 1 500ML.BAG IV SCH ×2 (05:25→12:23)
[2021-05-04] MEDS: ACETAMINOPHEN TAB 500 MG TAB PO SCH ×4 (05:32→20:38)
--- NOTE | 2021-05-04 06:54 | P.PN ---
Progress Note - Text Progress Note Date: 05/04/21 Postoperative day 1 status post section under spinal anesthesia, and i ntrathecal morphine given for postoperative analgesia, patient doing well, there is no anesthesia related complications, Patient had no headache, vital signs stable , Assessment and plan= postop day 1 status post , doing well there is no anesthesia related complication.
[2021-05-04 08:27] LABS: Basophils % (A) 0 %; Eosinophils % (A) 0 %; HCT 31.7 % (34.0-46.0); HGB 10.6 gm/dL (11.4-16.0); Lymphocytes # (A) 1.7 k/uL (1.0-4.8); Lymphocytes % (A) 14 %; MCH 29.5 pg (25.0-35.0); MCHC 33.4 g/dL (31.0-37.0); MCV 88.3 fL (80.0-100.0); Mean Platelet Volume 9.6; Monocytes # (A) 0.6 k/uL (0-1.0); Monocytes % (A) 5 %; Neutrophils # (A) 9.3 k/uL (1.3-7.7); Neutrophils % (A) 79 %; Platelet Count 249 k/uL (150-450); RBC 3.59 m/uL (3.80-5.40); RDW 13.4 % (11.5-15.5); WBC 11.7 k/uL (3.8-10.6)
[2021-05-04] MEDS: SENNOSIDES-DOCUSATE SODIUM 1 EACH TAB PO SCH ×2 (08:27→20:38)
[2021-05-04] MEDS: PRENATAL VIT-IRON-FOLIC ACID 1 EACH CAP PO SCH (08:27)
[2021-05-04 08:46] LABS: ALT 63 U/L (4-34); AST 56 U/L (14-36); LDH 896 U/L (313-618)
--- NOTE | 2021-05-04 08:59 | P.PNOBGPC ---
Subjective - Subjective Principal diagnosis: Status post primary low transverse section with TL POD #1 Interval history: Patient is doing okay. Her pain is fairly well controlled. She is not passing flatus or bowel movement yet. She still has a Martin catheter in due to magnesium sulfate seizure prophylaxis. Her blood pressures did go up shortly after delivery but have been normal since starting magnesium. She states she is hungry. She is pumping her breast milk. Patient reports: Reports appetite normal, Reports pain well controlled [place]: other (Babies are in level I nursery) Objective - Vital Signs Latest vital signs: Vital Signs Temp Pulse Resp BP Pulse Ox 05/04/21 08:00 18 98 05/04/21 07:51 97.3 F L 94 18 127/86 05/04/21 06:00 83 16 124/86 95 05/04/21 05:00 83 16 123/81 96 05/04/21 04:00 16 97 05/04/21 03:00 98.3 F 83 16 131/82 05/04/21 02:00 80 16 132/86 97 05/04/21 01:00 102 H 16 125/90 05/04/21 00:00 97.8 F 106 H 16 125/68 05/03/21 23:00 97.8 F 95 16 117/69 05/03/21 22:28 95 05/03/21 22:00 98.5 F 88 16 132/80 98 05/03/21 21:00 98.6 F 98 16 132/84 05/03/21 20:28 98.0 F 80 16 132/69 05/03/21 20:00 98.7 F 96 16 133/75 05/03/21 19:56 96 16 135/75 05/03/21 19:01 98.0 F 91 16 137/79 97 05/03/21 18:56 88 16 134/90 05/03/21 18:41 93 16 140/91 95 05/03/21 18:31 86 16 141/93 05/03/21 18:28 96 16 97 05/03/21 18:26 91 16 135/90 05/03/21 18:11 98.3 F 94 16 141/93 05/03/21 18:01 72 16 147/99 99 05/03/21 17:46 98.2 F 64 16 140/95 05/03/21 17:31 98.1 F 72 16 146/89 05/03/21 17:28 83 16 133/84 99 05/03/21 17:16 96.9 F L 82 16 135/83 05/03/21 17:01 96.9 F L 81 16 133/79 99 05/03/21 15:01 98.2 F 82 16 133/84 Intake and Output 05/03/21 05/04/21 05/04/21 22:59 06:59 14:59 Intake Total 425 500 Output Total 1725 1190 200 Balance -1300 -690 -200 Intake: Intake, IV Titration 20 500 Amount Lactated Ringers 1,000 ml 20 @ 125 mls/hr IV .Q8H YAQUELIN Rx#:[id number] Magnesium Sulfate-Water 500 Pmx 20 gm In Water For Injection 1 500ml.bag @ 2 GM/HR 50 mls/hr IV .Q10H YAQUELIN Rx#:[id number] Oral 405 Output: Urine 1000 1150 200 Emesis 40 Estimated Blood Loss 725 Other: Voiding Method Indwelling Catheter Weight 101.605 kg - Exam Extremities: Present: normal. Absent: tenderness, edema Abdomen: Present: normal appearance, soft (Positive bowel sounds 4). Absent: distention, tenderness Incision: Present: normal, dry, intact. Absent: erythematous Uterus: Present: normal, firm. Absent: tenderness - Labs Labs: Abnormal Lab Results - Last 24 Hours (Table) 05/03/21 05/03/21 05/03/21 Range/Units 14:37 15:20 15:35 WBC 11.4 H (3.8-10.6) k/uL RBC (3.80-5.40) m/uL Hgb (11.4-16.0) gm/dL Hct (34.0-46.0) % Neutrophils # 8.2 H (1.3-7.7) k/uL APTT (22.0-30.0) sec Magnesium (1.6-2.3) mg/dL AST 59 H (14-36) U/L ALT 72 H (4-34) U/L Lactate Dehydrogenase (313-618) U/L Urine Protein 1+ H (Negative) Urine Blood Moderate H (Negative) Ur Leukocyte Esterase Small H (Negative) Urine RBC 155 H (0-5) /hpf Urine WBC 6 H (0-5) /hpf Urine Bacteria Rare H (None) /hpf Urine Mucus Rare H (None) /hpf 05/03/21 05/03/21 05/04/21 Range/Units 15:35 15:35 07:44 WBC (3.8-10.6) k/uL RBC (3.80-5.40) m/uL Hgb (11.4-16.0) gm/dL Hct (34.0-46.0) % Neutrophils # (1.3-7.7) k/uL APTT 21.9 L (22.0-30.0) sec Magnesium 1.4 L (1.6-2.3) mg/dL AST 56 H (14-36) U/L ALT 63 H (4-34) U/L Lactate Dehydrogenase 896 H (313-618) U/L Urine Protein (Negative) Urine Blood (Negative) Ur Leukocyte Esterase (Negative) Urine RBC (0-5) /hpf Urine WBC (0-5) /hpf Urine Bacteria (None) /hpf Urine Mucus (None) /hpf 05/04/21 Range/Units 07:44 WBC 11.7 H (3.8-10.6) k/uL RBC 3.59 L (3.80-5.40) m/uL Hgb 10.6 L (11.4-16.0) gm/dL Hct 31.7 L (34.0-46.0) % Neutrophils # 9.3 H (1.3-7.7) k/uL APTT (22.0-30.0) sec Magnesium (1.6-2.3) mg/dL AST (14-36) U/L ALT (4-34) U/L Lactate Dehydrogenase (313-618) U/L Urine Protein (Negative) Urine Blood (Negative) Ur Leukocyte Esterase (Negative) Urine RBC (0-5) /hpf Urine WBC (0-5) /hpf Urine Bacteria (None) /hpf Urine Mucus (None) /hpf Assessment and Plan Assessment: Status post primary low transverse section for delivery of twin gestation with bilateral partial's appendectomy postoperative day #1 Preeclampsia-on magnesium sulfate prophylaxis (1) Dichorionic diamniotic twin in third trimester Current Visit: Yes Status: Acute Code(s): O30.043 - TWIN , DICHORIONIC/DIAMNIOTIC, THIRD TRIMESTER SNOMED Code(s): 876572117 (2) Family planning Current Visit: Yes Status: Acute Code(s): Z30.09 - ENCOUNTER FOR OTH GENERAL CNSL AND ADVICE ON CONTRACEPTION SNOMED Code(s): 934868908 Plan: Will continue magnesium sulfate for 24 hours. Once this is discontinued, may advance diet as tolerated and remove Martin catheter. Will repeat liver enzymes tomorrow.
[2021-05-04] MEDS ORDERED: OXYTOCIN 30 UNITS/500 ML NS BAG IV ONE (15:47)
[2021-05-04] MEDS ORDERED: ONDANSETRON 4 MG/2 ML VIAL ONE (15:47)
[2021-05-04] MEDS ORDERED: MORPHINE SULFATE (PF) 0.3 MG/0.3 ML SYR ONE (15:47)
[2021-05-05] MEDS: ACETAMINOPHEN TAB 500 MG TAB PO SCH ×4 (02:27→21:42)
[2021-05-05] MEDS: IBUPROFEN 600 MG TAB PO SCH ×3 (05:39→18:58)
[2021-05-05 08:23] LABS: ALT 53 U/L (4-34); AST 33 U/L (14-36); LDH 916 U/L (313-618)
--- NOTE | 2021-05-05 08:52 | P.PNOBGPC ---
Subjective - Subjective Principal diagnosis: Status post primary section with TL POD #2 Interval history: Patient is feeling much better today. She is ambulating without difficulty. Her pain is fairly well controlled with ibuprofen and Tylenol. She is passing flatus but no bowel movement yet. She is urinating without difficulty. She is currently in the nursery feeding her baby's. Patient reports: Reports appetite normal, Reports voiding normally, Reports pain well controlled, Reports ambulating normally [place]: other (In level I nursery) Objective - Vital Signs Latest vital signs: Vital Signs Temp Pulse Resp BP Pulse Ox 05/05/21 07:59 98.7 F 82 18 138/90 99 05/05/21 05:56 75 15 134/84 96 05/05/21 04:00 98.4 F 82 16 137/81 98 05/05/21 02:00 68 15 134/83 98 05/05/21 00:00 97.4 F L 82 16 122/70 96 05/04/21 22:00 79 16 126/82 96 05/04/21 20:00 97.8 F 84 16 122/74 95 05/04/21 18:00 97.0 F L 84 18 132/82 98 05/04/21 17:00 97.1 F L 85 16 136/85 97 05/04/21 16:00 97.0 F L 73 16 129/83 97 05/04/21 15:31 97.5 F L 74 17 129/88 05/04/21 14:00 74 18 118/77 97 05/04/21 13:46 16 96 05/04/21 13:00 81 16 125/94 05/04/21 12:14 97.4 F L 78 18 125/75 94 L 05/04/21 12:00 18 05/04/21 11:00 82 18 122/84 96 05/04/21 10:00 89 16 140/87 98 05/04/21 09:00 97.9 F 85 18 127/82 98 Intake and Output 05/04/21 05/05/21 05/05/21 22:59 06:59 14:59 Intake Total 500 Output Total 1250 350 Balance -750 -350 Intake: Oral 500 Output: Urine 1250 350 Other: Voiding Method Indwelling Catheter # Voids 1 1 - Exam Extremities: Present: normal. Absent: tenderness, edema Abdomen: Present: normal appearance, soft (Positive bowel sounds 4). Absent: distention, tenderness Incision: Present: normal, dry, intact. Absent: erythematous Uterus: Present: normal, firm. Absent: tenderness - Labs Labs: Abnormal Lab Results - Last 24 Hours (Table) 05/05/21 Range/Units 07:40 ALT 53 H (4-34) U/L Lactate Dehydrogenase 916 H (313-618) U/L Assessment and Plan Assessment: Status post primary low transverse section with bilateral partial esophagectomy postoperative day #2 Preeclampsia-status post magnesium sulfate seizure prophylaxis, liver enzymes improving (1) Dichorionic diamniotic twin in third trimester Current Visit: Yes Status: Acute Code(s): O30.043 - TWIN , DICHORIONIC/DIAMNIOTIC, THIRD TRIMESTER SNOMED Code(s): 763326537 (2) Family planning Current Visit: Yes Status: Acute Code(s): Z30.09 - ENCOUNTER FOR OTH GENERAL CNSL AND ADVICE ON CONTRACEPTION SNOMED Code(s): 342744259 Plan: We'll continue with postoperative and care today. Will observe blood pressures today. Will continue to monitor liver enzymes.
[2021-05-05] MEDS: SENNOSIDES-DOCUSATE SODIUM 1 EACH TAB PO SCH ×2 (09:03→21:41)
[2021-05-05] MEDS: PRENATAL VIT-IRON-FOLIC ACID 1 EACH CAP PO SCH (10:47)
[2021-05-05 23:52] VITALS: RESP 16
[2021-05-06] MEDS: IBUPROFEN 600 MG TAB PO SCH ×3 (00:57→17:45)
[2021-05-06] MEDS: ACETAMINOPHEN TAB 500 MG TAB PO SCH ×3 (03:57→20:32)
[2021-05-06 06:55] LABS: ALT 45 U/L (4-34); AST 29 U/L (14-36); LDH 677 U/L (313-618)
--- NOTE | 2021-05-06 08:51 | P.PNOBGPC ---
Subjective - Subjective Principal diagnosis: Status post primary section with TL POD #3 Interval history: Patient is sore but states the pain medications are helping a little. She declines narcotics. Lochia is minimal. She is breast-feeding. She is passing flatus and bowel movement now. Patient reports: Reports appetite normal, Reports voiding normally, Reports pain well controlled, Reports ambulating normally [place]: other (In level I nursery) Objective - Vital Signs Latest vital signs: Vital Signs Temp Pulse Resp BP Pulse Ox 05/06/21 07:33 98.3 F 95 16 133/90 100 05/06/21 04:00 148/82 05/05/21 23:49 97.7 F 80 16 143/87 96 05/05/21 16:00 98.4 F 77 18 135/90 98 05/05/21 12:00 98.3 F 83 18 133/83 99 Intake and Output 05/05/21 05/06/21 05/06/21 22:59 06:59 14:59 Other: # Voids 2 2 1 - Exam Extremities: Present: normal. Absent: tenderness, edema Abdomen: Present: normal appearance, soft (Positive bowel sounds 4). Absent: distention, tenderness Incision: Present: normal, dry, intact. Absent: erythematous Uterus: Present: normal, firm. Absent: tenderness - Labs Labs: Abnormal Lab Results - Last 24 Hours (Table) 05/06/21 Range/Units 05:52 ALT 45 H (4-34) U/L Lactate Dehydrogenase 677 H (313-618) U/L Assessment and Plan Assessment: Status post primary low transverse section with bilateral partial esophagectomy postoperative day #3 Preeclampsia-status post magnesium sulfates either prophylaxis, mildly elevated blood pressures at this time (1) Dichorionic diamniotic twin in third trimester Current Visit: Yes Status: Acute Code(s): O30.043 - TWIN , DICHORIONIC/DIAMNIOTIC, THIRD TRIMESTER SNOMED Code(s): 229754381 (2) Family planning Current Visit: Yes Status: Acute Code(s): Z30.09 - ENCOUNTER FOR OTH GENERAL CNSL AND ADVICE ON CONTRACEPTION SNOMED Code(s): 944767586 Plan: Continue with postoperative and care at least 1 more day. We will order breast pump today.
[2021-05-06] MEDS: SENNOSIDES-DOCUSATE SODIUM 1 EACH TAB PO SCH ×3 (10:58→20:33)
[2021-05-06] MEDS: PRENATAL VIT-IRON-FOLIC ACID 1 EACH CAP PO SCH (18:14)
[2021-05-07] MEDS: ACETAMINOPHEN TAB 500 MG TAB PO SCH (07:03)
[2021-05-07] MEDS: IBUPROFEN 600 MG TAB PO SCH ×2 (07:03→08:56)
[2021-05-07 08:48] VITALS: BP 135/89; PULSE 113; TEMP 99.2
[2021-05-07] MEDS: SENNOSIDES-DOCUSATE SODIUM 1 EACH TAB PO SCH (08:53)
--- NOTE | 2021-05-07 12:43 | P.DS ---
Providers Date of admission: 05/03/21 14:19 Expected date of discharge: 05/07/21 Attending physician: Mariana Gutierrez Primary care physician: Stated None - Discharge Diagnosis(es) (1) Dichorionic diamniotic twin in third trimester Current Visit: Yes Status: Acute (2) Family planning Current Visit: Yes Status: Acute Hospital Course: This is a 25-year-old female 2 para 1 at 36 and one sevenths weeks with twin gestation who presented with advanced cervical dilation and was found to be in early active labor. In addition she started to have some increased blood pressures and did have some elevated liver enzymes. She underwent a primary low transverse section on 05/03/2021 and delivered 2 viable female infants, baby A was vertex with scores of 5 at 1 minute and 8 at 5 minutes and weight of 5 lbs. 1 oz., baby B was breech presentation with Apgars of 7 at 1 minute and 9 at 5 minutes and infant weight of 6 lbs. 5 oz. She was given magnesium sulfate seizure prophylaxis for 24 hours after delivery. Her blood pressures have been stable since that time. Liver enzymes have trended downward. Babies have been in level I nursery. She is breast-feeding. Lochia is decreasing. Her pain is fairly well controlled with ibuprofen and Tylenol. She is passing flatus and bowel movement. She is urinating without difficulty. Vital signs are stable with only mildly elevated blood pressures at times. Abdomen is soft with positive bowel sounds 4. Incision is clean dry and intact with samantha in place. Extremities show negative Homans. Impression is status post primary low transverse section with bilateral partial salpingectomy on 05/03/2021. Plan is to discharge home today. Routine postoperative and instructions are given. She is advised to follow up in the office in 1 week for a postoperative check and in 6 weeks for a check. She is advised to call the office if she has any further questions or concerns prior to her appointment times. Procedures: Primary low transverse section with bilateral partial salpingectomy on 05/03/2021. Patient Condition at Discharge: Stable Plan - Discharge Summary New Discharge Prescriptions: New Acetaminophen Tab [Tylenol] 1,000 mg PO Q6H tab Ibuprofen [Motrin] 600 mg PO Q6H #60 tab Continue Pnv No.95/Ferrous Fum/Folic AC [ Multivitamin Tablet] 1 tab PO DAILY No Action Albuterol Inhaler [Ventolin Hfa Inhaler] 1 puff INHALATION DIRECTED Discharge Medication List Pnv No.95/Ferrous Fum/Folic AC [ Multivitamin Tablet] 1 tab PO DAILY 02/07/21 [History] Albuterol Inhaler [Ventolin Hfa Inhaler] 1 puff INHALATION DIRECTED 03/25/21 [History] Acetaminophen Tab [Tylenol] 1,000 mg PO Q6H tab 05/07/21 [Rx] Ibuprofen [Motrin] 600 mg PO Q6H #60 tab 05/07/21 [Rx] Follow up Appointment(s)/Referral(s): Mariana Gutierrez DO [Doctor of Osteopathic Medicine] - 05/12/21 2:15 pm (6 Week follow up set for SundayJune 16 @11:30) Activity/Diet/Wound Care/Special Instructions: Instructions 1. Do not begin any exercise program for 3 weeks. 2. Do not resume sexual relations for 3 weeks or longer if uncomfortable. 3. You may take tub baths or showers at any time. 4. You may use tampons if desired after 3 weeks. 5. Keep the area of episiotomy (stitches) clean and dry. 6. If you are not nursing, wear a good fitting, supportive bra during the day and limit fluid intake for at least 1 week to prevent breast engorgement. 7. Call the office, [phone], within the next week to make appointment for your 6 week checkup if it has not already been made. 8. Report any of the following occurrences to the doctor promptly: a. Heavy, excessive bleeding b. Chills, fever c. Burning or frequency of urination d. Pain or redness and breasts if nursing e. Increasing pain or swelling in episiotomy (stitches). In addition to the above instructions, the following additional should be followed: 1. No heavy lifting or straining (exercising) until after 6 week checkup. 2. Keep abdominal incision clean and dry: You may wear a dressing if more comfortable. 3. Make office appointment for 10 days after going home or as instructed by her doctor. Discharge Disposition: HOME SELF-CARE
== END 2021-05-07 15:40 | disposition home or self-care (01) | DRG 785 ==
LOC: 4FBP 14:19
PROVIDERS: ADMIT Obstetrics & Gynecology; ATTEND Obstetrics & Gynecology
PROC: 10D00Z1 Extraction of Products of Conception, Low, Open Approach (ICD-10-PCS; principal; 2021-05-03 15:45)
PROC: 0UB70ZZ Excision of Bilateral Fallopian Tubes, Open Approach (ICD-10-PCS; principal; 2021-05-03 15:45)
DX: O30.043 Twin pregnancy, dichorionic/diamniotic, third trimester (principal); O14.94 Unspecified pre-eclampsia, complicating childbirth; Z37.2 Twins, both liveborn; O69.89X2 Labor and delivery complicated by other cord complications, fetus 2; O32.1XX2 Maternal care for breech presentation, fetus 2; Z3A.36 36 weeks gestation of pregnancy; Z30.2 Encounter for sterilization; O99.52 Diseases of the respiratory system complicating childbirth; J45.909 Unspecified asthma, uncomplicated; Z79.899 Other long term (current) drug therapy; Z87.442 Personal history of urinary calculi; Z91.030 Bee allergy status; Z91.018 Allergy to other foods; Z91.048 Other nonmedicinal substance allergy status; Z82.49 Family history of ischemic heart disease and other diseases of the circulatory system
CPT/HCPCS: 81001; 82565; 82570; 83615; 83735; 84156; 84450; 84460; 84520; 84550; 85025; 85610; 85730; 86850; 86900; 86901; 88302; 88307

== ENCOUNTER 2021-12-13 20:33 | Emergency (ER) | payer OTHER ==
[2021-12-13 20:59] VITALS: BP 134/100; PULSE 101; RESP 20; TEMP 97.8
--- NOTE | 2021-12-13 21:28 | ED ---
URI HPI - General Chief Complaint: Upper Respiratory Infection Stated Complaint: Runny nose,Cough Time Seen by Provider: 12/13/21 21:01 Source: patient, RN notes reviewed Mode of arrival: ambulatory Limitations: no limitations - History of Present Illness Initial Comments: This is a pleasant 26-year-old female presents to the emergency department complaining of runny nose, cough production for clear sputum. Patient states he symptoms been present for about 1 month. She states that both she and her daughter seemed to start having symptoms month ago, started to get better and then got worse again. There's been no shortness breath or chest pain. No known fever. Patient does have a history of asthma and uses albuterol as rescue inhaler. Nonsmoker. No headache, no fever or chills, no changes in vision or hearing, no sore throat or difficulty with speech, no neck pain, no chest pain or shortness of breath, no abdominal pain, no nausea or vomiting, no changes in urination or bowel movements, no numbness or tingling, no extremity pain, no skin rashes or lesions. Past medical, surgical, social, and family history reviewed. MD Complaint: cough, rhinorrhea, nasal congestion - Related Data Home Medications Medication Instructions Recorded Confirmed Pnv No.95/Ferrous Fum/Folic AC 1 tab PO DAILY 02/07/21 04/12/21 [ Multivitamin Tablet] Albuterol Inhaler [Ventolin Hfa 1 puff INHALATION DIRECTED 03/25/21 04/12/21 Inhaler] Previous Rx's Medication Instructions Recorded Acetaminophen Tab [Tylenol] 1,000 mg PO Q6H tab 05/07/21 Ibuprofen [Motrin] 600 mg PO Q6H #60 tab 05/07/21 Albuterol Inhaler [Ventolin Hfa 2 puff INHALATION Q4HR PRN #1 each 12/13/21 Inhaler] Allergies Allergy/AdvReac Type Severity Reaction Status Date / Time bee venom protein (honey bee) Allergy Swelling/Hi Verified 12/13/21 20:59 ves orange juice [[place]] Allergy Anaphylaxis Verified 12/13/21 20:59 pine trees Allergy Swelling/Hi Uncoded 12/13/21 20:59 ves Review of Systems ROS Statement: Those systems with pertinent positive or pertinent negative responses have been documented in the HPI. ROS Other: All systems not noted in ROS Statement are negative. Past Medical History Past Medical History: Asthma Additional Past Medical History / Comment(s): history of kidney stones per patient; patient's had a previous vaginal delivery. History of Any Multi-Drug Resistant Organisms: None Reported Past Surgical History: Appendectomy, Section, Tubal Ligation Past Anesthesia/Blood Transfusion Reactions: No Reported Reaction Past Psychological History: No Psychological Hx Reported Smoking Status: Never smoker Past Alcohol Use History: None Reported Past Drug Use History: None Reported - Past Family History Mother History Unknown: Yes Family Medical History: Hypertension General Exam - General Exam Comments Initial Comments: Nontoxic appearing female in no acute distress. Limitations: no limitations General appearance: alert, in no apparent distress Head exam: Present: atraumatic, normocephalic, normal inspection Eye exam: Present: normal appearance, PERRL, EOMI. Absent: scleral icterus, conjunctival injection, periorbital swelling ENT exam: Present: normal exam, normal oropharynx, mucous membranes moist, TM's normal bilaterally, normal external ear exam, other (Clear runny nose, no evidence of purulence. No sinus tenderness. Throat is clear). Absent: mucous membranes dry Neck exam: Present: normal inspection, full ROM. Absent: tenderness, meningismus, lymphadenopathy Respiratory exam: Present: normal lung sounds bilaterally. Absent: respiratory distress, wheezes, rales, rhonchi, stridor Cardiovascular Exam: Present: regular rate, normal rhythm, normal heart sounds. Absent: systolic murmur, diastolic murmur, rubs, gallop, clicks GI/Abdominal exam: Present: soft, normal bowel sounds. Absent: distended, tenderness, guarding, rebound, rigid Extremities exam: Present: normal inspection, full ROM, normal capillary refill. Absent: tenderness, pedal edema, joint swelling, calf tenderness Back exam: Present: normal inspection Neurological exam: Present: alert, oriented X3, CN II-XII intact Psychiatric exam: Present: normal affect, normal mood Skin exam: Present: warm, dry, intact, normal color. Absent: rash Course Vital Signs 12/13/21 20:56 Temperature 97.8 F Pulse Rate 101 H Respiratory 20 Rate Blood Pressure 134/100 O2 Sat by Pulse 98 Oximetry - Reevaluation(s) Reevaluation #1: 12/13/21 22:38 Medical record is reviewed Symptoms are essentially unchanged Patient is informed of results and questions answered Patient in no distress Medical Decision Making - Medical Decision Making Symptoms most consistent with a viral URI. Other viral etiology such as RSV or COVID-19 possible. Testing ordered by the triage nurse. We'll order a chest x- ray as the patient has had this cough for one month and has a history of asthma. However, patient had no adventitious lung sounds COVID-19 testing is negative. RSV testing negative. Influenza testing. Chest x-ray was clear. Patient symptomology most likely from a common cold such as rhinovirus or adenovirus. Discussed conservative therapy with patient. Patient was told to return to the ER for any signs or symptoms worsen. Told to return immediately if any other problems arise. All questions answered. Treatment plan discussed. Patient in agreement Every effort has been made to ensure accuracy of this dictation. However, due to the limitations of electronic medical records and dictation devices, errors in charting still occur. General Road Supervisor Dr. Loredo - Lab Data Lab Results 12/13/21 Range/Units 21:02 Influenza Type A (PCR) Not Detected (Not Detectd) Influenza Type B (PCR) Not Detected (Not Detectd) RSV (PCR) Not Detected (Not Detectd) SARS-CoV-2 (PCR) Not Detected (Not Detectd) - Radiology Data Radiology results: report reviewed, image reviewed Disposition Clinical Impression: Viral URI with cough Disposition: HOME SELF-CARE Condition: Good Instructions (If sedation given, give patient instructions): Upper Respiratory Infection (ED) Additional Instructions: Follow-up with your regular physician as directed. Return to the ER immediately if any symptoms worsen, new symptoms arise, or any other problems develop. Use [id number] acetaminophen and/or ibuprofen for general discomfort. Drink plenty of fluids. Most viruses go away in about 7-10 days. Follow-up with your regular physician as directed. Return to the ER immediately if any symptoms worsen, new symptoms arise, or any other problems develop. Prescriptions: Albuterol Inhaler [Ventolin Hfa Inhaler] 2 puff INHALATION Q4HR PRN #1 each PRN Reason: Wheezing Is patient prescribed a controlled substance at d/c from ED?: No Referrals: None,Stated [Primary Care Provider] - 1-2 days Time of Disposition: 22:37
--- NOTE | 2021-12-13 22:04 | XR ---
EXAMINATION TYPE: XR chest 2V DATE OF EXAM: 12/13/2021 COMPARISON: 12/13/2020 HISTORY: Cough TECHNIQUE: 2 views FINDINGS: Heart and mediastinum are normal. Lungs are clear. Diaphragm is normal. Bony thorax appears normal. IMPRESSION: Normal chest. No change.
== END 2021-12-13 22:52 | disposition home or self-care (01) ==
LOC: EC 20:33
DX: J06.9 Acute upper respiratory infection, unspecified (principal); J45.909 Unspecified asthma, uncomplicated; Z20.822 Contact with and (suspected) exposure to COVID-19; Z91.030 Bee allergy status; Z91.018 Allergy to other foods; Z79.51 Long term (current) use of inhaled steroids
CPT/HCPCS: 71046; 87636; 99283

== ENCOUNTER 2022-01-31 20:07 | Emergency (ER) | payer OTHER ==
[2022-01-31 20:13] VITALS: TEMP 98.1
[2022-01-31] MEDS ORDERED: IBUPROFEN 600 MG TAB PO STA (20:40)
[2022-01-31] MEDS ORDERED: ACETAMINOPHEN TAB 500 MG TAB PO STA (20:40)
--- NOTE | 2022-01-31 21:03 | ED ---
URI HPI - General Chief Complaint: Upper Respiratory Infection Stated Complaint: Fever,Sore throat Time Seen by Provider: 01/31/22 20:21 Source: patient, RN notes reviewed Mode of arrival: ambulatory Limitations: no limitations - History of Present Illness Initial Comments: This is a [id number] female who presents complaining of a sore throat, mild dry cough, fever, stuffy nose, and runny nose. Also exposed to her child with similar symptoms. She has been ill for the past one and half days. She did take antipyretics this morning. No shortness of breath. No abdominal pain. No nausea or vomiting. Both she and her child were exposed to RSV. no changes in vision or hearing, no sore throat or difficulty with speech, no neck pain, no chest pain or shortness of breath, no abdominal pain, no nausea or vomiting, no changes in urination or bowel movements, no numbness or tingling, no extremity pain, no skin rashes or lesions. Past medical, surgical, social, and family history reviewed. MD Complaint: fever, cough, sore throat, rhinorrhea, nasal congestion - Related Data Home Medications Medication Instructions Recorded Confirmed Pnv No.95/Ferrous Fum/Folic AC 1 tab PO DAILY 02/07/21 04/12/21 [ Multivitamin Tablet] Albuterol Inhaler [Ventolin Hfa 1 puff INHALATION DIRECTED 03/25/21 04/12/21 Inhaler] Previous Rx's Medication Instructions Recorded Acetaminophen Tab [Tylenol] 1,000 mg PO Q6H tab 05/07/21 Ibuprofen [Motrin] 600 mg PO Q6H #60 tab 05/07/21 Albuterol Inhaler [Ventolin Hfa 2 puff INHALATION Q4HR PRN #1 each 12/13/21 Inhaler] Allergies Allergy/AdvReac Type Severity Reaction Status Date / Time bee venom protein (honey bee) Allergy Swelling/Hi Verified 01/31/22 20:10 ves orange juice [[place]] Allergy Anaphylaxis Verified 01/31/22 20:10 pine trees Allergy Swelling/Hi Uncoded 01/31/22 20:10 ves Review of Systems ROS Statement: Those systems with pertinent positive or pertinent negative responses have been documented in the HPI. ROS Other: All systems not noted in ROS Statement are negative. Past Medical History Past Medical History: Asthma Additional Past Medical History / Comment(s): history of kidney stones per patient; patient's had a previous vaginal delivery. History of Any Multi-Drug Resistant Organisms: None Reported Past Surgical History: Appendectomy, Section, Tubal Ligation Past Anesthesia/Blood Transfusion Reactions: No Reported Reaction Past Psychological History: No Psychological Hx Reported Smoking Status: Never smoker Past Alcohol Use History: None Reported Past Drug Use History: None Reported - Past Family History Mother History Unknown: Yes Family Medical History: Hypertension General Exam - General Exam Comments Initial Comments: Does not appear to be ill or toxic. Limitations: no limitations General appearance: in distress (Minimal) Head exam: Present: atraumatic, normocephalic, normal inspection Eye exam: Present: normal appearance, PERRL, EOMI. Absent: scleral icterus, conjunctival injection, periorbital swelling ENT exam: Present: normal exam, normal oropharynx, mucous membranes moist, TM's normal bilaterally, normal external ear exam, other (Patient has a normal- appearing oropharynx. No tonsillar adenopathy or exudate. Airway is patent.). Absent: mucous membranes dry Neck exam: Present: normal inspection, full ROM. Absent: tenderness, meningismus, lymphadenopathy Respiratory exam: Present: normal lung sounds bilaterally. Absent: respiratory distress, wheezes, rales, rhonchi, stridor, chest wall tenderness, accessory muscle use, decreased breath sounds, prolonged expiratory Cardiovascular Exam: Present: normal rhythm, tachycardia, normal heart sounds. Absent: systolic murmur, diastolic murmur, rubs, gallop, clicks GI/Abdominal exam: Present: soft, normal bowel sounds. Absent: distended, tenderness, guarding, rebound, rigid Extremities exam: Present: normal inspection, full ROM, normal capillary refill. Absent: tenderness, pedal edema, joint swelling, calf tenderness Back exam: Present: normal inspection Neurological exam: Present: alert, oriented X3, CN II-XII intact Psychiatric exam: Present: normal affect, normal mood Skin exam: Present: warm, dry, intact, normal color. Absent: rash, cyanosis, diaphoretic, erythema, urticaria, petechiae, pallor, mottled Course Vital Signs 01/31/22 20:11 Temperature 98.1 F Pulse Rate 121 H Respiratory 18 Rate Blood Pressure 133/87 O2 Sat by Pulse 98 Oximetry - Reevaluation(s) Reevaluation #1: 01/31/22 21:53 Medical record is reviewed Symptoms are improved -- Patient is informed of results and questions answered Patient in no distressRepeat cardiopulmonary examination is essentially benign. No adventitious lung sounds. Heart rate now 96 by auscultation radial pulse. Patient no distress. Patient actually tested negative for COVID-19, RSV, and influenza. Also negative for streptococcus. However, patient's daughter tested positive for RSV. This patient did not tolerate the nasal swab very well. I suspect this is a false negative test given her symptomology. Patient in no respiratory distress with did discuss the utility of a chest x-ray. However the patient has no adventitious lung sounds. Patient discharged in stable condition. Medical Decision Making - Medical Decision Making Given the patient's symptomology, we will test the patient for RSV, COVID-19, influenza, and Streptococcus. Patient given a dose of ibuprofen and acetaminophen. Counseled on etiology and course of RSV. All questions answered. Understanding voiced. Patient was told to return to the ER for any signs or symptoms worsen. Told to return immediately if any other problems arise. All questions answered. Treatment plan discussed. Patient in agreement Every effort has been made to ensure accuracy of this dictation. However, due to the limitations of electronic medical records and dictation devices, errors in charting still occur. Supervising physician Dr. Barillas - Lab Data Lab Results 01/31/22 01/31/22 Range/Units 20:40 20:40 Influenza Type A (PCR) Not Detected (Not Detectd) Influenza Type B (PCR) Not Detected (Not Detectd) RSV (PCR) Not Detected (Not Detectd) SARS-CoV-2 (PCR) Not Detected (Not Detectd) Group A Strep (PCR) NOT DETECTED (Not Detectd) Disposition Clinical Impression: Viral URI, Respiratory syncytial virus Disposition: HOME SELF-CARE Condition: Good Instructions (If sedation given, give patient instructions): Upper Respiratory Infection (ED) Additional Instructions: Follow-up with your regular physician as directed. Return to the ER immediately if any symptoms worsen, new symptoms arise, or any other problems develop. Is patient prescribed a controlled substance at d/c from ED?: No Referrals: None,Stated [Primary Care Provider] - 1-2 days Time of Disposition: 21:50
[2022-01-31 21:58] VITALS: BP 130/80; PULSE 102; RESP 20
== END 2022-01-31 21:58 | disposition home or self-care (01) ==
LOC: EC 20:07
DX: J06.9 Acute upper respiratory infection, unspecified (principal); B97.4 Respiratory syncytial virus as the cause of diseases classified elsewhere; J45.909 Unspecified asthma, uncomplicated; Z91.030 Bee allergy status; Z91.018 Allergy to other foods; Z79.899 Other long term (current) drug therapy; Z20.822 Contact with and (suspected) exposure to COVID-19
CPT/HCPCS: 87636; 87651; 99283

== ENCOUNTER 2022-08-05 16:10 | Emergency (ER) | payer OTHER ==
--- NOTE | 2022-08-05 16:27 | ED ---
General Adult HPI - General Chief complaint: Extremity Injury, Upper Stated complaint: Left wrist injury Time Seen by Provider: 08/05/22 16:18 Source: patient, RN notes reviewed Mode of arrival: ambulatory Limitations: no limitations - History of Present Illness Initial comments: Patient is a pleasant 26-year-old female presenting to the emergency department with concerns for left wrist injury. Incident occurred prior to arrival. Patient was walking up a portion when she slipped. Patient landed on an outstretched left hand. Patient does have discomfort left wrist. Discomfort increases with movement. No history of chronic pain here. No other area of injury or concern. - Related Data Home Medications Medication Instructions Recorded Confirmed Pnv No.95/Ferrous Fum/Folic AC 1 tab PO DAILY 02/07/21 04/12/21 [ Multivitamin Tablet] Albuterol Inhaler [Ventolin Hfa 1 puff INHALATION DIRECTED 03/25/21 04/12/21 Inhaler] Previous Rx's Medication Instructions Recorded Acetaminophen Tab [Tylenol] 1,000 mg PO Q6H tab 05/07/21 Ibuprofen [Motrin] 600 mg PO Q6H #60 tab 05/07/21 Albuterol Inhaler [Ventolin Hfa 2 puff INHALATION Q4HR PRN #1 each 12/13/21 Inhaler] Allergies Allergy/AdvReac Type Severity Reaction Status Date / Time bee venom protein (honey bee) Allergy Swelling/Hi Verified 08/05/22 16:14 ves orange juice [[place]] Allergy Anaphylaxis Verified 08/05/22 16:14 pine trees Allergy Swelling/Hi Uncoded 08/05/22 16:14 ves Review of Systems ROS Statement: Those systems with pertinent positive or pertinent negative responses have been documented in the HPI. ROS Other: All systems not noted in ROS Statement are negative. Constitutional: Denies: fever Eyes: Denies: eye pain ENT: Denies: ear pain Respiratory: Denies: cough Cardiovascular: Denies: chest pain Endocrine: Denies: fatigue Gastrointestinal: Denies: abdominal pain Genitourinary: Denies: dysuria Musculoskeletal: Reports: as per HPI Past Medical History Past Medical History: Asthma Additional Past Medical History / Comment(s): history of kidney stones per pat ient; patient's had a previous vaginal delivery. History of Any Multi-Drug Resistant Organisms: None Reported Past Surgical History: Appendectomy, Section, Tubal Ligation Past Anesthesia/Blood Transfusion Reactions: No Reported Reaction Past Psychological History: No Psychological Hx Reported Smoking Status: Never smoker Past Alcohol Use History: None Reported Past Drug Use History: None Reported - Past Family History Mother History Unknown: Yes Family Medical History: Hypertension General Exam Limitations: no limitations General appearance: alert, in no apparent distress Head exam: Present: atraumatic Eye exam: Present: normal appearance Neck exam: Present: normal inspection. Absent: tenderness Respiratory exam: Present: normal lung sounds bilaterally Cardiovascular Exam: Present: regular rate, normal rhythm Expanded Peripheral pulses: 2+: Radial (L) GI/Abdominal exam: Present: soft. Absent: tenderness Left Forearm Wrist exam: Absent: tenderness over anatomical snuff box Hand Wrist exam: Present: tenderness (Mild mid wrist), swelling (Minimal), other (Distally the extremity is neurovascular intact.) Neurological exam: Present: alert. Absent: motor sensory deficit Psychiatric exam: Present: normal affect, normal mood Skin exam: Present: normal color. Absent: rash Course Vital Signs 08/05/22 16:11 Temperature 97.4 F L Pulse Rate 114 H Respiratory 20 Rate Blood Pressure 131/78 O2 Sat by Pulse 99 Oximetry Procedures - Orthopedic Splinting/Casting Injury #1 Side: left Upper Extremity Injury Location: short arm Upper Extremity Immobilizer: volar splint Medical Decision Making - Medical Decision Making Was pt. sent in by a medical professional or institution ([facility], LOAD OUT WORKER, urgent care, hospital, or correction...) When possible be specific @ -[No] Did you speak to anyone other than the patient for history (EMS, parent, family, police, friend...)? What history was obtained from this source @ -[No] Did you review nursing and triage notes (agree or disagree)? Why? @ -[I reviewed and agree with nursing and triage notes] Were old charts reviewed (outside hosp., previous admission, EMS record, old EKG, old radiological studies, urgent care reports/EKG's, correction records)? Report findings @ -[No old charts were reviewed] Differential Diagnosis (chest pain, altered mental status, abdominal pain women, abdominal pain men, vaginal bleeding, weakness, fever, dyspnea, syncope, headache, dizziness, GI bleed, back pain, seizure, CVA, palpatations, mental health)? @ -[not applicable] EKG interpreted by me (3pts min.). @ -[As above] X-rays interpreted by me (1pt min.). @ -X-ray left wrist shows no acute process CT interpreted by me (1pt min.). @ -[None done] U/S interpreted by me (1pt. min.). @ -[None done] What testing was considered but not performed or refused? (CT, X-rays, U/S, labs)? Why? @ -[None] What meds were considered but not given or refused? Why? @ -[None] Did you discuss the management of the patient with other professionals (professionals i.e. Dr., PA, LOAD OUT WORKER, lab, RT, psych nurse, social staff worker, barrel tester and drainer, teacher, dairy quality assurance officer, pillowcase cutter)? Give summary @ -[No] Was smoking cessation discussed for >3mins.? @ -[No] Was critical care preformed (if so, how long)? @ -[No] Were there social determinants of health that impacted care today? How? (Homelessness, low income, unemployed, alcoholism, drug addiction, transportation, low edu. Level, literacy, decrease access to med. care, group home, rehab)? @ -[No] Was there de-escalation of care discussed even if they declined (Discuss DNR or withdrawal of care, Hospice)? DNR status @ -[No] What co-morbidities impacted this encounter? (DM, HTN, Smoking, COPD, CAD, Cancer, CVA, ARF, Chemo, Hep., AIDS, mental health diagnosis, sleep apnea, morbid obesity)? @ -[None] Was patient admitted / discharged? Hospital course, mention meds given and route, prescriptions, significant lab abnormalities, going to OR and other pertinent info. @ -Patient reevaluated. Patient updated. Splint placed. Patient will be discharged with follow-up. Undiagnosed new problem with uncertain prognosis? @ -[No] Drug Therapy requiring intensive monitoring for toxicity (Heparin, Nitro, Insulin, Cardizem)? @ -[No] Were any procedures done? @ -splint Diagnosis/symptom? @ -Left wrist sprain Acute, or Chronic, or Acute on Chronic? @ -Acute Uncomplicated (without systemic symptoms) or Complicated (systemic symptoms)? @ -[default] Side effects of treatment? @ -[No] Exacerbation, Progression, or Severe Exacerbation? @ -[No] Poses a threat to life or bodily function? How? (Chest pain, USA, DC, pneumonia, PE, COPD, DKA, ARF, appy, cholecystitis, CVA, Diverticulitis, Homicidal, Suicidal, threat to staff... and all critical care pts) @ -[No] Disposition Clinical Impression: Wrist sprain Disposition: HOME SELF-CARE Condition: Stable Instructions (If sedation given, give patient instructions): Wrist Injury (ED) Additional Instructions: Ice to affected area. [id number] Tylenol or Motrin as needed. Return for increased pain, swelling, hand problems, worsening symptoms or other concerns. Please follow-up with primary care physician or orthopedics within the week. If symptoms continue you may need repeat x-rays. Is patient prescribed a controlled substance at d/c from ED?: No Referrals: Efren Chaves MD [STAFF PHYSICIAN] - 1-2 days Time of Disposition: 17:54
--- NOTE | 2022-08-05 17:09 | XR ---
EXAMINATION TYPE: XR wrist complete LT DATE OF EXAM: 08/05/2022 4:36 PM INDICATION: Patient age:Female; 26 years old; Reason for study: fall; [facility]. COMPARISON: Left wrist radiographs 06/12/2012 TECHNIQUE: 4 views of the left wrist. Frontal, navicular, lateral, and oblique. FINDINGS: No acute osseous pathology, joint dislocation, or joint effusion. No evidence of any soft tissue swelling is seen. IMPRESSION: No acute osseous pathology.
[2022-08-05 18:03] VITALS: BP 138/89; PULSE 109; RESP 16; TEMP 97.7
== END 2022-08-05 18:03 | disposition home or self-care (01) ==
LOC: EC 16:10
DX: S63.502A Unspecified sprain of left wrist, initial encounter (principal); J45.909 Unspecified asthma, uncomplicated; Z79.899 Other long term (current) drug therapy; Z91.030 Bee allergy status; Z91.018 Allergy to other foods; Z91.09 Other allergy status, other than to drugs and biological substances; W01.0XXA Fall on same level from slipping, tripping and stumbling without subsequent striking against object, initial encounter; Y93.01 Activity, walking, marching and hiking
CPT/HCPCS: 29125; 99283

== ENCOUNTER 2023-01-07 23:05 | Emergency (ER) | payer OTHER ==
[2023-01-07 23:37] VITALS: RESP 18
[2023-01-08] LABS: Basophils % (A) 0 %; Eosinophils # (A) 0.2 k/uL (0-0.7); Eosinophils % (A) 2 %; HCT 41.9 % (34.0-46.0); HGB 13.4 gm/dL (11.4-16.0); Lymphocytes # (A) 2.4 k/uL (1.0-4.8); Lymphocytes % (A) 24 %; MCV 81.5 fL (80.0-100.0); Mean Platelet Volume 8.6; Monocytes # (A) 0.4 k/uL (0-1.0); Monocytes % (A) 4 %; Neutrophils # (A) 6.9 k/uL (1.3-7.7); Neutrophils % (A) 68 %; Platelet Count 317 k/uL (150-450); RBC 5.15 m/uL (3.80-5.40); RDW 13.6 % (11.5-15.5); WBC 10.1 k/uL (3.8-10.6)
[2023-01-08 00:08] LABS: Appearance,Urine Cloudy (Clear); Bacteria,Urine Rare /hpf; Bilirubin,Urine Negative (Negative); Blood,Urine Trace (Negative); Color,Urine Colorless; Glucose,Urine (UA) Negative (Negative); Ketones,Urine Negative (Negative); Leukocyte Esterase,Urine Large (Negative); Mucus,Urine Rare /hpf; Nitrite,Urine Negative (Negative); Protein,Urine Negative (Negative); RBC,Urine 1 /hpf (0-5); Squamous Epithelial Cell,Urine 4 /hpf (0-4); Urobilinogen,Urine <2.0 mg/dL (<2.0); WBC,Urine 35 /hpf (0-5)
--- NOTE | 2023-01-08 00:10 | ED ---
Back Pain HPI - General Source: patient, RN notes reviewed Limitations: no limitations <Kinza Haynes - Last Filed: 01/08/23 00:08> <Lei Taveras - Last Filed: 01/08/23 01:40> - General Chief Complaint: Back Pain/Injury Stated Complaint: Lower Back Pain Time Seen by Provider: 01/08/23 00:08 - History of Present Illness Initial Comments: Patient is a 27-year-old female who presents the emergency department for right back pain and burning with urination. Patient has history of previous kidney stone states she cannot remember what it felt like. (Kinza Haynes) - Related Data Home Medications Medication Instructions Recorded Confirmed Pnv No.95/Ferrous Fum/Folic AC 1 tab PO DAILY 02/07/21 04/12/21 [ Multivitamin Tablet] Albuterol Inhaler [Ventolin Hfa 1 puff INHALATION DIRECTED 03/25/21 04/12/21 Inhaler] Previous Rx's Medication Instructions Recorded Acetaminophen Tab [Tylenol] 1,000 mg PO Q6H tab 05/07/21 Ibuprofen [Motrin] 600 mg PO Q6H #60 tab 05/07/21 Albuterol Inhaler [Ventolin Hfa 2 puff INHALATION Q4HR PRN #1 each 12/13/21 Inhaler] Cephalexin [Keflex] 500 mg PO Q6HR #12 cap 01/08/23 Allergies Allergy/AdvReac Type Severity Reaction Status Date / Time bee venom protein (honey bee) Allergy Swelling/Hi Verified 01/07/23 23:26 ves orange juice [[place]] Allergy Anaphylaxis Verified 01/07/23 23:26 pine trees Allergy Swelling/Hi Uncoded 01/07/23 23:26 ves Review of Systems ROS Other: All systems not noted in ROS Statement are negative. <Kinza Haynes - Last Filed: 01/08/23 00:08> ROS Other: All systems not noted in ROS Statement are negative. <Lei Taveras - Last Filed: 01/08/23 01:40> ROS Statement: Those systems with pertinent positive or pertinent negative responses have been documented in the HPI. Past Medical History Past Medical History: Asthma Additional Past Medical History / Comment(s): history of kidney stones per patient; patient's had a previous vaginal delivery. History of Any Multi-Drug Resistant Organisms: None Reported Past Surgical History: Appendectomy, Section, Tubal Ligation Past Anesthesia/Blood Transfusion Reactions: No Reported Reaction Past Psychological History: No Psychological Hx Reported Smoking Status: Never smoker Past Alcohol Use History: None Reported Past Drug Use History: None Reported - Past Family History Mother History Unknown: Yes Family Medical History: Hypertension <Kinza Haynes - Last Filed: 01/08/23 00:08> General Exam Limitations: no limitations <Kinza Haynes - Last Filed: 01/08/23 00:08> - General Exam Comments Initial Comments: Visual Physical Exam Vital signs reviewed General: Well-appearing, nontoxic, no acute distress. Head: Normocephalic, atraumatic Eyes: PERRLA, EOMI ENT: Airway patent Chest: Nonlabored breathing Skin: No visual rash, normal skin tone Neuro: Alert and oriented 3 Musculoskeletal: No gross abnormalities (Kinza Haynes) Course Vital Signs 01/07/23 01/08/23 23:23 01:36 Temperature 98.1 F 98.8 F Pulse Rate 88 90 Respiratory 18 18 Rate Blood Pressure 125/93 106/68 O2 Sat by Pulse 98 99 Oximetry Medical Decision Making - Lab Data Result diagrams: 01/07/23 23:34 <Kinza Haynes - Last Filed: 01/08/23 00:08> - Lab Data Result diagrams: 01/07/23 23:34 01/07/23 23:34 <Lei Taveras - Last Filed: 01/08/23 01:40> - Medical Decision Making I performed the QuickNote portion of this chart - Kinza Haynes PA-C (Kinza Haynes) - Lab Data Lab Results 01/07/23 01/07/23 01/07/23 Range/Units 23:34 23:34 23:34 WBC 10.1 (3.8-10.6) k/uL RBC 5.15 (3.80-5.40) m/uL Hgb 13.4 (11.4-16.0) gm/dL Hct 41.9 (34.0-46.0) % MCV 81.5 (80.0-100.0) fL MCH 26.0 (25.0-35.0) pg MCHC 32.0 (31.0-37.0) g/dL RDW 13.6 (11.5-15.5) % Plt Count 317 (150-450) k/uL MPV 8.6 Neutrophils % 68 % Lymphocytes % 24 % Monocytes % 4 % Eosinophils % 2 % Basophils % 0 % Neutrophils # 6.9 (1.3-7.7) k/uL Lymphocytes # 2.4 (1.0-4.8) k/uL Monocytes # 0.4 (0-1.0) k/uL Eosinophils # 0.2 (0-0.7) k/uL Basophils # 0.0 (0-0.2) k/uL Sodium (137-145) mmol/L Potassium (3.5-5.1) mmol/L Chloride (98-107) mmol/L Carbon Dioxide (22-30) mmol/L Anion Gap mmol/L BUN (7-17) mg/dL Creatinine (0.52-1.04) mg/dL Est GFR (CKD-EPI)AfAm (>60 ml/min/1.73 sqM) Est GFR (CKD-EPI)NonAf (>60 ml/min/1.73 sqM) Glucose (74-99) mg/dL Calcium (8.4-10.2) mg/dL Total Bilirubin (0.2-1.3) mg/dL AST (14-36) U/L ALT (4-34) U/L Alkaline Phosphatase (38-126) U/L Total Protein (6.3-8.2) g/dL Albumin (3.5-5.0) g/dL Urine Color Colorless Urine Appearance Cloudy H (Clear) Urine pH 7.0 (5.0-8.0) Ur Specific [place] 1.010 (1.001-1.035) Urine Protein Negative (Negative) Urine Glucose (UA) Negative (Negative) Urine Ketones Negative (Negative) Urine Blood Trace H (Negative) Urine Nitrite Negative (Negative) Urine Bilirubin Negative (Negative) Urine Urobilinogen <2.0 (<2.0) mg/dL Ur Leukocyte Esterase Large H (Negative) Urine RBC 1 (0-5) /hpf Urine WBC 35 H (0-5) /hpf Ur Squamous Epith Cells 4 (0-4) /hpf Urine Bacteria Rare H (None) /hpf Urine Mucus Rare H (None) /hpf Urine HCG, Qual Not Detected (Not Detectd) 01/07/23 Range/Units 23:34 WBC (3.8-10.6) k/uL RBC (3.80-5.40) m/uL Hgb (11.4-16.0) gm/dL Hct (34.0-46.0) % MCV (80.0-100.0) fL MCH (25.0-35.0) pg MCHC (31.0-37.0) g/dL RDW (11.5-15.5) % Plt Count (150-450) k/uL MPV Neutrophils % % Lymphocytes % % Monocytes % % Eosinophils % % Basophils % % Neutrophils # (1.3-7.7) k/uL Lymphocytes # (1.0-4.8) k/uL Monocytes # (0-1.0) k/uL Eosinophils # (0-0.7) k/uL Basophils # (0-0.2) k/uL Sodium 138 (137-145) mmol/L Potassium 5.2 H (3.5-5.1) mmol/L Chloride 107 (98-107) mmol/L Carbon Dioxide 21 L (22-30) mmol/L Anion Gap 10 mmol/L BUN 12 (7-17) mg/dL Creatinine 0.68 (0.52-1.04) mg/dL Est GFR (CKD-EPI)AfAm >90 (>60 ml/min/1.73 sqM) Est GFR (CKD-EPI)NonAf >90 (>60 ml/min/1.73 sqM) Glucose 106 H (74-99) mg/dL Calcium 9.2 (8.4-10.2) mg/dL Total Bilirubin 0.9 (0.2-1.3) mg/dL AST 94 H (14-36) U/L ALT 97 H (4-34) U/L Alkaline Phosphatase 99 (38-126) U/L Total Protein 7.8 (6.3-8.2) g/dL Albumin 4.5 (3.5-5.0) g/dL Urine Color Urine Appearance (Clear) Urine pH (5.0-8.0) Ur Specific [place] (1.001-1.035) Urine Protein (Negative) Urine Glucose (UA) (Negative) Urine Ketones (Negative) Urine Blood (Negative) Urine Nitrite (Negative) Urine Bilirubin (Negative) Urine Urobilinogen (<2.0) mg/dL Ur Leukocyte Esterase (Negative) Urine RBC (0-5) /hpf Urine WBC (0-5) /hpf Ur Squamous Epith Cells (0-4) /hpf Urine Bacteria (None) /hpf Urine Mucus (None) /hpf Urine HCG, Qual (Not Detectd) Disposition <Kinza Haynes - Last Filed: 01/08/23 00:08> Is patient prescribed a controlled substance at d/c from ED?: No <Lei Taveras - Last Filed: 01/08/23 01:40> Clinical Impression: Urinary tract infection, Transaminitis Disposition: HOME SELF-CARE Condition: Good Instructions (If sedation given, give patient instructions): Urinary Tract Infection in Women (ED) Additional Instructions: As we discussed, your liver enzymes are elevated. You should have a recheck in 5 days ensure that they are not increasing. Follow-up with your physician. Return here if there is any difficulty. Prescriptions: Cephalexin [Keflex] 500 mg PO Q6HR #12 cap Referrals: None,Stated [Primary Care Provider] - 1-2 days Gilmar Camacho MD [REFERRING] - 1-2 days
[2023-01-08 00:49] LABS: ALT 97 U/L (4-34); African American GFR (CKD) >90 (>60 ml/min/1.73 sqM); Anion Gap 10 mmol/L; Blood Urea Nitrogen 12 mg/dL (7-17); Calcium 9.2 mg/dL (8.4-10.2); Carbon Dioxide 21 mmol/L (22-30); Chloride 107 mmol/L (98-107); Glucose 106 mg/dL (74-99); Non-African American GFR(CKD) >90 (>60 ml/min/1.73 sqM); Sodium 138 mmol/L (137-145)
[2023-01-08 00:57] LABS: Potassium 5.2 mmol/L (3.5-5.1)
[2023-01-08 00:58] LABS: AST 94 U/L (14-36); Albumin 4.5 g/dL (3.5-5.0); Alkaline Phosphatase 99 U/L (38-126); Total Bilirubin 0.9 mg/dL (0.2-1.3); Total Protein 7.8 g/dL (6.3-8.2)
[2023-01-08] MEDS ORDERED: CEPHALEXIN 500 MG CAP PO STA (01:37)
[2023-01-08 01:58] VITALS: BP 106/68; PULSE 90; TEMP 98.8
== END 2023-01-08 01:54 | disposition home or self-care (01) ==
LOC: EC 23:05
DX: N39.0 Urinary tract infection, site not specified (principal); R74.01 Elevation of levels of liver transaminase levels; J45.909 Unspecified asthma, uncomplicated; Z91.030 Bee allergy status; Z91.018 Allergy to other foods; Z79.899 Other long term (current) drug therapy
CPT/HCPCS: 36415; 80053; 81001; 81025; 85025; 87086; 99283

== ENCOUNTER 2023-07-10 14:11 | Emergency (ER) | payer OTHER ==
--- NOTE | 2023-07-10 14:53 | ED ---
Abdominal Pain HPI - General Source: patient, RN notes reviewed Mode of arrival: ambulatory Limitations: no limitations <Yamila Turner - Last Filed: 07/10/23 14:51> <Chilo Victor - Last Filed: 07/10/23 16:14> - General Chief Complaint: Abdominal Pain Stated Complaint: Vomiting Time Seen by Provider: 07/10/23 14:30 - History of Present Illness Initial Comments: Quick [id number] female with history of tubal ligation presenting with lower abdominal cramping since yesterday with associated vaginal bleeding. Patient states last menstrual period was 07-01-2023. (Yamila Turner) 27-year-old female presenting for evaluation of bilateral lower abdominal pain. She describes this is cramping. No associated fever. No associated diarrhea. No dysuria or hematuria. Denies current , stating her last menstrual period was approximately 1 week ago. She did report light vaginal spotting. She has had previous tubal ligation. She cannot lateralize this pain. She has previous history of appendectomy. (Chilo Victor) - Related Data Home Medications Medication Instructions Recorded Confirmed Pnv No.95/Ferrous Fum/Folic AC 1 tab PO DAILY 02/07/21 04/12/21 [ Multivitamin Tablet] Albuterol Inhaler [Ventolin Hfa 1 puff INHALATION DIRECTED 03/25/21 04/12/21 Inhaler] Previous Rx's Medication Instructions Recorded Acetaminophen Tab [Tylenol] 1,000 mg PO Q6H tab 05/07/21 Ibuprofen [Motrin] 600 mg PO Q6H #60 tab 05/07/21 Albuterol Inhaler [Ventolin Hfa 2 puff INHALATION Q4HR PRN #1 each 12/13/21 Inhaler] Cephalexin [Keflex] 500 mg PO Q6HR #12 cap 01/08/23 Cephalexin [Keflex] 500 mg PO Q12HR #20 cap 07/10/23 Allergies Allergy/AdvReac Type Severity Reaction Status Date / Time bee venom protein (honey bee) Allergy Swelling/Hi Verified 07/10/23 14:24 ves orange juice [[place]] Allergy Anaphylaxis Verified 07/10/23 14:24 pine trees Allergy Swelling/Hi Uncoded 07/10/23 14:24 ves Review of Systems ROS Other: All systems not noted in ROS Statement are negative. <Yamila Turner - Last Filed: 07/10/23 14:51> ROS Other: All systems not noted in ROS Statement are negative. <Chilo Victor - Last Filed: 07/10/23 16:14> ROS Statement: Those systems with pertinent positive or pertinent negative responses have been documented in the HPI. Past Medical History Past Medical History: Asthma Additional Past Medical History / Comment(s): history of kidney stones per patient; patient's had a previous vaginal delivery. History of Any Multi-Drug Resistant Organisms: None Reported Past Surgical History: Appendectomy, Section, Tubal Ligation Past Anesthesia/Blood Transfusion Reactions: No Reported Reaction Past Psychological History: PTSD Smoking Status: Never smoker Past Alcohol Use History: None Reported Past Drug Use History: None Reported - Past Family History Mother History Unknown: Yes Family Medical History: Hypertension <Yamila Turner - Last Filed: 07/10/23 14:51> General Exam Limitations: no limitations <Yamila Turner - Last Filed: 07/10/23 14:51> General appearance: alert, in no apparent distress Head exam: Present: atraumatic, normocephalic Eye exam: Present: normal appearance, PERRL ENT exam: Present: normal exam Neck exam: Present: normal inspection. Absent: tenderness, meningismus Respiratory exam: Present: normal lung sounds bilaterally. Absent: respiratory distress, wheezes, rales Cardiovascular Exam: Present: regular rate, normal rhythm GI/Abdominal exam: Present: soft, other (No focal tenderness, no rebound or guarding). Absent: distended, tenderness, guarding, rebound Neurological exam: Present: alert, oriented X3 Psychiatric exam: Present: normal affect, normal mood Skin exam: Present: warm <Chilo Victor - Last Filed: 07/10/23 16:14> - General Exam Comments Initial Comments: Visual Physical Exam Vital signs reviewed General: Well-appearing, nontoxic, no acute distress. Head: Normocephalic, atraumatic Eyes: PERRLA, EOMI ENT: Airway patent Chest: Nonlabored breathing Skin: No visual rash, normal skin tone Neuro: Alert and oriented 3 Musculoskeletal: No gross abnormalities (Yamila Turner) Course Vital Signs 07/10/23 14:18 Temperature 97.8 F Pulse Rate 101 H Respiratory 96 H Rate Blood Pressure 151/104 O2 Sat by Pulse 98 Oximetry Medical Decision Making <JohnnyYamila - Last Filed: 07/10/23 14:51> - Lab Data Result diagrams: 07/10/23 15:29 <Chilo Victor - Last Filed: 07/10/23 16:14> - Medical Decision Making I completed the quick note portion of this chart signed Yamila Turner PA-C (Yamila Turner) Was pt. sent in by a medical professional or institution ([facility]psey, LAUNDROMAT MANAGER, urgent care, hospital, or jail...) When possible be specific @ -No Did you speak to anyone other than the patient for history (EMS, parent, family, police, friend...)? What history was obtained from this source @ -No Did you review nursing and triage notes (agree or disagree)? Why? @ -I reviewed and agree with nursing and triage notes Were old charts reviewed (outside hosp., previous admission, EMS record, old EKG, old radiological studies, urgent care reports/EKG's, jail records)? Report findings @ -No old charts were reviewed Differential Abdominal Pain Women: Appendicitis, Cholecystitis, diverticulosis, ischemic bowel, pancreatitis, hepatitis, UTI, gastroenteritis, AAA, incarcerated hernia, bowel obstruction, constipation, inflammatory bowel, hepatitis, peptic ulcer disease, splenic in farction, perforated viscus, vulvitis, ovarian torsion, PID, kidney stone, placenta abruption, this is not meant to be an all-inclusive list EKG interpreted by me (3pts min.). @ -As above X-rays interpreted by me (1pt min.). @ -None done CT interpreted by me (1pt min.). @ -None done U/S interpreted by me (1pt. min.). @ -None done What testing was considered but not performed or refused? (CT, X-rays, U/S, labs)? Why? @ -None What meds were considered but not given or refused? Why? @ -None Did you discuss the management of the patient with other professionals (professionals i.e. [facility] Dempsey, LAUNDROMAT MANAGER, lab, RT, psych nurse, social work coordinator, bell captain, teacher, ground nuclear weapons assembly officer, disability case manager)? Give summary @ -No Was smoking cessation discussed for >3mins.? @ -No Was critical care preformed (if so, how long)? @ -No Were there social determinants of health that impacted care today? How? (Homelessness, low income, unemployed, alcoholism, drug addiction, transportation, low edu. Level, literacy, decrease access to med. care, senior living, rehab)? @ -No Was there de-escalation of care discussed even if they declined (Discuss DNR or withdrawal of care, Hospice)? DNR status @ -No What co-morbidities impacted this encounter? (DM, HTN, Smoking, COPD, CAD, Cancer, CVA, ARF, Chemo, Hep., AIDS, mental health diagnosis, sleep apnea, morbid obesity)? @ -None Was patient admitted / discharged? Hospital course, mention meds given and route, prescriptions, significant lab abnormalities, going to OR and other pertinent info. @ -27-year-old female presenting with lower abdominal pain. No fever. No change in bowels. No vomiting. She has no tenderness on exam. Stable vitals. Normal CBC, normal CMP, urinalysis is consistent with UTI, 100 white cells and rare bacteria. Urine culture is obtained. Patient started on antibiotics. She is given return parameters including worsening pain, fever. Stable for discharge at this time. Undiagnosed new problem with uncertain prognosis? @ -No Drug Therapy requiring intensive monitoring for toxicity (Heparin, Nitro, Insulin, Cardizem)? @ -No Were any procedures done? @ -No Diagnosis/symptom? @ -Abdominal pain, UTI Acute, or Chronic, or Acute on Chronic? @ -Acute Uncomplicated (without systemic symptoms) or Complicated (systemic symptoms)? @ -Default Side effects of treatment? @ -No Exacerbation, Progression, or Severe Exacerbation? @ -No Poses a threat to life or bodily function? How? (Chest pain, [place], [place], pneumonia, PE, COPD, DKA, ARF, appy, cholecystitis, CVA, Diverticulitis, Homicidal, Suicidal, threat to staff... and all critical care pts) @ -Low risk at this time (Chilo Victor) - Lab Data Lab Results 07/10/23 07/10/23 07/10/23 Range/Units 15:23 15:23 15:29 WBC 10.4 (3.8-10.6) k/uL RBC 4.44 (3.80-5.40) m/uL Hgb 12.8 (11.4-16.0) gm/dL Hct 37.9 (34.0-46.0) % MCV 85.4 (80.0-100.0) fL MCH 28.9 (25.0-35.0) pg MCHC 33.9 (31.0-37.0) g/dL RDW 13.5 (11.5-15.5) % Plt Count 346 (150-450) k/uL MPV 8.8 Neutrophils % 66 % Lymphocytes % 24 % Monocytes % 5 % Eosinophils % 2 % Basophils % 1 % Neutrophils # 6.9 (1.3-7.7) k/uL Lymphocytes # 2.5 (1.0-4.8) k/uL Monocytes # 0.6 (0-1.0) k/uL Eosinophils # 0.2 (0-0.7) k/uL Basophils # 0.1 (0-0.2) k/uL Plasma Lactic Acid Davian (0.7-2.0) mmol/L Urine Color Colorless Urine Appearance Cloudy H (Clear) Urine pH 6.0 (5.0-8.0) Ur Specific [place] 1.017 (1.001-1.035) Urine Protein Trace H (Negative) Urine Glucose (UA) Negative (Negative) Urine Ketones Negative (Negative) Urine Blood Small H (Negative) Urine Nitrite Negative (Negative) Urine Bilirubin Negative (Negative) Urine Urobilinogen <2.0 (<2.0) mg/dL Ur Leukocyte Esterase Large H (Negative) Urine RBC 30 H (0-5) /hpf Urine WBC 101 H (0-5) /hpf Ur Squamous Epith Cells 22 H (0-4) /hpf Urine Bacteria Rare H (None) /hpf Urine Mucus Occasional H (None) /hpf Urine HCG, Qual Not Detected (Not Detectd) 07/10/23 Range/Units 15:29 WBC (3.8-10.6) k/uL RBC (3.80-5.40) m/uL Hgb (11.4-16.0) gm/dL Hct (34.0-46.0) % MCV (80.0-100.0) fL MCH (25.0-35.0) pg MCHC (31.0-37.0) g/dL RDW (11.5-15.5) % Plt Count (150-450) k/uL MPV Neutrophils % % Lymphocytes % % Monocytes % % Eosinophils % % Basophils % % Neutrophils # (1.3-7.7) k/uL Lymphocytes # (1.0-4.8) k/uL Monocytes # (0-1.0) k/uL Eosinophils # (0-0.7) k/uL Basophils # (0-0.2) k/uL Plasma Lactic Acid Davian 1.2 (0.7-2.0) mmol/L Urine Color Urine Appearance (Clear) Urine pH (5.0-8.0) Ur Specific Isom (1.001-1.035) Urine Protein (Negative) Urine Glucose (UA) (Negative) Urine Ketones (Negative) Urine Blood (Negative) Urine Nitrite (Negative) Urine Bilirubin (Negative) Urine Urobilinogen (<2.0) mg/dL Ur Leukocyte Esterase (Negative) Urine RBC (0-5) /hpf Urine WBC (0-5) /hpf Ur Squamous Epith Cells (0-4) /hpf Urine Bacteria (None) /hpf Urine Mucus (None) /hpf Urine HCG, Qual (Not Detectd) Disposition <Yaimla Turner - Last Filed: 07/10/23 14:51> Is patient prescribed a controlled substance at d/c from ED?: No Time of Disposition: 16:11 <Chilo Victor - Last Filed: 07/10/23 16:14> Clinical Impression: Abdominal pain, UTI (urinary tract infection) Disposition: HOME SELF-CARE Condition: Fair Instructions (If sedation given, give patient instructions): Abdominal Pain (ED), Urinary Tract Infection in Women (ED) Prescriptions: Cephalexin [Keflex] 500 mg PO Q12HR #20 cap Referrals: None,Stated [Primary Care Provider] - 1-2 days
[2023-07-10 15:51] LABS: Basophils # (A) 0.1 k/uL (0-0.2); Basophils % (A) 1 %; Eosinophils # (A) 0.2 k/uL (0-0.7); Eosinophils % (A) 2 %; HCT 37.9 % (34.0-46.0); HGB 12.8 gm/dL (11.4-16.0); Lymphocytes # (A) 2.5 k/uL (1.0-4.8); Lymphocytes % (A) 24 %; MCH 28.9 pg (25.0-35.0); MCHC 33.9 g/dL (31.0-37.0); MCV 85.4 fL (80.0-100.0); Mean Platelet Volume 8.8; Monocytes # (A) 0.6 k/uL (0-1.0); Monocytes % (A) 5 %; Neutrophils # (A) 6.9 k/uL (1.3-7.7); Neutrophils % (A) 66 %; Platelet Count 346 k/uL (150-450); RBC 4.44 m/uL (3.80-5.40); RDW 13.5 % (11.5-15.5); WBC 10.4 k/uL (3.8-10.6)
[2023-07-10 15:52] LABS: Appearance,Urine Cloudy (Clear); Bacteria,Urine Rare /hpf; Bilirubin,Urine Negative (Negative); Blood,Urine Small (Negative); Color,Urine Colorless; Glucose,Urine (UA) Negative (Negative); Ketones,Urine Negative (Negative); Leukocyte Esterase,Urine Large (Negative); Mucus,Urine Occasional /hpf; Nitrite,Urine Negative (Negative); Protein,Urine Trace (Negative); RBC,Urine 30 /hpf (0-5); Specific Gravity,Urine 1.017 (1.001-1.035); Squamous Epithelial Cell,Urine 22 /hpf (0-4); Urobilinogen,Urine <2.0 mg/dL (<2.0); WBC,Urine 101 /hpf (0-5)
[2023-07-10 15:57] LABS: ALT 24 U/L (4-34); African American GFR (CKD) >90 (>60 ml/min/1.73 sqM); Anion Gap 6 mmol/L; Blood Urea Nitrogen 13 mg/dL (7-17); Calcium 9.4 mg/dL (8.4-10.2); Carbon Dioxide 25 mmol/L (22-30); Chloride 107 mmol/L (98-107); Glucose 96 mg/dL (74-99); Non-African American GFR(CKD) >90 (>60 ml/min/1.73 sqM); Sodium 138 mmol/L (137-145); Total Bilirubin 0.6 mg/dL (0.2-1.3)
[2023-07-10 16:18] LABS: AST 29 U/L (14-36); Alkaline Phosphatase 84 U/L (38-126); Potassium 4.9 mmol/L (3.5-5.1)
[2023-07-10 16:54] VITALS: BP 126/84; PULSE 74; RESP 18; TEMP 98.1
== END 2023-07-10 16:32 | disposition home or self-care (01) ==
LOC: EC 14:11
DX: N39.0 Urinary tract infection, site not specified (principal); Z91.030 Bee allergy status; Z91.018 Allergy to other foods; Z91.09 Other allergy status, other than to drugs and biological substances
CPT/HCPCS: 36415; 80053; 81001; 81025; 83605; 85025; 87086; 99284

== ENCOUNTER 2023-12-24 13:50 | Emergency (ER) | payer OTHER ==
[2023-12-24 14:20] VITALS: RESP 18; TEMP 98
--- NOTE | 2023-12-24 14:38 | ED ---
General Adult HPI - General Chief complaint: ENT Stated complaint: throat swelling Time Seen by Provider: 12/24/23 14:27 Source: patient, RN notes reviewed, old records reviewed Mode of arrival: ambulatory Limitations: no limitations - History of Present Illness Initial comments: 28-year-old female with history of sore throat. Patient does report congestion but states this is chronic. No fever. She noted a swelling sensation in the back of her throat. No difficulty breathing. No chest pain. - Related Data Home Medications Medication Instructions Recorded Confirmed Pnv No.95/Ferrous Fum/Folic AC 1 tab PO DAILY 02/07/21 04/12/21 [ Multivitamin Tablet] Albuterol Inhaler [Ventolin Hfa 1 puff INHALATION DIRECTED 03/25/21 04/12/21 Inhaler] Previous Rx's Medication Instructions Recorded Acetaminophen Tab [Tylenol] 1,000 mg PO Q6H tab 05/07/21 Ibuprofen [Motrin] 600 mg PO Q6H #60 tab 05/07/21 Albuterol Inhaler [Ventolin Hfa 2 puff INHALATION Q4HR PRN #1 each 12/13/21 Inhaler] Cephalexin [Keflex] 500 mg PO Q6HR #12 cap 01/08/23 Cephalexin [Keflex] 500 mg PO Q12HR #20 cap 07/10/23 Amoxicillin 875 mg PO Q12HR #20 tablet 08/06/23 predniSONE 50 mg PO DAILY #5 tab 08/06/23 Amoxic-Pot Clav 875-125Mg 1 tab PO Q12HR 10 Days #20 tab 12/24/23 [Augmentin 875-125] Allergies Allergy/AdvReac Type Severity Reaction Status Date / Time bee venom protein (honey bee) Allergy Swelling/Hi Verified 12/24/23 14:20 ves orange juice [[place]] Allergy Anaphylaxis Verified 12/24/23 14:20 pine trees Allergy Swelling/Hi Uncoded 12/24/23 14:20 ves Review of Systems ROS Statement: Those systems with pertinent positive or pertinent negative responses have been documented in the HPI. ROS Other: All systems not noted in ROS Statement are negative. Past Medical History Past Medical History: Asthma Additional Past Medical History / Comment(s): history of kidney stones per patient; patient's had a previous vaginal delivery. History of Any Multi-Drug Resistant Organisms: None Reported Past Surgical History: Appendectomy, Section, Tubal Ligation Past Anesthesia/Blood Transfusion Reactions: No Reported Reaction Past Psychological History: PTSD Smoking Status: Never smoker Past Alcohol Use History: None Reported Past Drug Use History: None Reported - Past Family History Mother History Unknown: Yes Family Medical History: Hypertension General Exam Limitations: no limitations General appearance: alert, in no apparent distress Head exam: Present: atraumatic, normocephalic Eye exam: Present: normal appearance, PERRL ENT exam: Absent: normal oropharynx (Bilateral tonsillar swelling and exudate consistent with strep pharyngitis), mucous membranes dry Neck exam: Present: normal inspection. Absent: tenderness, meningismus Respiratory exam: Present: normal lung sounds bilaterally. Absent: respiratory distress, wheezes Cardiovascular Exam: Present: regular rate, normal rhythm GI/Abdominal exam: Present: soft. Absent: distended, tenderness, guarding Neurological exam: Present: alert, oriented X3 Psychiatric exam: Present: normal affect, normal mood Skin exam: Present: warm, dry, intact Course Vital Signs 12/24/23 12/24/23 14:16 14:31 Temperature 98.0 F Pulse Rate 94 87 Respiratory 18 18 Rate Blood Pressure 133/84 142/95 O2 Sat by Pulse 97 98 Oximetry Medical Decision Making - Medical Decision Making Was pt. sent in by a medical professional or institution ( PA, [employer]OL[employer] RIVETER, urgent care, hospital, or assisted...) When possible be specific @ -No Did you speak to anyone other than the patient for history (EMS, parent, family, police, friend...)? What history was obtained from this source @ -No Did you review nursing and triage notes (agree or disagree)? Why? @ -I reviewed and agree with nursing and triage notes Were old charts reviewed (outside hosp., previous admission, EMS record, old EKG, old radiological studies, urgent care reports/EKG's, assisted records)? Report findings @ -No old charts were reviewed Differential Diagnosis: Strep pharyngitis, viral tonsillitis, [id number]-mouth, CMV EKG interpreted by me (3pts min.). @ -As above X-rays interpreted by me (1pt min.). @ -None done CT interpreted by me (1pt min.). @ -None done U/S interpreted by me (1pt. min.). @ -None done What testing was considered but not performed or refused? (CT, X-rays, U/S, labs)? Why? @ -None What meds were considered but not given or refused? Why? @ -None Did you discuss the management of the patient with other professionals (professionals i.e. , PA, GOL[employer] STUD RIVETER, lab, RT, psych nurse, social group worker, manager database, teacher, ammunition officer, medical case manager)? Give summary @ -No Was smoking cessation discussed for >3mins.? @ -No Was critical care preformed (if so, how long)? @ -No Were there social determinants of health that impacted care today? How? (Homelessness, low income, unemployed, alcoholism, drug addiction, transportation, low edu. Level, literacy, decrease access to med. care, [facility], rehab)? @ -No Was there de-escalation of care discussed even if they declined (Discuss DNR or withdrawal of care, Hospice)? DNR status @ -No What co-morbidities impacted this encounter? (DM, HTN, Smoking, COPD, CAD, Cancer, CVA, ARF, Chemo, Hep., AIDS, mental health diagnosis, sleep apnea, morbid obesity)? @ -None Was patient admitted / discharged? Hospital course, mention meds given and route, prescriptions, significant lab abnormalities, going to OR and other pertinent info. @ -[28-year-old female with a 1 day history of sore throat, patient has bilateral tonsillar hypertrophy with exudate, erythema consistent with strep pharyngitis. Started on oral biotics. Should follow-up with primary care and return as needed. Undiagnosed new problem with uncertain prognosis? @ -No Drug Therapy requiring intensive monitoring for toxicity (Heparin, Nitro, Insulin, Cardizem)? @ -No Were any procedures done? @ -No Diagnosis/symptom? @ -Strep pharyngitis Acute, or Chronic, or Acute on Chronic? @ -[Acute Uncomplicated (without systemic symptoms) or Complicated (systemic symptoms)? @ -Default Side effects of treatment? @ -No Exacerbation, Progression, or Severe Exacerbation? @ -No Poses a threat to life or bodily function? How? (Chest pain, [place], [place], pneumonia, PE, COPD, DKA, ARF, appy, cholecystitis, CVA, Diverticulitis, Homicidal, Suicidal, threat to staff... and all critical care pts) @Low risk Disposition Clinical Impression: Sore throat, Strep pharyngitis Disposition: HOME SELF-CARE Condition: Fair Instructions (If sedation given, give patient instructions): Strep Throat (ED) Prescriptions: Amoxic-Pot Clav 875-125Mg [Augmentin 875-125] 1 tab PO Q12HR 10 Days #20 tab Is patient prescribed a controlled substance at d/c from ED?: No Referrals: None,Stated [Primary Care Provider] - 1-2 days Time of Disposition: 14:38
[2023-12-24] MEDS: DEXAMETHASONE SOD PHOSPHATE 10 MG/ML 1 ML VIAL IM STA (14:58)
[2023-12-24] MEDS: AMOXIC-POT CLAV 875-125MG 1 EACH TAB PO STA (15:00)
[2023-12-24 15:39] VITALS: BP 132/89; PULSE 85
== END 2023-12-24 15:39 | disposition home or self-care (01) ==
LOC: EC 13:50
CPT/HCPCS: 87651; 96372; 99283

== ENCOUNTER 2024-01-14 13:50 | Emergency (ER) | payer OTHER ==
[2024-01-14 14:04] VITALS: RESP 18
--- NOTE | 2024-01-14 14:26 | XR ---
Right knee. HISTORY: Pain. COMPARISON: None. TECHNIQUE: 3 views of the right knee were obtained. FINDINGS: There is no fracture, dislocation, intraosseous, intra-articular or soft tissue abnormality. There is no joint effusion. IMPRESSION: No significant abnormality seen. [facility] Henrik Keys, Workstation: [facility], 01/14/2024 2:23 PM
--- NOTE | 2024-01-14 15:31 | ED ---
Lower Extremity Injury HPI - General Chief Complaint: Extremity Injury, Lower Stated Complaint: knee pain Time Seen by Provider: 01/14/24 14:05 Source: patient Mode of arrival: ambulatory Limitations: no limitations - History of Present Illness Initial Comments: This is a 28-year-old female presenting with sudden onset right knee pain (9 out of 10) x 2 days. Patient denies recent trauma or fall prior to start of knee pain. Describes pain as intermittent and sharp radiating from the anterior aspect of her knee and moving bilaterally. Patient states pain is worse with movement, position change and going up/down stairs. Patient denies any popping, catching or giving out. Denies [id number] medication use. Patient denies known recent tick bite, fever, chills, fatigue. Patient endorses history of ACL tear playing high school soccer over 10 years ago. MD Complaint: knee injury Onset/Timin -: days(s) Injury: Knee: Right Severity scale (1-10): 9 Improves With: immobilization Worsens With: weight bearing, movement, palpation - Related Data Home Medications Medication Instructions Recorded Confirmed Pnv No.95/Ferrous Fum/Folic AC 1 tab PO DAILY 02/07/21 04/12/21 [ Multivitamin Tablet] Albuterol Inhaler [Ventolin Hfa 1 puff INHALATION DIRECTED 03/25/21 04/12/21 Inhaler] Previous Rx's Medication Instructions Recorded Acetaminophen Tab [Tylenol] 1,000 mg PO Q6H tab 05/07/21 Ibuprofen [Motrin] 600 mg PO Q6H #60 tab 05/07/21 Albuterol Inhaler [Ventolin Hfa 2 puff INHALATION Q4HR PRN #1 each 12/13/21 Inhaler] Cephalexin [Keflex] 500 mg PO Q6HR #12 cap 01/08/23 Cephalexin [Keflex] 500 mg PO Q12HR #20 cap 07/10/23 Amoxicillin 875 mg PO Q12HR #20 tablet 08/06/23 predniSONE 50 mg PO DAILY #5 tab 08/06/23 Amoxic-Pot Clav 875-125Mg 1 tab PO Q12HR 10 Days #20 tab 12/24/23 [Augmentin 875-125] Allergies Allergy/AdvReac Type Severity Reaction Status Date / Time bee venom protein (honey bee) Allergy Swelling/Hi Verified 01/14/24 14:04 ves orange juice [[place]] Allergy Anaphylaxis Verified 01/14/24 14:04 pine trees Allergy Swelling/Hi Uncoded 01/14/24 14:04 ves Review of Systems ROS Statement: Those systems with pertinent positive or pertinent negative responses have been documented in the HPI. ROS Other: All systems not noted in ROS Statement are negative. Past Medical History Past Medical History: Asthma Additional Past Medical History / Comment(s): history of kidney stones per patient; patient's had a previous vaginal delivery. History of Any Multi-Drug Resistant Organisms: None Reported Past Surgical History: Appendectomy, Section, Tubal Ligation Past Anesthesia/Blood Transfusion Reactions: No Reported Reaction Past Psychological History: No Psychological Hx Reported, PTSD Smoking Status: Never smoker Past Alcohol Use History: None Reported Past Drug Use History: None Reported - Past Family History Mother History Unknown: Yes Family Medical History: Hypertension General Exam Limitations: no limitations General appearance: alert, in no apparent distress Head exam: Present: atraumatic, normocephalic, normal inspection Eye exam: Present: normal appearance, PERRL, EOMI. Absent: scleral icterus, conjunctival injection, periorbital swelling ENT exam: Present: normal exam, mucous membranes moist Neck exam: Present: normal inspection. Absent: tenderness, meningismus, lymphadenopathy Respiratory exam: Present: normal lung sounds bilaterally. Absent: respiratory distress, wheezes, rales, rhonchi, stridor Cardiovascular Exam: Present: regular rate, normal rhythm, normal heart sounds. Absent: systolic murmur, diastolic murmur, rubs, gallop, clicks GI/Abdominal exam: Present: soft, normal bowel sounds. Absent: distended, tenderness, guarding, rebound, rigid Extremities exam: Present: full ROM, tenderness (Positive medial and subpatellar exquisite tenderness), normal capillary refill, joint swelling (Positive medial knee edema), other (Negative overlying erythema or ecchymosis. Negative Lach man's or varus test. Positive pain with apprehension and valgus test and positive Regan's test). Absent: pedal edema, calf tenderness Back exam: Present: normal inspection Neurological exam: Present: alert, oriented X3, CN II-XII intact Psychiatric exam: Present: normal affect, normal mood Skin exam: Present: warm, dry, intact, normal color. Absent: rash Course Vital Signs 01/14/24 01/14/24 01/14/24 14:02 15:42 16:05 Temperature 98.2 F 98.0 F Pulse Rate 116 H 95 94 Respiratory 18 18 Rate Blood Pressure 139/97 129/86 O2 Sat by Pulse 97 100 100 Oximetry Medical Decision Making - Medical Decision Making Was pt. sent in by a medical professional or institution (, PA, MANAGER FUNCTIONAL, urgent care, hospital, or usp...) When possible be specific @ -No Did you speak to anyone other than the patient for history (EMS, parent, family, police, friend...)? What history was obtained from this source @ -No Did you review nursing and triage notes (agree or disagree)? Why? @ -I reviewed and agree with nursing and triage notes Were old charts reviewed (outside hosp., previous admission, EMS record, old EKG, old radiological studies, urgent care reports/EKG's, usp records)? Report findings @ -No old charts were reviewed Differential Diagnosis (chest pain, altered mental status, abdominal pain women, abdominal pain men, vaginal bleeding, weakness, fever, dyspnea, syncope, headache, dizziness, GI bleed, back pain, seizure, CVA, palpatations, mental health, musculoskeletal)? @ -Knee contusion, ligament sprain, ligament tear, meniscus tear, patellar fr acture, tibial plateau fracture, femur fracture, Ellis's cyst, gout, cellulitis, this is not an exhaustive list EKG interpreted by me (3pts min.). @ -Not done X-rays interpreted by me (1pt min.). @ -Right knee x-ray revealed no obvious fracture, dislocation or deformity CT interpreted by me (1pt min.). @ -None done U/S interpreted by me (1pt. min.). @ -None done What testing was considered but not performed or refused? (CT, X-rays, U/S, labs)? Why? @ -None What meds were considered but not given or refused? Why? @ -Patient declined Toradol for pain management Did you discuss the management of the patient with other professionals (professionals i.e. , MEHDI, MANAGER FUNCTIONAL, lab, RT, psych nurse, manager social services, adjunct physics instructor, teacher, chairman and chief executive officer, dependency case manager)? Give summary @ -No Was smoking cessation discussed for >3mins.? @ -No Was critical care preformed (if so, how long)? @ -No Were there social determinants of health that impacted care today? How? (Homelessness, low income, unemployed, alcoholism, drug addiction, transportation, low edu. Level, literacy, decrease access to med. care, custodial, rehab)? @ -No Was there de-escalation of care discussed even if they declined (Discuss DNR or withdrawal of care, Hospice)? DNR status @ -No What co-morbidities impacted this encounter? (DM, HTN, Smoking, COPD, CAD, Cancer, CVA, ARF, Chemo, Hep., AIDS, mental health diagnosis, sleep apnea, morbid obesity)? @ -None Was patient admitted / discharged? Hospital course, mention meds given and route, prescriptions, significant lab abnormalities, going to OR and other pertinent info. @ -Discharge. No obvious fracture or dislocation noted on knee x-ray. Patient provided Cory wrap and cold compress. Advised follow-up with Ortho for ongoing care and imaging. Undiagnosed new problem with uncertain prognosis? @ -No Drug Therapy requiring intensive monitoring for toxicity (Heparin, Nitro, Insulin, Cardizem)? @ -No Were any procedures done? @ -No Diagnosis/symptom? @ -Knee pain Acute, or Chronic, or Acute on Chronic? @ -Acute Uncomplicated (without systemic symptoms) or Complicated (systemic symptoms)? @ -Uncomplicated Side effects of treatment? @ -No Exacerbation, Progression, or Severe Exacerbation? @ -No Poses a threat to life or bodily function? How? (Chest pain, [place], [place], pneumonia, PE, COPD, DKA, ARF, appy, cholecystitis, CVA, Diverticulitis, Homicidal, Suicidal, threat to staff... and all critical care pts) @ -No Disposition Clinical Impression: Knee pain, right Disposition: HOME SELF-CARE Condition: Good Instructions (If sedation given, give patient instructions): Knee Sprain (ED), Knee Pain (ED) Is patient prescribed a controlled substance at d/c from ED?: No Referrals: None,Stated [Primary Care Provider] - 1-2 days Time of Disposition: 15:42
[2024-01-14 16:07] VITALS: BP 129/86; PULSE 94; TEMP 98
== END 2024-01-14 16:07 | disposition home or self-care (01) ==
LOC: EC 13:50
DX: M25.561 Pain in right knee (principal); Z91.030 Bee allergy status; Z91.02 Food additives allergy status
CPT/HCPCS: 99283

== ENCOUNTER 2024-04-05 06:45 | Emergency (ER) | payer OTHER ==
--- NOTE | 2024-04-05 07:14 | ED ---
General Adult HPI - General Chief complaint: Nausea/Vomiting/Diarrhea Stated complaint: Nausea Vomiting Time Seen by Provider: 04/05/24 07:01 Source: patient, RN notes reviewed Mode of arrival: ambulatory Limitations: no limitations - History of Present Illness Initial comments: Patient is a 28-year-old female present to the emergency department with co ncerns with nausea vomiting. Onset of symptoms was yesterday. Patient does have some cramping prior to emesis otherwise no abdominal pain. No fever. No congestion or upper respiratory symptoms. Patient denies possible secondary to having history of tubal ligation. - Related Data Home Medications Medication Instructions Recorded Confirmed Pnv No.95/Ferrous Fum/Folic AC 1 tab PO DAILY 02/07/21 04/12/21 [ Multivitamin Tablet] Albuterol Inhaler [Ventolin Hfa 1 puff INHALATION DIRECTED 03/25/21 04/12/21 Inhaler] Previous Rx's Medication Instructions Recorded Acetaminophen Tab [Tylenol] 1,000 mg PO Q6H tab 05/07/21 Ibuprofen [Motrin] 600 mg PO Q6H #60 tab 05/07/21 Albuterol Inhaler [Ventolin Hfa 2 puff INHALATION Q4HR PRN #1 each 12/13/21 Inhaler] Cephalexin [Keflex] 500 mg PO Q6HR #12 cap 01/08/23 Cephalexin [Keflex] 500 mg PO Q12HR #20 cap 07/10/23 Amoxicillin 875 mg PO Q12HR #20 tablet 08/06/23 predniSONE 50 mg PO DAILY #5 tab 08/06/23 Amoxic-Pot Clav 875-125Mg 1 tab PO Q12HR 10 Days #20 tab 12/24/23 [Augmentin 875-125] Allergies Allergy/AdvReac Type Severity Reaction Status Date / Time bee venom protein (honey bee) Allergy Swelling/Hi Verified 04/05/24 06:48 ves orange juice [[place]] Allergy Anaphylaxis Verified 04/05/24 06:48 pine trees Allergy Swelling/Hi Uncoded 04/05/24 06:48 ves Review of Systems ROS Statement: Those systems with pertinent positive or pertinent negative responses have been documented in the HPI. ROS Other: All systems not noted in ROS Statement are negative. Constitutional: Denies: fever Eyes: Denies: eye pain ENT: Denies: ear pain Respiratory: Denies: cough Cardiovascular: Denies: chest pain Endocrine: Denies: fatigue Gastrointestinal: Reports: as per HPI, nausea, vomiting. Denies: diarrhea, constipation Genitourinary: Denies: dysuria Musculoskeletal: Denies: back pain Past Medical History Past Medical History: Asthma Additional Past Medical History / Comment(s): history of kidney stones per patient; patient's had a previous vaginal delivery. History of Any Multi-Drug Resistant Organisms: None Reported Past Surgical History: Appendectomy, Section, Tubal Ligation Past Anesthesia/Blood Transfusion Reactions: No Reported Reaction Past Psychological History: PTSD Smoking Status: Never smoker Past Alcohol Use History: None Reported Past Drug Use History: None Reported - Past Family History Mother History Unknown: Yes Family Medical History: Hypertension General Exam Limitations: no limitations General appearance: alert, in no apparent distress Head exam: Present: atraumatic Eye exam: Present: normal appearance Respiratory exam: Present: normal lung sounds bilaterally Cardiovascular Exam: Present: normal rhythm, tachycardia Expanded Peripheral pulses: 2+: Dorsalis Pedis (R), Dorsalis Pedis (L) GI/Abdominal exam: Present: soft, normal bowel sounds. Absent: distended, tenderness, guarding, rebound, rigid, pulsatile mass Extremities exam: Present: normal inspection Neurological exam: Present: alert Psychiatric exam: Present: normal affect, normal mood Skin exam: Present: normal color Course Vital Signs 04/05/24 04/05/24 04/05/24 06:49 07:45 08:29 Temperature 97.7 F 98.8 F 97.8 F Pulse Rate 111 H 102 H 98 Respiratory 16 17 16 Rate Blood Pressure 170/99 138/85 145/81 O2 Sat by Pulse 98 98 98 Oximetry Medical Decision Making - Medical Decision Making Was pt. sent in by a medical professional or institution (, PA, STOGIE PACKER, urgent care, hospital, or alf...) When possible be specific @ -No Did you speak to anyone other than the patient for history (EMS, parent, family, police, friend...)? What history was obtained from this source @ -No Did you review nursing and triage notes (agree or disagree)? Why? @ -I reviewed and agree with nursing and triage notes Were old charts reviewed (outside hosp., previous admission, EMS record, old EKG, old radiological studies, urgent care reports/EKG's, alf records)? Report findings @ -No old charts were reviewed Differential Diagnosis (chest pain, altered mental status, abdominal pain women, abdominal pain men, vaginal bleeding, weakness, fever, dyspnea, syncope, headache, dizziness, GI bleed, back pain, seizure, CVA, palpatations, mental health, musculoskeletal)? @ -Differential Abdominal Pain Women: Appendicitis, Cholecystitis, diverticulosis, ischemic bowel, pancreatitis, hepatitis, UTI, gastroenteritis, AAA, incarcerated hernia, bowel obstruction, constipation, inflammatory bowel, hepatitis, peptic ulcer disease, splenic infarction, perforated viscus, vulvitis, ovarian torsion, PID, kidney stone, placenta abruption, this is not meant to be an all-inclusive list EKG interpreted by me (3pts min.). @ -As above X-rays interpreted by me (1pt min.). @ -None done CT interpreted by me (1pt min.). @ -None done U/S interpreted by me (1pt. min.). @ -None done What testing was considered but not performed or refused? (CT, X-rays, U/S, labs)? Why? @ -Considered imaging however abdomen is nontender. Considered test however patient has had tubal ligation What meds were considered but not given or refused? Why? @ -Considered further medication however patient is comfortable on re assessment. Did you discuss the management of the patient with other professionals (professionals i.e. , PA, STOGIE PACKER, lab, RT, psych nurse, social service assistant, ramp flight attendant, teacher, ship officer, pillowcase maker)? Give summary @ -No Was smoking cessation discussed for >3mins.? @ -No Was critical care preformed (if so, how long)? @ -No Were there social determinants of health that impacted care today? How? ( Homelessness, low income, unemployed, alcoholism, drug addiction, transportation, low edu. Level, literacy, decrease access to med. care, assisted, rehab)? @ -No Was there de-escalation of care discussed even if they declined (Discuss DNR or withdrawal of care, Hospice)? DNR status @ -No What co-morbidities impacted this encounter? (DM, HTN, Smoking, COPD, CAD, Cancer, CVA, ARF, Chemo, Hep., AIDS, mental health diagnosis, sleep apnea, morbid obesity)? @ -None Was patient admitted / discharged? Hospital course, mention meds given and route, prescriptions, significant lab abnormalities, going to OR and other pertinent info. @ -Patient presents with nausea and vomiting. Abdomen soft and nontender. Evaluation unremarkable. On reevaluation patient is feeling much better. Patient updated on results. Patient does request work note. Undiagnosed new problem with uncertain prognosis? @ -No Drug Therapy requiring intensive monitoring for toxicity (Heparin, Nitro, Insulin, Cardizem)? @ -No Were any procedures done? @ -No Diagnosis/symptom? @ -Vomiting Acute, or Chronic, or Acute on Chronic? @ -Acute Uncomplicated (without systemic symptoms) or Complicated (systemic symptoms)? @ -Default Side effects of treatment? @ -No Exacerbation, Progression, or Severe Exacerbation? @ -No Poses a threat to life or bodily function? How? (Chest pain, [place], [place], pneumonia, PE, COPD, DKA, ARF, appy, cholecystitis, CVA, Diverticulitis, Homicidal, Suicidal, threat to staff... and all critical care pts) @ -No - Lab Data Result diagrams: 04/05/24 07:35 04/05/24 07:35 Lab Results 04/05/24 04/05/24 Range/Units 07:35 07:35 WBC 8.4 (3.8-10.6) k/uL RBC 4.92 (3.80-5.40) m/uL Hgb 13.5 (11.4-16.0) gm/dL Hct 40.6 (34.0-46.0) % MCV 82.5 (80.0-100.0) fL MCH 27.4 (25.0-35.0) pg MCHC 33.3 (31.0-37.0) g/dL RDW 13.4 (11.5-15.5) % Plt Count 300 (150-450) k/uL MPV 8.5 Neutrophils % 84 % Lymphocytes % 10 % Monocytes % 4 % Eosinophils % 1 % Basophils % 0 % Neutrophils # 7.0 (1.3-7.7) k/uL Lymphocytes # 0.9 L (1.0-4.8) k/uL Monocytes # 0.4 (0-1.0) k/uL Eosinophils # 0.1 (0-0.7) k/uL Basophils # 0.0 (0-0.2) k/uL Sodium 137 (137-145) mmol/L Potassium 4.0 (3.5-5.1) mmol/L Chloride 102 (98-107) mmol/L Carbon Dioxide 24 (22-30) mmol/L Anion Gap 11 mmol/L BUN 11 (7-17) mg/dL Creatinine 0.60 (0.52-1.04) mg/dL Est GFR (CKD-EPI)AfAm >90 (>60 ml/min/1.73 sqM) Est GFR (CKD-EPI)NonAf >90 (>60 ml/min/1.73 sqM) Glucose 107 H (74-99) mg/dL Calcium 9.1 (8.4-10.2) mg/dL Total Bilirubin 0.4 (0.2-1.3) mg/dL AST 33 (14-36) U/L ALT 49 H (4-34) U/L Alkaline Phosphatase 99 (38-126) U/L Total Protein 7.1 (6.3-8.2) g/dL Albumin 4.4 (3.5-5.0) g/dL Amylase 36 (30-110) U/L Lipase 39 (23-300) U/L Disposition Clinical Impression: Nausea and vomiting Disposition: HOME SELF-CARE Condition: Stable Instructions (If sedation given, give patient instructions): Acute Nausea and Vomiting (ED) Additional Instructions: Zofran as needed for nausea and vomiting. Please do follow-up with primary care physician in the next couple of days for recheck. Work note provided. Return for fever, abdominal pain, uncontrolled vomiting, worsening symptoms or other concerns. Is patient prescribed a controlled substance at d/c from ED?: No Referrals: None,Stated [Primary Care Provider] - 1-2 days Forms: Area PCPs Time of Disposition: 08:33
[2024-04-05] MEDS: SODIUM CHLORIDE 0.9% 1,000 ML IV STA (07:37)
[2024-04-05] MEDS: FAMOTIDINE 20 MG/2 ML VIAL IV STA (07:38)
[2024-04-05] MEDS: ONDANSETRON 4 MG/2 ML VIAL IVP STA (07:41)
[2024-04-05 08:01] LABS: ALT 49 U/L (4-34); AST 33 U/L (14-36); African American GFR (CKD) >90 (>60 ml/min/1.73 sqM); Albumin 4.4 g/dL (3.5-5.0); Alkaline Phosphatase 99 U/L (38-126); Amylase 36 U/L (30-110); Anion Gap 11 mmol/L; Blood Urea Nitrogen 11 mg/dL (7-17); Calcium 9.1 mg/dL (8.4-10.2); Carbon Dioxide 24 mmol/L (22-30); Chloride 102 mmol/L (98-107); Glucose 107 mg/dL (74-99); Lipase 39 U/L (23-300); Non-African American GFR(CKD) >90 (>60 ml/min/1.73 sqM); Sodium 137 mmol/L (137-145); Total Bilirubin 0.4 mg/dL (0.2-1.3); Total Protein 7.1 g/dL (6.3-8.2)
[2024-04-05 08:02] LABS: Basophils % (A) 0 %; Eosinophils # (A) 0.1 k/uL (0-0.7); Eosinophils % (A) 1 %; HCT 40.6 % (34.0-46.0); HGB 13.5 gm/dL (11.4-16.0); Lymphocytes # (A) 0.9 k/uL (1.0-4.8); Lymphocytes % (A) 10 %; MCH 27.4 pg (25.0-35.0); MCHC 33.3 g/dL (31.0-37.0); MCV 82.5 fL (80.0-100.0); Mean Platelet Volume 8.5; Monocytes # (A) 0.4 k/uL (0-1.0); Monocytes % (A) 4 %; Neutrophils % (A) 84 %; Platelet Count 300 k/uL (150-450); RBC 4.92 m/uL (3.80-5.40); RDW 13.4 % (11.5-15.5); WBC 8.4 k/uL (3.8-10.6)
[2024-04-05 08:30] VITALS: BP 145/81; PULSE 98; RESP 16; TEMP 97.8
[2024-04-05] MEDS: ONDANSETRON 4 MG ODT STARTER PACK 2 TAB BTL PO STA (08:38)
== END 2024-04-05 08:45 | disposition home or self-care (01) ==
LOC: EC 06:45
DX: R11.2 Nausea with vomiting, unspecified (principal); Z91.030 Bee allergy status; Z91.018 Allergy to other foods
CPT/HCPCS: 36415; 80053; 82150; 83690; 85025; 99284; 96374; 96375; 96361; J2405; J3490; S0119

== ENCOUNTER 2024-06-26 07:38 | Emergency (ER) | payer OTHER ==
--- NOTE | 2024-06-26 08:23 | ED ---
URI HPI - General Source: patient, RN notes reviewed Mode of arrival: ambulatory Limitations: no limitations <Fuentes,Holly - Last Filed: 06/26/24 15:30> <German White - Last Filed: 06/27/24 14:21> - General Chief Complaint: Upper Respiratory Infection Stated Complaint: cough Time Seen by Provider: 06/26/24 07:45 - History of Present Illness Initial Comments: 28-year-old female with past medical history significant for asthma presents to the ER with productive cough for the last 4 days. Patient endorses some sore throat as well and nasal congestion. Patient denies any recent antibiotic or steroid use. Denies fevers, chills, abdominal pain, urinary or bowel complaints. (Holly Fuentes) - Related Data Home Medications Medication Instructions Recorded Confirmed Pnv No.95/Ferrous Fum/Folic AC 1 tab PO DAILY 02/07/21 04/12/21 [ Multivitamin Tablet] Albuterol Inhaler [Ventolin Hfa 1 puff INHALATION DIRECTED 03/25/21 04/12/21 Inhaler] Previous Rx's Medication Instructions Recorded Acetaminophen Tab [Tylenol] 1,000 mg PO Q6H tab 05/07/21 Ibuprofen [Motrin] 600 mg PO Q6H #60 tab 05/07/21 Albuterol Inhaler [Ventolin Hfa 2 puff INHALATION Q4HR PRN #1 each 12/13/21 Inhaler] Cephalexin [Keflex] 500 mg PO Q6HR #12 cap 01/08/23 Cephalexin [Keflex] 500 mg PO Q12HR #20 cap 07/10/23 Amoxicillin 875 mg PO Q12HR #20 tablet 08/06/23 predniSONE 50 mg PO DAILY #5 tab 08/06/23 Amoxic-Pot Clav 875-125Mg 1 tab PO Q12HR 10 Days #20 tab 12/24/23 [Augmentin 875-125] Albuterol Inhaler [Ventolin Hfa 2 puff INHALATION Q6H PRN #1 each 06/26/24 Inhaler] Fluticasone Nasal [place] [Flonase 2 spray EA NOSTRIL DAILY #16 gm 06/26/24 Nasal [place]] guaiFENesin-DM 600/30MG [Mucinex 1 tab PO Q12HR 7 Days #14 tab 06/26/24 Dm] Allergies Allergy/AdvReac Type Severity Reaction Status Date / Time bee venom protein (honey bee) Allergy Swelling/Hi Verified 04/05/24 06:48 ves orange juice [[place]] Allergy Anaphylaxis Verified 04/05/24 06:48 pine trees Allergy Swelling/Hi Uncoded 04/05/24 06:48 ves Review of Systems ROS Other: All systems not noted in ROS Statement are negative. Constitutional: Denies: fever, chills ENT: Reports: throat pain Respiratory: Reports: cough Cardiovascular: Denies: chest pain, palpitations Gastrointestinal: Denies: abdominal pain, nausea, vomiting Genitourinary: Denies: urgency, dysuria Skin: Denies: rash, lesions Neurological: Denies: headache, weakness <Holly Fuentes - Last Filed: 06/26/24 15:30> ROS Other: All systems not noted in ROS Statement are negative. <German White - Last Filed: 06/27/24 14:21> ROS Statement: Those systems with pertinent positive or pertinent negative responses have been documented in the HPI. Past Medical History Past Medical History: Asthma Additional Past Medical History / Comment(s): history of kidney stones per patient; patient's had a previous vaginal delivery. History of Any Multi-Drug Resistant Organisms: None Reported Past Surgical History: Appendectomy, Section, Tubal Ligation Past Anesthesia/Blood Transfusion Reactions: No Reported Reaction Past Psychological History: PTSD Smoking Status: Never smoker Past Alcohol Use History: None Reported Past Drug Use History: None Reported - Past Family History Mother History Unknown: Yes Family Medical History: Hypertension <Holly Fuentes - Last Filed: 06/26/24 15:30> General Exam Limitations: no limitations General appearance: alert, in no apparent distress Head exam: Present: atraumatic, normocephalic Respiratory exam: Absent: respiratory distress, wheezes, rales Cardiovascular Exam: Present: regular rate, normal rhythm GI/Abdominal exam: Present: soft. Absent: distended, tenderness Psychiatric exam: Present: normal affect, normal mood Skin exam: Present: warm, dry, intact <AlfredoHolly - Last Filed: 06/26/24 15:30> Course Vital Signs 06/26/24 06/26/24 06/26/24 07:45 07:57 09:27 Temperature 97.8 F 97.7 F Pulse Rate 120 H 103 H Respiratory 20 18 16 Rate Blood Pressure 150/102 150/90 O2 Sat by Pulse 98 100 Oximetry 06/26/24 10:18 Temperature 97.8 F Pulse Rate 99 Respiratory 16 Rate Blood Pressure 145/86 O2 Sat by Pulse 100 Oximetry Medical Decision Making <Holly Fuentes - Last Filed: 06/26/24 15:30> <German White - Last Filed: 06/27/24 14:21> - Medical Decision Making Was pt. sent in by a medical professional or institution (, PA, BOWLING BALL PATCHER, urgent care, hospital, or care home...) When possible be specific @ -No Did you speak to anyone other than the patient for history (EMS, parent, family, police, friend...)? What history was obtained from this source @ -No Did you review nursing and triage notes (agree or disagree)? Why? @ -I reviewed and agree with nursing and triage notes Were old charts reviewed (outside hosp., previous admission, EMS record, old EKG, old radiological studies, urgent care reports/EKG's, care home records)? Report findings @ -No old charts were reviewed Differential Diagnosis? @ -URI, influenza B, COVID, acute viral syndrome, allergic rhinitis, asthma exacerbation, this is not an all-inclusive list EKG interpreted by me (3pts min.). @ -As above X-rays interpreted by me (1pt min.). @ -None done CT interpreted by me (1pt min.). @ -None done U/S interpreted by me (1pt. min.). @ -None done What testing was considered but not performed or refused? (CT, X-rays, U/S, labs)? Why? @ -None What meds were considered but not given or refused? Why? @ -None Did you discuss the management of the patient with other professionals (professionals i.e. , MEHD[facility], BOWLING BALL PATCHER, lab, RT, psych nurse, social services, paperhanger assistant, teacher, restoration officer, showcase maker)? Give summary @ -No Was smoking cessation discussed for >3mins.? @ -No Was critical care preformed (if so, how long)? @ -No Were there social determinants of health that impacted care today? How? (Homelessness, low income, unemployed, alcoholism, drug addiction, transportation, low edu. Level, literacy, decrease access to med. care, nursing home, rehab)? @ -No Was there de-escalation of care discussed even if they declined (Discuss DNR or withdrawal of care, Hospice)? DNR status @ -No What co-morbidities impacted this encounter? (DM, HTN, Smoking, COPD, CAD, Cancer, CVA, ARF, Chemo, Hep., AIDS, mental health diagnosis, sleep apnea, morbid obesity)? @ -None Was patient admitted / discharged? Hospital course, mention meds given and route, prescriptions, significant lab abnormalities, going to OR and other pertinent info. @ -Patient was swabbed for Cepheid 4 Plex and was negative for flu, COVID, RSV. Patient will be discharged home with Mucinex, Flonase, and albuterol. Patient has to follow-up with PCP in 1 to 2 days. Undiagnosed new problem with uncertain prognosis? @ -No Drug Therapy requiring intensive monitoring for toxicity (Heparin, Nitro, Insulin, Cardizem)? @ -No Were any procedures done? @ -No Diagnosis/symptom? @ -Acute URI Acute, or Chronic, or Acute on Chronic? @ -Acute Uncomplicated (without systemic symptoms) or Complicated (systemic symptoms)? @ -Uncomplicated Side effects of treatment? @ -No Exacerbation, Progression, or Severe Exacerbation? @ -No Poses a threat to life or bodily function? How? (Chest pain, [place], [place], pneumonia, PE, COPD, DKA, ARF, appy, cholecystitis, CVA, Diverticulitis, Homicidal, Suicidal, threat to staff... and all critical care pts) @ -No (Holly Fuentes) I personally saw the patient and performed the critical portion of the service. I discussed the patient care with the resident. I directed management, care planning and final disposition of the patient. This includes, but not limited to, review of all lab work, radiological studies, EKG's, consultations, vital signs, and nursing notes. EKG interpreted by me (3pts min.) @As above X-Rays interpreted by me (1 pt min.) @None CT interpreted by me ( 1pt min.) @None U/S interpreted by me (1 pt min.) @None Critical care time of 0 minutes excluding separately billable procedures was spent in conjunction with critical care activities provided by the Resident and Attending simultaneously. I was present during no procedures for all critical portions of the procedure and as immediately available to furnish service during the entire procedure. (German White) - Lab Data Lab Results 06/26/24 Range/Units 08:15 Influenza Type A (PCR) Not Detected (Not Detectd) Influenza Type B (PCR) Not Detected (Not Detectd) RSV (PCR) Not Detected (Not Detectd) SARS-CoV-2 (PCR) Not Detected (Not Detectd) Disposition Is patient prescribed a controlled substance at d/c from ED?: No <Holly Fuentes - Last Filed: 06/26/24 15:30> <German hWite - Last Filed: 06/27/24 14:21> Clinical Impression: Upper respiratory tract infection Disposition: HOME SELF-CARE Additional Instructions: Patient will be discharged home with self-care. Patient to take Mucinex, albuterol, and Flonase as instructed. Tylenol or Motrin for fevers. Patient to follow-up with PCP in 1 to 2 days. Patient to return to ER if symptoms worsen or persist. Prescriptions: Fluticasone Nasal [place] [Flonase Nasal [place]] 2 spray EA NOSTRIL DAILY #16 gm guaiFENesin-DM 600/30MG [Mucinex Dm] 1 tab PO Q12HR 7 Days #14 tab Albuterol Inhaler [Ventolin Hfa Inhaler] 2 puff INHALATION Q6H PRN #1 each PRN Reason: Shortness Of Breath Or Wheezing Referrals: None,Stated [Primary Care Provider] - 1-2 days
[2024-06-26 09:28] VITALS: RESP 16
[2024-06-26 09:48] LABS: Influenza A Not Detected (Not Detectd); Influenza B Not Detected (Not Detectd); RSV Not Detected (Not Detectd)
[2024-06-26 10:20] VITALS: BP 145/86; PULSE 99; TEMP 97.8
== END 2024-06-26 10:20 | disposition home or self-care (01) ==
LOC: EC 07:38
DX: J06.9 Acute upper respiratory infection, unspecified (principal); J45.909 Unspecified asthma, uncomplicated; Z91.018 Allergy to other foods; Z91.030 Bee allergy status
CPT/HCPCS: 87636; 99283

== ENCOUNTER 2024-07-02 06:20 | Emergency (ER) | payer OTHER ==
[2024-07-02 06:23] VITALS: RESP 20
--- NOTE | 2024-07-02 06:41 | ED ---
General Adult HPI - General Source: patient Mode of arrival: ambulatory Limitations: no limitations <Gianluca Loredo - Last Filed: 07/02/24 06:41> - General Source: RN notes reviewed <Td Tinajero - Last Filed: 07/02/24 07:38> - General Chief complaint: Upper Respiratory Infection Stated complaint: Cough Time Seen by Provider: 07/02/24 06:35 - History of Present Illness Initial comments: Dictation was produced using Flo[employer] dictation software. please excuse any grammatical, word or spelling errors. Chief Complaint: 28-year-old female persistent cough History of Present Illness: Patient 28-year-old female presents emergency department persistent cough. Patient was seen here in the emergency department approximate 1 week ago. States that she has a cough not getting any better. States that she was swabbed. She states that now that she is coughing cough is productive of sputum. Patient reports history of asthma The ROS documented in this emergency department record has been reviewed and confirmed by me. Those systems with pertinent positive or negative responses have been documented in the HPI. All other systems are other negative and/or noncontributory. (Gianluca Loredo) - Related Data Home Medications Medication Instructions Recorded Confirmed Pnv No.95/Ferrous Fum/Folic AC 1 tab PO DAILY 02/07/21 04/12/21 [ Multivitamin Tablet] Albuterol Inhaler [Ventolin Hfa 1 puff INHALATION DIRECTED 03/25/21 04/12/21 Inhaler] Previous Rx's Medication Instructions Recorded Acetaminophen Tab [Tylenol] 1,000 mg PO Q6H tab 05/07/21 Ibuprofen [Motrin] 600 mg PO Q6H #60 tab 05/07/21 Albuterol Inhaler [Ventolin Hfa 2 puff INHALATION Q4HR PRN #1 each 12/13/21 Inhaler] Cephalexin [Keflex] 500 mg PO Q6HR #12 cap 01/08/23 Cephalexin [Keflex] 500 mg PO Q12HR #20 cap 07/10/23 Amoxicillin 875 mg PO Q12HR #20 tablet 08/06/23 predniSONE 50 mg PO DAILY #5 tab 08/06/23 Amoxic-Pot Clav 875-125Mg 1 tab PO Q12HR 10 Days #20 tab 12/24/23 [Augmentin 875-125] Albuterol Inhaler [Ventolin Hfa 2 puff INHALATION Q6H PRN #1 each 06/26/24 Inhaler] Fluticasone Nasal [place] [Flonase 2 spray EA NOSTRIL DAILY #16 gm 06/26/24 Nasal [place]] guaiFENesin-DM 600/30MG [Mucinex 1 tab PO Q12HR 7 Days #14 tab 06/26/24 Dm] Azithromycin [Zithromax Z Pack] 0 tab PO DIRECTED #6 tab 07/02/24 predniSONE 50 mg PO DAILY #5 tab 07/02/24 Allergies Allergy/AdvReac Type Severity Reaction Status Date / Time bee venom protein (honey bee) Allergy Swelling/Hi Verified 07/02/24 06:24 ves orange juice [[place]] Allergy Anaphylaxis Verified 07/02/24 06:24 pine trees Allergy Swelling/Hi Uncoded 07/02/24 06:24 ves Review of Systems ROS Other: All systems not noted in ROS Statement are negative. <Gianluca Loredo - Last Filed: 07/02/24 06:41> ROS Other: All systems not noted in ROS Statement are negative. <Td Tinajero - Last Filed: 07/02/24 07:38> ROS Statement: Those systems with pertinent positive or pertinent negative responses have been documented in the HPI. Past Medical History Past Medical History: Asthma Additional Past Medical History / Comment(s): history of kidney stones per patient; patient's had a previous vaginal delivery. History of Any Multi-Drug Resistant Organisms: None Reported Past Surgical History: Appendectomy, Section, Tubal Ligation Past Anesthesia/Blood Transfusion Reactions: No Reported Reaction Past Psychological History: PTSD Smoking Status: Never smoker Past Alcohol Use History: None Reported Past Drug Use History: None Reported - Past Family History Mother History Unknown: Yes Family Medical History: Hypertension <Gianluca Loredo - Last Filed: 07/02/24 06:41> General Exam Limitations: no limitations <Gianluca Loredo - Last Filed: 07/02/24 06:41> General appearance: alert, in no apparent distress Head exam: Present: atraumatic, normocephalic, normal inspection Eye exam: Present: normal appearance, PERRL, EOMI. Absent: scleral icterus, conjunctival injection, periorbital swelling ENT exam: Present: normal exam, normal oropharynx, mucous membranes moist Neck exam: Present: normal inspection. Absent: tenderness, meningismus, lymphadenopathy Respiratory exam: Present: wheezes, rhonchi. Absent: normal lung sounds bilaterally, respiratory distress, rales, stridor Cardiovascular Exam: Present: regular rate, normal rhythm, normal heart sounds. Absent: systolic murmur, diastolic murmur, rubs, gallop, clicks <Td Tinajero M - Last Filed: 07/02/24 07:38> - General Exam Comments Initial Comments: PHYSICAL EXAM: General Impression: Alert and oriented x3, not in acute distress HEENT: Normocephalic atraumatic, extra-ocular movements intact, pupils equal and reactive to light bilaterally, mucous membranes moist. Cardiovascular: Heart regular rate and rhythm Chest: Able to complete full sentences, no retractions, no tachypnea Abdomen: abdomen soft, non-tender, non-distended, no organomegaly Musculoskeletal: Pulses present and equal in all extremities, no peripheral edema Motor: no focal deficits noted Neurological: CN II-XII grossly intact, no focal motor or sensory deficits noted Skin: Intact with no visualized rashes Psych: Normal affect and mood (Gianluca Loredo) Course Vital Signs 07/02/24 06:21 Temperature 98.7 F Pulse Rate 112 H Respiratory 20 Rate Blood Pressure 136/87 O2 Sat by Pulse 99 Oximetry Medical Decision Making <Td Tinajero Sasha - Last Filed: 07/02/24 07:38> - Medical Decision Making Was pt. sent in by a medical professional or institution (, PA, BUSINESS LIAISON MANAGER, urgent care, hospital, or prison...) When possible be specific @ -No Did you speak to anyone other than the patient for history (EMS, parent, family, police, friend...)? What history was obtained from this source @ -No Did you review nursing and triage notes (agree or disagree)? Why? @ -I reviewed and agree with nursing and triage notes Were old charts reviewed (outside hosp., previous admission, EMS record, old EKG, old radiological studies, urgent care reports/EKG's, prison records)? Report findings @ -No old charts were reviewed Differential Diagnosis (chest pain, altered mental status, abdominal pain women, abdominal pain men, vaginal bleeding, weakness, fever, dyspnea, syncope, headache, dizziness, GI bleed, back pain, seizure, CVA, palpatations, mental health, musculoskeletal)? @ -COVID 19, RSV, influenza, pneumonia, acute bronchitis, URI, this list is not all inclusive EKG interpreted by me (3pts min.). @ -As above X-rays interpreted by me (1pt min.). @ -Chest x-ray shows left lower lobe pneumonia CT interpreted by me (1pt min.). @ -None done U/S interpreted by me (1pt. min.). @ -None done What testing was considered but not performed or refused? (CT, X-rays, U/S, labs)? Why? @ -None What meds were considered but not given or refused? Why? @ -None Did you discuss the management of the patient with other professionals (professionals i.e. , PA, BUSINESS LIAISON MANAGER, lab, RT, psych nurse, nephrology social worker, auto phone installer, teacher, youth liaison officer, case management social worker)? Give summary @ -No Was smoking cessation discussed for >3mins.? @ -No Was critical care preformed (if so, how long)? @ -No Were there social determinants of health that impacted care today? How? (Homelessness, low income, unemployed, alcoholism, drug addiction, transportation, low edu. Level, literacy, decrease access to med. care, shelter, rehab)? @ -No Was there de-escalation of care discussed even if they declined (Discuss DNR or withdrawal of care, Hospice)? DNR status @ -No What co-morbidities impacted this encounter? (DM, HTN, Smoking, COPD, CAD, Cancer, CVA, ARF, Chemo, Hep., AIDS, mental health diagnosis, sleep apnea, morbid obesity)? @ -Asthma Was patient admitted / discharged? Hospital course, mention meds given and route, prescriptions, significant lab abnormalities, going to OR and other pertinent info. @ -Discharge patient has left lower lobe pneumonia, patient does have underlying asthma be discharged on oral antibiotics, steroids continuation of albuterol treatments. Return parameters ivonne. Undiagnosed new problem with uncertain prognosis? @ -No Drug Therapy requiring intensive monitoring for toxicity (Heparin, Nitro, Insulin, Cardizem)? @ -No Were any procedures done? @ -No Diagnosis/symptom? @ -Pneumonia Acute, or Chronic, or Acute on Chronic? @ -Acute Uncomplicated (without systemic symptoms) or Complicated (systemic symptoms)? @ -complicated Side effects of treatment? @ -No Exacerbation, Progression, or Severe Exacerbation? @ -No Poses a threat to life or bodily function? How? (Chest pain, [place], [place], pneumonia, PE, COPD, DKA, ARF, appy, cholecystitis, CVA, Diverticulitis, Homicidal, Suicidal, threat to staff... and all critical care pts) @ -Yes low likelihood pneumonia, causing respiratory failure (Td Tinajero) Disposition <Gianluca Loredo - Last Filed: 07/02/24 06:41> Is patient prescribed a controlled substance at d/c from ED?: No Time of Disposition: 07:38 <Td Tinajero - Last Filed: 07/02/24 07:38> Clinical Impression: Pneumonia Disposition: HOME SELF-CARE Condition: Stable Instructions (If sedation given, give patient instructions): Pneumonia (ED) Additional Instructions: Please return to the Emergency Department if symptoms worsen or any other concerns. Prescriptions: predniSONE 50 mg PO DAILY #5 tab Azithromycin [Zithromax Z Pack] 0 tab PO DIRECTED #6 tab Referrals: None,Stated [Primary Care Provider] - 1-2 days
--- NOTE | 2024-07-02 07:15 | XR ---
EXAMINATION TYPE: XR chest 2V DATE OF EXAM: 07/02/2024 7:12 AM COMPARISON: 12/13/2021 CLINICAL INDICATION: Female, 28 years old with history of cough, TECHNIQUE: XR chest 2V view(s) obtained. FINDINGS: The heart size is normal. The pulmonary vasculature is normal. There is mild left lower lobe infiltrate. Correlate for pneumonia. IMPRESSION: 1. Mild left lower lobe infiltrate. Correlate for pneumonia. [facility], , 07/02/2024 7:13 AM
[2024-07-02] MEDS: cefTRIAXone 1,000 MG VIAL (IM USE) IM STA (07:58)
[2024-07-02] MEDS: AZITHROMYCIN 500 MG TAB PO STA (07:58)
[2024-07-02 08:24] VITALS: BP 123/87; PULSE 101; TEMP 98.4
== END 2024-07-02 08:23 | disposition home or self-care (01) ==
LOC: EC 06:20
DX: J18.9 Pneumonia, unspecified organism (principal); J45.909 Unspecified asthma, uncomplicated; Z91.030 Bee allergy status; Z91.02 Food additives allergy status
CPT/HCPCS: 71046; 99283; 96372; J0696